=== PATIENT | female | born 1965 | race Hispanic/Latino ===

== ENCOUNTER 2017-11-21 16:09 | Emergency (ER) | payer MEDICAID ==
--- NOTE | 2017-11-21 16:15 | ED PDOC ---
Arrival/HPI - General Time Seen by Provider: 11/21/17 16:10 Historian: Patient - History of Present Illness Narrative History of Present Illness (Text): 11/21/17 16:13 52yo female with PMhx of hypertension, HLD, Diabetes, renal mass, s/p cholecystectomy and appendectomy bib EMS for abdominal pain and associated nausea and vomiting since last night. Past Medical History - Provider Review Nursing Documentation Reviewed: Yes - Infectious Disease Hx of Infectious Diseases: None - Tetanus Immunization Tetanus Immunization: Unknown - Cardiac Hx Hypertension: Yes - Pulmonary Hx Lung Cancer: Yes (Questionable) - Neurological Hx Neurological Disorder: No - HEENT Hx HEENT Disorder: No - Renal Hx Renal Disorder: Yes (Stage 2) - Endocrine/Metabolic Hx Diabetes Mellitus Type 1: Yes - Hematological/Oncological Hx Cancer: Yes (renal) - Integumentary Hx Dermatological Disorder: No - Musculoskeletal/Rheumatological Hx Falls: No - Gastrointestinal Hx Gastrointestinal Ulcer: Yes - Genitourinary/Gynecological Hx Genitourinary Disorders: No - Psychiatric Hx Substance Use: No - Surgical History Other/Comment: 2014 TUMOR REMOVAL OF RIGHT KIDNEY PER PATIENT - Anesthesia Hx Anesthesia: Yes Hx Anesthesia Reactions: No Hx Malignant Hyperthermia: No - Suicidal Assessment Feels Threatened In Home Enviroment: No Family/Social History - Physician Review Nursing Documentation Reviewed: Yes Family/Social History: Unknown Family HX Smoking Status: Never Smoked Hx Alcohol Use: No Hx Substance Use: No Hx Substance Use Treatment: No Allergies/Home Meds Allergies/Adverse Reactions: Allergies No Known Allergies Allergy (Verified 06/12/17 15:43) Home Medications: Home Meds Medication Instructions Recorded Confirmed Atorvastatin [Lipitor] 20 mg PO DAILY 11/01/16 06/12/17 Insulin Lispro [Humalog (Insulin 100 unit SQ AC 11/01/16 11/01/16 Lispro)] Valsartan [Diovan] 160 mg PO DAILY 11/01/16 06/12/17 Alogliptin Benzoate [Alogliptin] 25 mg PO DAILY 06/12/17 06/12/17 Insulin Glargine,Hum.rec.anlog 20 unit SQ HS 06/12/17 06/12/17 [Basaglar Kwikpen U-100] Insulin Lispro [Humalog Kwikpen 15 unit SQ TID 06/12/17 06/12/17 U-100] Omeprazole 40 mg PO DAILY 06/12/17 06/12/17 Spironolactone [Aldactone] 25 mg PO DAILY 06/12/17 06/12/17 metFORMIN [glucOPHAGE] 500 mg PO BID 06/12/17 06/12/17 Review of Systems - Physician Review All systems were reviewed & negative as marked: Yes - Review of Systems Constitutional: Normal Eyes: Normal ENT: Normal Respiratory: Normal Cardiovascular: Normal Gastrointestinal: Abdominal Pain, Nausea, Vomiting. absent: Constipation, Diarrhea, Hematochezia, Hematemesis Genitourinary Female: Normal Musculoskeletal: Normal Skin: Normal Neurological: Dizziness. absent: Headache, Focal Weakness, Gait Changes, Speech Changes Endocrine: Normal Hemo/Lymphatic: Normal Psychiatric: Normal Physical Exam Vital Signs Reviewed: Yes Vital Signs Temp Pulse Resp BP Pulse Ox 11/21/17 16:40 99.4 F 11/21/17 16:18 108 H 18 170/100 H 96 Temperature: Afebrile Blood Pressure: Normal Pulse: Regular Respiratory Rate: Normal Appearance: Positive for: Well-Appearing, Non-Toxic, Comfortable, Other (Morbid obesity) Pain Distress: None Mental Status: Positive for: Alert and Oriented X 3 - Systems Exam Head: Present: Atraumatic, Normocephalic Pupils: Present: PERRL Extroacular Muscles: Present: EOMI Conjunctiva: Present: Normal Mouth: Present: Moist Mucous Membranes Neck: Present: Normal Range of Motion Respiratory/Chest: Present: Clear to Auscultation, Good Air Exchange. No: Respiratory Distress, Accessory Muscle Use Cardiovascular: Present: Regular Rate and Rhythm, Normal S1, S2. No: Murmurs Abdomen: Present: Normal Bowel Sounds. No: Tenderness, Distention, Peritoneal Signs Back: Present: Normal Inspection Upper Extremity: Present: Normal Inspection. No: Cyanosis, Edema Lower Extremity: Present: Normal Inspection. No: Edema Neurological: Present: GCS=15, CN II-XII Intact, Speech Normal Skin: Present: Warm, Dry, Normal Color. No: Rashes Psychiatric: Present: Alert, Oriented x 3, Normal Insight, Normal Concentration Medical Decision Making - Lab Interpretations Lab Results: 11/21/17 16:35 11/21/17 16:35 Lab Results 11/21/17 17:13: Urine Color Yellow, Urine Appearance Clear, Urine pH 6.0, Ur Specific [place] >= 1.030, Urine Protein >=300 H, Urine Glucose (UA) Negative, Urine Ketones Negative, Urine Blood Small H, Urine Nitrate Positive H, Urine Bilirubin Negative, Urine Urobilinogen 0.2, Ur Leukocyte Esterase Negative, Urine RBC 5 - 10, Urine WBC 25 - 30, Ur Epithelial Cells 3 - 4, Calcium Oxalate Crystal Mod, Urine Bacteria Large, Urine Other Mucus 11/21/17 16:35: Sodium 142, Potassium 3.6, Chloride 102, Carbon Dioxide 25, Anion Gap 19, BUN 17, Creatinine 1.0, Est GFR ( Amer) > 60, Est GFR (Non- Af Amer) 59, Random Glucose 145 H, Calcium 10.2, Total Bilirubin 0.7, AST 52 H, ALT 63 H, Alkaline Phosphatase 114, Total Protein 8.8 H, Albumin 4.5, Globulin 4.3, Albumin/Globulin Ratio 1.0 L, Lipase 146 11/21/17 16:35: PT 10.8, INR 0.95, APTT 32.5 11/21/17 16:35: WBC 9.6 D, RBC 4.49, Hgb 11.8 L, Hct 37.5, MCV 83.5, MCH 26.3, MCHC 31.5, RDW 13.9, Plt Count 327, MPV 10.0, Gran % 70.9 H, Lymph % (Auto) 20.9 L, [place] % (Auto) 6.2 H, Eos % (Auto) 1.7, Baso % (Auto) 0.3, Gran # 6.83 H , Lymph # (Auto) 2.0, [place] # (Auto) 0.6, Eos # (Auto) 0.2, Baso # (Auto) 0.03 - RAD Interpretation Radiology Orders: 11/21/17 16:35 ABD & PELVIS W/O PO OR IV CONT [CT] Stat - Medication Orders Current Medication Orders: Discontinued Medications Cephalexin Monohydrate (Keflex) 500 mg PO STAT STA PRN Reason: Protocol Stop: 11/21/17 17:58 Famotidine (Pepcid) 20 mg IVP STAT STA Stop: 11/21/17 16:36 Last Admin: 11/21/17 17:16 Dose: 20 mg IVP Administration Document 11/21/17 17:16 SF (Rec: 11/21/17 17:16 SF [id number]) Charges for Administration # of IVP Administrations 1 Sodium Chloride (Sodium Chloride 0.9%) 1,000 mls @ 1,000 mls/hr IV .Q1H STA Stop: 11/21/17 17:34 Last Admin: 11/21/17 16:35 Dose: 1,000 mls/hr eMAR Start Stop Document 11/21/17 16:35 SF (Rec: 11/21/17 17:15 SF [id number]) Intravenous Solution Start Date 11/21/17 Start Time 16:35 End Date 11/21/17 End time 17:35 Total Infusion Time 60 Ondansetron HCl (Zofran Inj) 4 mg IVP STAT STA Stop: 11/21/17 16:36 Last Admin: 11/21/17 16:35 Dose: 4 mg IVP Administration Document 11/21/17 16:35 SF (Rec: 11/21/17 17:16 SF [id number]) Charges for Administration # of IVP Administrations 1 Disposition/Present on Arrival - Present on Arrival Any Indicators Present on Arrival: No History of DVT/PE: No History of Uncontrolled Diabetes: Yes Urinary Catheter: No History Surgical Site Infection Following: None - Disposition Have Diagnosis and Disposition been Completed?: Yes Diagnosis: Urinary tract infection, Abdominal pain, Vomiting Disposition: HOME/ ROUTINE Disposition Time: 18:10 Isolation: Special Contact Patient Plan: Discharge Condition: STABLE Discharge Instructions (ExitCare): Urinary Tract Infections in Adults Additional Instructions: Follow up with your Doctor and take the antibiotics given by your Doctor as was prescribed REturn to ED for any new or worsening symptoms Referrals: [facility] [place] [facility] [place] - Follow up with primary
[2017-11-21 16:24] VITALS: BMI 33.2
[2017-11-21] MEDS ORDERED: Sodium Chloride 0.9% 1,000 ML IV STA (16:35)
[2017-11-21 16:41] VITALS: TEMP 99.4
[2017-11-21 16:50] LABS: BASO # 0.03 K/mm3 (0.0-2.0); BASO % 0.3 % (0.0-3.0); EOS # 0.2 (0.0-0.7); EOS % 1.7 % (1.5-5.0); GRAN # 6.83 (1.4-6.5); GRAN % 70.9 % (50.0-68.0); HEMOGLOBIN 11.8 g/dL (12.0-16.0); LYMPH % 20.9 % (22.0-35.0); MEAN CELL VOLUME 83.5 fl (80.0-105.0); MEAN CORPUSCULAR HEMOGLOBIN 26.3 pg (25.0-35.0); MEAN CORPUSCULAR HGB CONC 31.5 g/dl (31.0-37.0); MONO # 0.6 (0.1-0.6); MONO % 6.2 % (1.0-6.0); RBC 4.49 10^6/uL (3.5-6.1); RED CELL DISTRIBUTION WIDTH 13.9 % (11.5-14.5); WHITE BLOOD COUNT 9.6 10^3/ul (4.5-11.0)
[2017-11-21 16:56] LABS: ALBUMIN 4.5 g/dL (3.0-4.8); ALT/SGPT 63 U/L (7-56); AST/SGOT 52 U/L (14-36); BLOOD UREA NITROGEN 17 mg/dL (7-21); CALCIUM 10.2 mg/dL (8.4-10.5); GFR AFRICAN-AMERICAN > 60; GFR NON-AFRICAN AMERICAN 59; LIPASE 146 U/L (23-300)
[2017-11-21 17:12] LABS: INR 0.95 (0.93-1.08); PARTIAL THROMBOPLASTIN TIME 32.5 Seconds (25.1-36.5); PROTHROMBIN TIME 10.8 SECONDS (9.4-12.5)
[2017-11-21 17:28] LABS: URINE BILIRUBIN NEGATIVE (NEGATIVE); URINE BLOOD SMALL (NEGATIVE); URINE GLUCOSE (UA) NEGATIVE (NEGATIVE); URINE LEUKOCYTE ESTERASE NEGATIVE Leu/uL (NEGATIVE); URINE PROTEIN >=300 mg/dL (<30 mg/dL); URINE UROBILINOGEN 0.2 E.U./dL (<1 E.U./dL)
[2017-11-21 17:29] LABS: URINE APPEARANCE CLEAR (CLEAR); URINE COLOR YELLOW (YELLOW)
[2017-11-21 17:54] LABS: URINE BACTERIA LARGE (NEG); URINE CALCIUM OXALATE CRYSTALS MOD /hpf; URINE WBC 25 - 30 /hpf (0-6)
--- NOTE | 2017-11-21 17:56 | CT ---
PROCEDURE: CT Abdomen and Pelvis without intravenous contrast HISTORY: Dizziness, vomiting and right upper quadrant/back pain COMPARISON: 12/12/2014 CT abdomen and pelvis. 01/26/2016 abdominal ultrasound TECHNIQUE: Unenhanced study. Neither oral nor intravenous contrast administered. Radiation dose: Total exam DLP = Total exam DLP = 914.76 mGy-cm. This CT exam was performed using one or more of the following dose reduction techniques: Automated exposure control, adjustment of the mA and/or kV according to patient size, and/or use of iterative reconstruction technique. FINDINGS: LOWER THORAX: Small and stable hiatal hernia. LIVER: Hepatic steatosis. No focal masses. No intrahepatic bile duct dilatation or perihepatic ascites. GALLBLADDER AND BILE DUCTS: Status post cholecystectomy. No abnormality is seen in the gallbladder fossa. PANCREAS: Unremarkable. No gross lesion or ductal dilatation. SPLEEN: Unremarkable. ADRENALS: Unremarkable. No mass. KIDNEYS AND URETERS: Unremarkable. No hydronephrosis. No solid mass. VASCULATURE: Unremarkable. No aortic aneurysm. BOWEL: Diverticulosis without an acute inflammatory component or other associated pathologic process. APPENDIX: No abnormalities to suggest acute appendicitis. No right lower quadrant inflammatory processes identified. PERITONEUM: Unremarkable. No free fluid. No free air. LYMPH NODES: Unremarkable. No enlarged lymph nodes. BLADDER: Unremarkable. REPRODUCTIVE: Unremarkable. BONES: No acute fracture. OTHER FINDINGS: Postoperative changes anterior abdominal wall with scarring. The findings are improved compared to the prior CT scan. IMPRESSION: No acute findings related to/accounting for the clinical presentation. Additional benign and/or incidental findings described above. No significant interval change compared to the prior examination(s).
[2017-11-21 18:57] VITALS: O2SAT 98
[2017-11-21 18:59] VITALS: BP 166/90; PULSE 90; RESP 17
== END 2017-11-21 18:59 | disposition home or self-care (01) ==
LOC: ED 16:09
DX: N39.0 Urinary tract infection, site not specified (principal); R10.9 Unspecified abdominal pain; R11.2 Nausea with vomiting, unspecified; E11.9 Type 2 diabetes mellitus without complications; E78.5 Hyperlipidemia, unspecified; I10 Essential (primary) hypertension
CPT/HCPCS: 74176; 80053; 81001; 83690; 85025; 85610; 85730; 87086; 96361; 96374; 96375; 99285; J2405; J7040

== ENCOUNTER 2018-02-06 10:14 | Emergency (ER) | payer MEDICAID ==
[2018-02-06 10:14] VITALS: BMI 33.2
[2018-02-06 10:32] VITALS: RESP 16
--- NOTE | 2018-02-06 11:36 | ED PDOC ---
Arrival/HPI - General Chief Complaint: Abnormal Skin Integrity Time Seen by Provider: 02/06/18 11:30 Historian: Patient - History of Present Illness Narrative History of Present Illness (Text): 02/06/18 11:31 52yo female with PMhx of diabetes who present with left second finger laceration. States she accidentally cut her finger with a knife while cooking. She is not sure of her tetanus status. She denies any other complaint. Past Medical History - Provider Review Nursing Documentation Reviewed: Yes - Infectious Disease Hx of Infectious Diseases: None - Tetanus Immunization Tetanus Immunization: Unknown - Cardiac Hx Cardiac Disorders: Yes Hx Hypertension: Yes - Pulmonary Hx Respiratory Disorders: Yes Hx Lung Cancer: Yes - Neurological Hx Neurological Disorder: No - HEENT Hx HEENT Disorder: No - Renal Hx Renal Disorder: Yes Hx Renal Cancer: Yes - Endocrine/Metabolic Hx Endocrine Disorders: Yes Hx Diabetes Mellitus Type 1: Yes - Hematological/Oncological Hx Blood Disorders: Yes Hx Cancer: Yes - Integumentary Hx Dermatological Disorder: No - Musculoskeletal/Rheumatological Hx Musculoskeletal Disorders: Yes Other/Comment: CHRONIC PAIN - Gastrointestinal Hx Gastrointestinal Disorders: Yes Hx Gastrointestinal Ulcer: Yes - Genitourinary/Gynecological Hx Genitourinary Disorders: Yes Hx Urinary Tract Infection: Yes - Psychiatric Hx Psychophysiologic Disorder: No Hx Substance Use: No - Surgical History Other/Comment: 2014 TUMOR REMOVAL OF RIGHT KIDNEY PER PATIENT - Anesthesia Hx Anesthesia: Yes Hx Anesthesia Reactions: No Hx Malignant Hyperthermia: No - Suicidal Assessment Feels Threatened In Home Enviroment: No Family/Social History - Physician Review Nursing Documentation Reviewed: Yes Family/Social History: Unknown Family HX Smoking Status: Never Smoked Hx Alcohol Use: No Hx Substance Use: No Hx Substance Use Treatment: No Allergies/Home Meds Allergies/Adverse Reactions: Allergies No Known Allergies Allergy (Verified 02/06/18 10:25) Home Medications: Home Meds Medication Instructions Recorded Confirmed Atorvastatin [Lipitor] 20 mg PO DAILY 11/01/16 02/06/18 Insulin Lispro [Humalog (Insulin 100 unit SQ AC 11/01/16 02/06/18 Lispro)] Valsartan [Diovan] 160 mg PO DAILY 11/01/16 02/06/18 Insulin Glargine,Hum.rec.anlog 20 unit SQ HS 06/12/17 02/06/18 [Basaglar Kwikpen U-100] Insulin Lispro [Humalog Kwikpen 15 unit SQ TID 06/12/17 02/06/18 U-100] Omeprazole 40 mg PO DAILY 06/12/17 02/06/18 Spironolactone [Aldactone] 25 mg PO DAILY 06/12/17 02/06/18 metFORMIN [glucOPHAGE] 500 mg PO BID 06/12/17 02/06/18 Review of Systems - Physician Review All systems were reviewed & negative as marked: Yes - Review of Systems Constitutional: Normal Eyes: Normal ENT: Normal Respiratory: Normal Cardiovascular: Normal Gastrointestinal: Normal Genitourinary Female: Normal Musculoskeletal: Normal Skin: Laceration (Left index finger) Neurological: Normal Endocrine: Normal Hemo/Lymphatic: Normal Psychiatric: Normal Physical Exam Vital Signs Reviewed: Yes Vital Signs Temp Pulse Resp BP Pulse Ox 02/06/18 12:36 98 F 76 16 142/86 98 02/06/18 12:34 98 F 76 16 142/86 100 02/06/18 10:27 98.1 F 67 16 150/92 H 99 Temperature: Afebrile Blood Pressure: Normal Pulse: Regular Respiratory Rate: Normal Appearance: Positive for: Well-Appearing, Non-Toxic, Comfortable Pain Distress: None Mental Status: Positive for: Alert and Oriented X 3 - Systems Exam Head: Present: Atraumatic, Normocephalic Pupils: Present: PERRL Extroacular Muscles: Present: EOMI Conjunctiva: Present: Normal Mouth: Present: Moist Mucous Membranes Neck: Present: Normal Range of Motion Respiratory/Chest: Present: Clear to Auscultation, Good Air Exchange. No: Respiratory Distress, Accessory Muscle Use Cardiovascular: Present: Regular Rate and Rhythm, Normal S1, S2. No: Murmurs Abdomen: No: Tenderness, Distention, Peritoneal Signs Back: Present: Normal Inspection Upper Extremity: Present: Normal Inspection. No: Cyanosis, Edema Lower Extremity: Present: Normal Inspection. No: Edema Neurological: Present: GCS=15, CN II-XII Intact, Speech Normal Skin: Present: Warm, Dry, Normal Color, Laceration (1.0cm circular partially avulsed laceration to tip of left index). No: Rashes Psychiatric: Present: Alert, Oriented x 3, Normal Insight, Normal Concentration Medical Decision Making ED Course and Treatment: 02/06/18 20:13 PT presented with finger laceration. Edges approximated with steri strip and dermabond Tetanus booster updated Pt have hx of diabetes placed on prophylactic abx Referred to her PMD - Medication Orders Current Medication Orders: Discontinued Medications Acetaminophen (Tylenol 325mg Tab) 650 mg PO STAT STA Stop: 02/06/18 11:45 Last Admin: 02/06/18 11:51 Dose: 650 mg MAR Pain/Vitals Document 02/06/18 11:51 [facility] (Rec: 02/06/18 11:51 [facility] [id number]) Location Left, Right or Bilateral Left Pain Location Body Site Finger Intensity 5 Cephalexin Monohydrate (Keflex) 500 mg PO STAT STA PRN Reason: Protocol Stop: 02/06/18 11:46 Last Admin: 02/06/18 11:51 Dose: 500 mg Tetanus/Reduced Diphtheria/Acell Pertussis (Boostrix Vaccine Inj) 0.5 ml IM .ONCE ONE Stop: 02/06/18 11:45 Last Admin: 02/06/18 11:50 Dose: 0.5 ml Immunization Registry Document 02/06/18 11:50 [facility] (Rec: 02/06/18 11:50 [facility] [id number]) Immunization Registry Consent Date 11/21/17 Procedure: Wound Repair - Consent Obtained Consent obtained: Verbal - Performed by Performed by: Mid-level Provider - Indications Indication(s):: Laceration - Location Finger:: Left, Index Shape:: Curvilinear Dimensions Length cm: 1.0 - Debris Debris:: None - Wound repair method Derry:: Tissue glue, Steri-strips - Muscle repiar layer closed with Muscle repair layer closed with:: Wound well approximated, Dressing applied, Tetanus ordered - Patient tolerated procedure Patient Tolerated Procedure:: Well Disposition/Present on Arrival - Present on Arrival Any Indicators Present on Arrival: No History of DVT/PE: No History of Uncontrolled Diabetes: Yes Urinary Catheter: No History of Decub. Ulcer: No History Surgical Site Infection Following: None - Disposition Have Diagnosis and Disposition been Completed?: Yes Diagnosis: Finger laceration Disposition: HOME/ ROUTINE Disposition Time: 12:25 Patient Plan: Discharge Condition: STABLE Discharge Instructions (ExitCare): Laceration Repair Additional Instructions: Keep wound clean and dry Follow up with your doctor Return to ED for any new or worsening symptoms Prescriptions: Cephalexin [Keflex] 500 mg PO TID #21 capsule Referrals: [facility] at [facility] [place]Outside] - Follow up with primary Forms: [employer] (Uzbek)
[2018-02-06] MEDS ORDERED: TDAP Vaccine 0.5 mL Syr IM ONE (11:44)
[2018-02-06 12:35] VITALS: BP 142/86; PULSE 76; TEMP 98
[2018-02-06 12:37] VITALS: O2SAT 98
== END 2018-02-06 12:39 | disposition home or self-care (01) ==
LOC: ED 10:14
DX: S61.211A Laceration without foreign body of left index finger without damage to nail, initial encounter (principal); W26.0XXA Contact with knife, initial encounter; Y93.G3 Activity, cooking and baking; Y92.89 Other specified places as the place of occurrence of the external cause; Z23 Encounter for immunization

== ENCOUNTER 2018-06-28 19:17 | Inpatient (IN) | payer MEDICAID ==
[2018-06-28 19:32] VITALS: BMI 28.5
[2018-06-28] MEDS ORDERED: Morphine 2 mg/ml ISec IVP STA (19:35)
[2018-06-28] MEDS ORDERED: Sodium Chloride 0.9% 1,000 ML IV STA (19:35)
--- NOTE | 2018-06-28 20:35 | ED PDOC ---
Arrival/HPI - General Chief Complaint: Abdominal Pain Time Seen by Provider: 06/28/18 19:30 Historian: Patient - History of Present Illness Narrative History of Present Illness (Text): 06/28/18 19:30 Hilary Naranjo is a 52 year old female, whose past medical history includes hypertension, diabetes, UTIs, kidney tumor, and cholecystectomy, who presents to the ED complaining of abdominal pain. Patient states she has been experiencing RUQ for 1 day. Patient denies any nausea, vomiting, diarrhea, chest pain, urinary symptoms, or any other complaints. Time/Duration: 24 hours Symptom Onset: Gradual Symptom Course: Unchanged Activities at Onset: Light Context: Home Past Medical History - Provider Review Nursing Documentation Reviewed: Yes - Infectious Disease Hx of Infectious Diseases: None - Tetanus Immunization Tetanus Immunization: Unknown - Cardiac Hx Hypertension: Yes - Pulmonary Hx Respiratory Disorders: Yes Hx Lung Cancer: Yes - Neurological Hx Neurological Disorder: No - HEENT Hx HEENT Disorder: No - Renal Hx Renal Disorder: Yes - Endocrine/Metabolic Hx Endocrine Disorders: Yes Hx Diabetes Mellitus Type 1: Yes - Hematological/Oncological Hx Blood Disorders: Yes Hx Cancer: Yes - Integumentary Hx Dermatological Disorder: No - Musculoskeletal/Rheumatological Hx Musculoskeletal Disorders: Yes Other/Comment: CHRONIC PAIN - Gastrointestinal Hx Gastrointestinal Ulcer: Yes - Genitourinary/Gynecological Hx Genitourinary Disorders: Yes Hx Urinary Tract Infection: Yes - Psychiatric Hx Substance Use: No - Surgical History Hx Appendectomy: Yes Hx Cholecystectomy: Yes - Anesthesia Hx Anesthesia: Yes Hx Anesthesia Reactions: No Hx Malignant Hyperthermia: No - Suicidal Assessment Feels Threatened In Home Enviroment: No Family/Social History - Physician Review Nursing Documentation Reviewed: Yes Family/Social History: Unknown Family HX Smoking Status: Never Smoked Hx Alcohol Use: No Hx Substance Use: No Hx Substance Use Treatment: No Allergies/Home Meds Allergies/Adverse Reactions: Allergies No Known Allergies Allergy (Verified 02/06/18 10:25) Home Medications: Home Meds Medication Instructions Recorded Confirmed Atorvastatin [Lipitor] 20 mg PO DAILY 11/01/16 02/06/18 Insulin Lispro [Humalog (Insulin 100 unit SQ AC 11/01/16 02/06/18 Lispro)] Valsartan [Diovan] 160 mg PO DAILY 11/01/16 02/06/18 Insulin Glargine,Hum.rec.anlog 20 unit SQ HS 06/12/17 02/06/18 [Basaglar Kwikpen U-100] Insulin Lispro [Humalog Kwikpen 15 unit SQ TID 06/12/17 02/06/18 U-100] Omeprazole 40 mg PO DAILY 06/12/17 02/06/18 Spironolactone [Aldactone] 25 mg PO DAILY 06/12/17 02/06/18 metFORMIN [glucOPHAGE] 500 mg PO BID 06/12/17 02/06/18 Review of Systems - Physician Review All systems were reviewed & negative as marked: Yes - Review of Systems Constitutional: Normal Eyes: Normal ENT: Normal Respiratory: Normal Cardiovascular: Normal Gastrointestinal: Abdominal Pain. absent: Diarrhea, Nausea, Vomiting Genitourinary Female: Normal Musculoskeletal: Normal Skin: Normal Neurological: Normal Endocrine: Normal Hemo/Lymphatic: Normal Psychiatric: Normal Physical Exam Vital Signs Reviewed: Yes Vital Signs Temp Pulse Resp BP Pulse Ox 06/28/18 19:37 97.4 F L 67 18 118/80 96 Temperature: Afebrile Blood Pressure: Normal Pulse: Regular Respiratory Rate: Normal Appearance: Positive for: Well-Appearing, Non-Toxic, Comfortable Pain Distress: None Mental Status: Positive for: Alert and Oriented X 3 - Systems Exam Head: Present: Atraumatic, Normocephalic Pupils: Present: PERRL Extroacular Muscles: Present: EOMI Conjunctiva: Present: Normal Mouth: Present: Moist Mucous Membranes Neck: Present: Normal Range of Motion Respiratory/Chest: Present: Clear to Auscultation, Good Air Exchange. No: Respiratory Distress, Accessory Muscle Use Cardiovascular: Present: Regular Rate and Rhythm, Normal S1, S2. No: Murmurs Abdomen: Present: Tenderness (RUQ tenderness). No: Distention, Peritoneal Signs Back: Present: Normal Inspection Upper Extremity: Present: Normal Inspection. No: Cyanosis, Edema Lower Extremity: Present: Normal Inspection. No: Edema Neurological: Present: GCS=15, CN II-XII Intact, Speech Normal Skin: Present: Warm, Dry, Normal Color. No: Rashes Psychiatric: Present: Alert, Oriented x 3, Normal Insight, Normal Concentration Medical Decision Making ED Course and Treatment: 06/28/18 19:30 Impression: 52 year old female c/o RUQ pain x 1 day. Plan: -- Hepatic US -- EKG -- Labs, cardiac enzymes, amylase, lipase, blood cultures -- UA, urine cultures -- IV fluids -- Zofran -- Pepcid -- Morphine -- Reassess and disposition Progress Notes: Reviewed EKG, NSR at [address]-segment elevations or depressions, no T-wave inversions, normal intervals. 06/28/18 21:35 Hepatic US reviewed, shows: Liver Measures 13.89 x 10.76 cm. Increased echogenicity of the liver parenchyma. No mass. No intrahepatic bile duct dilatation. Gallbladder Removed. Common bile duct Measures 7.4 mm. No stones. No dilatation. Pancreas Unremarkable as visualized. No mass. No ductal dilatation. Right kidney Measures 9.35 x 3.75 x 4.3 cm in length. Normal echogenicity. No calculus, mass, or hydronephrosis. Aorta No aneurysmal dilatation. IVC Unremarkable. Other Findings None. Impression 1. Fatty liver. 2. Status post cholecystectomy. Electronically signed on Jun 28, 2018 9:20:01 PM EDT by: Da Morocho M.D., MBA Certified By ABR & [employer] Fellowship Trained MRI and CT Specialist CT Abdomen and Pelvis ordered. 06/28/18 23:14 CT Abdomen and Pelvis reviewed, shows: The liver is of uniform attenuation without mass or defect. There is minimal intrahepatic biliary ductal dilatation, this is likely related to cholecystectomy status. CBD measures up to 7 mm within limits of normal. The spleen is normal. The patient is status post cholecystectomy. The pancreas is of normal contour and attenuation characteristics. There is no evidence of adrenal mass. Post surgical changes are present in the anterior abdominal wall. There is a small fat containing right anterior abdominal wall hernia. Both kidneys demonstrate prompt and equal nephrograms. The kidneys are normal in size, shape and configuration. There is no evidence of renal or ureteral mass. No renal or ureteral calculi are identified. There is no hydroureter or hydronephrosis. No evidence for appendicitis. There is evidence of circumferential wall thickening involving all colonic segments consistent with mild humphries-colitis. No evidence for small or large bowel obstruction. Scattered colonic diverticulae are present with no evidence of acute diverticulitis. There is no evidence of abdominal ascites or lymphadenopathy. The uterus and ovaries are unremarkable. There is no evidence of intrinsic or extrinsic bladder mass. There is no pelvic ascites or lymphadenopathy. Images of the lung bases show no evidence of pleural or parenchymal mass. There are no pleural effusions. Small hiatal hernia is present. The bony structures are free of lytic or blastic lesions. IMPRESSION: 1. Mild pancolitis. 2. Minimal intrahepatic biliary ductal dilatation, this is likely related to cholecystectomy status. 3. Small fat containing right anterior abdominal wall hernia. 4. Scattered colonic diverticulae with no evidence of acute diverticulitis. 5. Small hiatal hernia. Electronically signed on Jun 28, 2018 10:56:15 PM EDT by: Da Morocho M.D., THIERRY Certified By ABR & CBC[employer] Fellowship Trained MRI and CT Specialist. 06/29/18 00:00 Case discussed with medical billing assistant contact officer, who is aware and agrees with plan. 06/29/18 00:[address] Raad Antony, who is aware and agrees with plan. Accepts pt in to hospitalist service. [facility] for pancolitis. - Lab Interpretations I have reviewed the lab results: Yes - RAD Interpretation Radiology Orders: 06/28/18 19:37 HEPATIC [US] Stat Patient Case Coordinator: Radiologist - EKG Interpretation Interpreted by ED Physician: Yes Type: 12 lead EKG - Medication Orders Current Medication Orders: Sodium Chloride (Sodium Chloride 0.9%) 1,000 mls @ 100 mls/hr IV .Q10H STA Stop: 06/29/18 05:34 Discontinued Medications Famotidine (Pepcid) 20 mg IVP STAT STA Stop: 06/28/18 19:36 Morphine Sulfate (Morphine) 2 mg IVP STAT STA Stop: 06/28/18 19:36 Ondansetron HCl (Zofran Inj) 4 mg IVP STAT STA Stop: 06/28/18 19:36 - Scribe Statement The provider has reviewed the documentation as recorded by the Scribotilia Ornelas All medical record entries made by the Scribe were at my direction and personally dictated by me. I have reviewed the chart and agree that the record accurately reflects my personal performance of the history, physical exam, medical decision making, and the department course for this patient. I have also personally directed, reviewed, and agree with the discharge instructions and disposition. Disposition/Present on Arrival - Present on Arrival Any Indicators Present on Arrival: No History of DVT/PE: No History of Uncontrolled Diabetes: Yes Urinary Catheter: No History of Decub. Ulcer: No History Surgical Site Infection Following: None - Disposition Have Diagnosis and Disposition been Completed?: Yes Diagnosis: Abdominal pain, Pancolitis Disposition: HOSPITALIZED Disposition Time: 00:05 Condition: FAIR
[2018-06-28 21:25] LABS: ALB/GLOB RATIO 1.3 (1.1-1.8); ALT/SGPT 164 U/L (7-56); AMYLASE 68 U/L (35-125); AST/SGOT 161 U/L (14-36); BLOOD UREA NITROGEN 15 mg/dL (7-21); CALCIUM 8.9 mg/dL (8.4-10.5); GFR NON-AFRICAN AMERICAN 59; LIPASE 83 U/L (23-300)
[2018-06-28 21:27] LABS: INR 1.09; PARTIAL THROMBOPLASTIN TIME 30.8 Seconds (25.1-36.5); PROTHROMBIN TIME 12.5 SECONDS (9.4-12.5)
[2018-06-28 21:29] LABS: BASO # 0.02 K/mm3 (0.0-2.0); BASO % 0.3 % (0.0-3.0); EOS # 0.1 (0.0-0.7); GRAN # 5.43 (1.4-6.5); HEMOGLOBIN 9.9 g/dL (12.0-16.0); LYMPH # 1.7 (1.2-3.4); LYMPH % 22.3 % (22.0-35.0); MEAN CELL VOLUME 83.5 fl (80.0-105.0); MEAN CORPUSCULAR HEMOGLOBIN 26.4 pg (25.0-35.0); MEAN CORPUSCULAR HGB CONC 31.6 g/dl (31.0-37.0); MEAN PLATELET VOLUME 9.6 fl (7.0-11.0); MONO # 0.5 (0.1-0.6); MONO % 6.4 % (1.0-6.0); RBC 3.75 10^6/uL (3.5-6.1); RED CELL DISTRIBUTION WIDTH 13.6 % (11.5-14.5); WHITE BLOOD COUNT 7.8 10^3/ul (4.5-11.0)
[2018-06-28 21:34] LABS: TROPONIN I < 0.01 ng/mL
[2018-06-28] MEDS ORDERED: Iohexol 350 MG/100 ML VIAL ONE (21:45)
[2018-06-28] MEDS ORDERED: Ciprofloxacin 400mg/200ml D5W 400 MG/200 ML BAG IVPB STA (23:59)
[2018-06-29] MEDS ORDERED: metroNIDAZOLE IV 500 mg/100 ml 500 MG/100 ML BAG IVPB STA (00:01)
[2018-06-29 00:33] LABS: PH,URINE 6.5 (4.7-8.0); URINE BILIRUBIN NEGATIVE (NEGATIVE); URINE BLOOD TRACE-INTACT (NEGATIVE); URINE GLUCOSE (UA) NEGATIVE (NEGATIVE); URINE LEUKOCYTE ESTERASE NEGATIVE Leu/uL (NEGATIVE); URINE PROTEIN TRACE mg/dL (<30 mg/dL); URINE UROBILINOGEN 0.2 E.U./dL (<1 E.U./dL)
[2018-06-29 00:34] LABS: URINE APPEARANCE CLEAR (CLEAR); URINE COLOR YELLOW (YELLOW)
[2018-06-29 00:36] LABS: URINE BACTERIA RARE (NEG); URINE RBC 0 - 2 /hpf (0-2)
[2018-06-29] MEDS ORDERED: Insulin Detemir 100 units/ml Vial (Levemir) SC SCH ×2 (01:00→22:00)
[2018-06-29] MEDS ORDERED: Pneumococcal 23-Valent Vaccine IM ONE (02:20)
[2018-06-29] MEDS ORDERED: Influenza Vaccine 60 mcg/0.5 mL SYR (4YR UP) IM ONE (02:20)
--- NOTE | 2018-06-29 04:08 | CP.PCM.HP ---
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 She reported that the pain is sharp non radiating worse w/eating. Denies any change in quality/ characteristic of pain with movement. She reports associated Fever/Chill w/ Tmax of 38C / 100.4F ; Associated NBNB Vomitus x4 episodes denies coffee ground emesis; Associated Diarrhea x2 days multiple episodes, non bloody, non fatty/oily. No recent Abx use. Denies any urinary hesitency, urge, dysuria, hematuria; Denies any chest pain, SOB, Cough, numbness/tingling Remainder of 12 system ROS is otherwise negative at this time. PMD: Charlie PMH: As above PSH: Partial Kidney Resection 2013, Cholecystectomy 2008, Hiatal hernia sx, Social: Denies EtOH, Tobacco, Illicit Drug use Present on Admission - Present on Admission Any Indicators Present on Admission: Yes Review of Systems - Review of Systems All systems: reviewed and no additional remarkable complaints except Review of Systems: As per HPI Past Patient History - Infectious Disease Hx of Infectious Diseases: None - Tetanus Immunizations Tetanus Immunization: Unknown - Past Medical History & Family History Past Medical History?: Yes - Past Social History Smoking Status: Never Smoked - CARDIAC Hx Hypertension: Yes - PULMONARY Hx Respiratory Disorders: Yes - NEUROLOGICAL Hx Neurological Disorder: No - HEENT Hx HEENT Problems: No - RENAL Hx Chronic Kidney Disease: Yes - ENDOCRINE/METABOLIC Hx Endocrine Disorders: Yes Hx Diabetes Mellitus Type 1: Yes - HEMATOLOGICAL/ONCOLOGICAL Hx Blood Disorders: Yes Hx Cancer: Yes - INTEGUMENTARY Hx Dermatological Problems: No - MUSCULOSKELETAL/RHEUMATOLOGICAL Hx Falls: No - GASTROINTESTINAL Hx Gastrointestinal Disorders: Yes - GENITOURINARY/GYNECOLOGICAL Hx Genitourinary Disorders: Yes Hx Urinary Tract Infection: Yes - PSYCHIATRIC Hx Substance Use: No - SURGICAL HISTORY Hx Appendectomy: Yes Hx Cholecystectomy: Yes - ANESTHESIA Hx Anesthesia: Yes Hx Anesthesia Reactions: No Hx Malignant Hyperthermia: No Meds Allergies/Adverse Reactions: Allergies Allergy/AdvReac Type Severity Reaction Status Date / Time No Known Allergies Allergy Verified 02/06/18 10:25 Physical Exam - Constitutional Appears: Well, Non-toxic, No Acute Distress - Head Exam Head Exam: ATRAUMATIC, NORMAL INSPECTION, NORMOCEPHALIC - Eye Exam Eye Exam: EOMI, Normal appearance, PERRL. absent: Scleral icterus - ENT Exam ENT Exam: Mucous Membranes Moist Additional comments: Poor dentition - Respiratory Exam Respiratory Exam: Clear to Auscultation Bilateral, NORMAL BREATHING PATTERN. absent: Rales, Rhonchi, Wheezes, Respiratory Distress - Cardiovascular Exam Cardiovascular Exam: RRR, +S1, +S2, Systolic Murmur - GI/Abdominal Exam GI & Abdominal Exam: Hypoactive Bowel Sounds, Soft, Tenderness (Epigastric ) Additional comments: Upon examination of the abdomen, The abdomen is diffusely obese There is significant scarring throughout the abdomen from previous surgerys [place] sign was negative No rebound tenderness appreciated Abdomen was soft w/ hypoactive bowel sounds There is epigastric tenderness to palpation; The region feels indurated and ends at a portion where a surgical scar begins. - Extremities Exam Extremities exam: Positive for: pedal pulses present. Negative for: pedal edema - Back Exam Back exam: absent: CVA tenderness (L), CVA tenderness (R) - Neurological Exam Neurological exam: Alert, CN II-XII Intact, Oriented x3 - Psychiatric Exam Psychiatric exam: Normal Affect, Normal Mood - Skin Skin Exam: Dry, Intact, Normal Color, Warm Results - Vital Signs Recent Vital Signs: Last Vital Signs Temp 97.4 F L 06/28/18 19:37 Pulse 69 06/29/18 01:10 Resp 20 06/29/18 02:00 BP 121/82 06/29/18 01:10 Pulse Ox 100 06/29/18 01:10 - Labs Result Diagrams: 06/28/18 20:45 06/28/18 20:45 Labs: Laboratory Results - last 24 hr 06/28/18 06/28/18 06/28/18 20:45 20:45 20:45 WBC 7.8 RBC 3.75 Hgb 9.9 L Hct 31.3 L MCV 83.5 MCH 26.4 MCHC 31.6 RDW 13.6 Plt Count 280 MPV 9.6 Gran % 70.0 H Lymph % (Auto) 22.3 Bath % (Auto) 6.4 H Eos % (Auto) 1.0 L Baso % (Auto) 0.3 Gran # 5.43 Lymph # (Auto) 1.7 Bath # (Auto) 0.5 Eos # (Auto) 0.1 Baso # (Auto) 0.02 PT 12.5 INR 1.09 APTT 30.8 Sodium 140 Potassium 4.1 Chloride 104 Carbon Dioxide 29 Anion Gap 12 BUN 15 Creatinine 1.0 Est GFR ( Amer) > 60 Est GFR (Non-Af Amer) 59 Random Glucose 94 Calcium 8.9 Total Bilirubin 0.9 AST 161 H D ALT 164 H Alkaline Phosphatase 94 Lactate Dehydrogenase 573 Total Creatine Kinase 103 Troponin I < 0.01 Total Protein 7.2 Albumin 4.0 Globulin 3.2 Albumin/Globulin Ratio 1.3 Amylase 68 Lipase 83 Urine Color Urine Appearance Urine pH Ur Specific [place] Urine Protein Urine Glucose (UA) Urine Ketones Urine Blood Urine Nitrate Urine Bilirubin Urine Urobilinogen Ur Leukocyte Esterase Urine RBC Urine WBC Ur Epithelial Cells Urine Bacteria 06/29/18 00:15 WBC RBC Hgb Hct MCV MCH MCHC RDW Plt Count MPV Gran % Lymph % (Auto) Bath % (Auto) Eos % (Auto) Baso % (Auto) Gran # Lymph # (Auto) Bath # (Auto) Eos # (Auto) Baso # (Auto) PT INR APTT Sodium Potassium Chloride Carbon Dioxide Anion Gap BUN Creatinine Est GFR ( Amer) Est GFR (Non-Af Amer) Random Glucose Calcium Total Bilirubin AST ALT Alkaline Phosphatase Lactate Dehydrogenase Total Creatine Kinase Troponin I Total Protein Albumin Globulin Albumin/Globulin Ratio Amylase Lipase Urine Color Yellow Urine Appearance Clear Urine pH 6.5 Ur Specific [place] <= 1.005 Urine Protein Trace H Urine Glucose (UA) Negative Urine Ketones Negative Urine Blood Trace-intact H Urine Nitrate Negative Urine Bilirubin Negative Urine Urobilinogen 0.2 Ur Leukocyte Esterase Negative Urine RBC 0 - 2 Urine WBC 1 - 3 Ur Epithelial Cells 1 - 3 Urine Bacteria Rare Assessment & Plan - Assessment and Plan (Free Text) Assessment: 52 year old Moroccan speaking female w/ a PMH of HLD, DM, GERD, Renal CA s/p partial resection, presented [place] [facility] [place] w/ a CC of RUQ/Epigastric Pain x1 day. Plan: Abdominal Pain w/ N/V Pancolitis vs Hepatitis vs Gastroenteritis Prelim CTAP Shows - Mild pancolitis, Minimal intrahepatic biliary ductal dilatation, this is likely related to cholecystectomy status. ; Small fat containing right anterior abdominal wall hernia. Scattered colonic diverticulae with no evidence of acute diverticulitis. Small hiatal hernia. Amylase/Lipase wnl Keep NPO + D5NS Start Cipro Start Flgagyl Zofran PRN ID Consulted, Appreciate reccs GI Consulted, Appreciate reccs Transaminitis - AST?ALT : 161/164 Autoimmune etiology vs Hepatitis vs REMY Prelim Abd U/S Shows - Fatty Liver, S/p Cholecystectomy Prelim CTAP - The liver is of uniform attenuation without mass or defect. There is minimal intrahepatic biliary ductal dilatation, this is likely related to cholecystectomy status. CBD measures up to 7 mm within limits of normal. Hep Panel ESR / CRP GI Consulted, Appreciate Reccs Diarrhea CDiff Toxin + Antibody Ova and Parasite Fecal Leukocyte Normocytic Anemia Ferritin/ Transferrin Iron TIBC Ferritin B12 Folate Reticulocyte FOBT Hx DM D5NS ISS LOW Q6H Accucheck Q6H Hx HLD Lipitor 20 QD Hx GERD Protonix 40 IVP QD PPX - GI: Protonix; DVT: Heparin SCD DISPO: Inpt adm to Med/Surg for Management and Work up of GI Complaints, Transaminitis, and Anemia Pt. is to follow up w/ PMD Martin Zepeda upon discharge Patient was seen, examined, and discussed w/ attending physician Dr. 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
[2018-06-29] MEDS: Dextrose 5%/0.9% NS 1,000 ML IV SCH ×4 (05:50→21:31)
[2018-06-29] MEDS: metroNIDAZOLE IV 500 mg/100 ml 500 MG/100 ML BAG IVPB SCH ×3 (05:50→21:32)
[2018-06-29] MEDS: Insulin Lispro (humaLOG) LOW Coverage SC SCH ×2 (05:50→11:36)
[2018-06-29 06:37] LABS: BASO # 0.02 K/mm3 (0.0-2.0); BASO % 0.3 % (0.0-3.0); EOS # 0.1 (0.0-0.7); EOS % 2.3 % (1.5-5.0); GRAN # 3.66 (1.4-6.5); GRAN % 63.9 % (50.0-68.0); HEMOGLOBIN 9.5 g/dL (12.0-16.0); LYMPH # 1.5 (1.2-3.4); LYMPH % 26.7 % (22.0-35.0); MEAN CELL VOLUME 84.1 fl (80.0-105.0); MEAN CORPUSCULAR HEMOGLOBIN 26.1 pg (25.0-35.0); MEAN PLATELET VOLUME 9.5 fl (7.0-11.0); MONO # 0.4 (0.1-0.6); MONO % 6.8 % (1.0-6.0); PLATELET COUNT 235 10^3/uL (120.0-450.0); RBC 3.64 10^6/uL (3.5-6.1); RED CELL DISTRIBUTION WIDTH 13.8 % (11.5-14.5); WHITE BLOOD COUNT 5.7 10^3/ul (4.5-11.0)
[2018-06-29 06:43] LABS: IRON 74 ug/dL (45-180)
[2018-06-29 06:57] LABS: % IRON SATURATION 22 % (20-55); ALB/GLOB RATIO 1.2 (1.1-1.8); ALBUMIN 3.5 g/dL (3.0-4.8); ALT/SGPT 134 U/L (7-56); AST/SGOT 112 U/L (14-36); BLOOD UREA NITROGEN 11 mg/dL (7-21); CALCIUM 8.3 mg/dL (8.4-10.5); GFR NON-AFRICAN AMERICAN > 60; HDL CHOLESTEROL 32 mg/dL (29-60); LDL CHOLESTEROL 46 mg/dL (0-129); TOTAL IRON BINDING CAPACITY 341 ug/dL (265-497)
[2018-06-29 08:39] LABS: ERYTHROCYTE SEDIMENTATION RATE 20 mm/hr (0.0-20.0)
--- NOTE | 2018-06-29 09:09 | CT ---
Date of service: 06/28/2018 PROCEDURE: CT Abdomen and Pelvis without intravenous contrast HISTORY: abd pain COMPARISON: 11/21/2017 TECHNIQUE: Technique. Contrast dose: Radiation dose: Total exam DLP = 772.47 mGy-cm. This CT exam was performed using one or more of the following dose reduction techniques: Automated exposure control, adjustment of the mA and/or kV according to patient size, and/or use of iterative reconstruction technique. FINDINGS: LOWER THORAX: Small hiatal hernia. LIVER: Unremarkable. No gross lesion or ductal dilatation. GALLBLADDER AND BILE DUCTS: Cholecystectomy. PANCREAS: Unremarkable. No gross lesion or ductal dilatation. SPLEEN: Unremarkable. ADRENALS: Unremarkable. No mass. KIDNEYS AND URETERS: Partial right nephrectomy. No hydronephrosis. No solid mass. VASCULATURE: Unremarkable. No aortic aneurysm. No aortic atherosclerotic calcification or mural plaque present. BOWEL: Colonic diverticula. No obstruction. No gross mural thickening. APPENDIX: Unremarkable. Normal appendix. PERITONEUM: Unremarkable. No free fluid. No free air. LYMPH NODES: Unremarkable. No enlarged lymph nodes. BLADDER: Unremarkable. REPRODUCTIVE: Unremarkable. BONES: No acute fracture. OTHER FINDINGS: Extensive thickening of the anterior abdominal wall with a roughly 2 centimeter right sided hernia containing omental fat. Findings likely postsurgical in nature. IMPRESSION: Partial right nephrectomy.Extensive thickening of the anterior abdominal wall with a roughly 2 centimeter right sided hernia containing omental fat. Findings likely postsurgical in nature. Cholecystectomy. Small hiatal hernia. Colonic diverticulosis.
[2018-06-29] MEDS ORDERED: Ciprofloxacin 400mg/200ml D5W 400 MG/200 ML BAG IVPB SCH (10:00)
--- NOTE | 2018-06-29 10:49 | CARD ---
APPROVED REPORT Date of service: 06/28/2018 EKG Measurement Heart [id number] <Conclusion> Normal sinus rhythm Small q in lll Normal ECG No change
--- NOTE | 2018-06-29 11:59 | US ---
Date of service: 06/28/2018 HISTORY: abd pain COMPARISON: None. TECHNIQUE: Sonographic evaluation of the right upper quadrant of the abdomen. FINDINGS: LIVER: Measures cm in length. Heterogeneous echogenicity of the liver parenchyma. No mass. No intrahepatic bile duct dilatation. GALLBLADDER: Cholecystectomy. COMMON BILE DUCT: Measures mm. No stones. No dilatation. PANCREAS: Unremarkable as visualized. No mass. No ductal dilatation. RIGHT KIDNEY: Measures cm in length. Normal echogenicity. No calculus, mass, or hydronephrosis. AORTA: No aneurysmal dilatation. IVC: Unremarkable. OTHER FINDINGS: None . IMPRESSION: Fibro/fatty infiltration liver. Cholecystectomy.
[2018-06-29 12:42] LABS: HEPATITIS A IGM NEGATIVE (NEGATIVE); HEPATITIS B CORE AB NEGATIVE (NEGATIVE)
[2018-06-29 12:46] LABS: HEPATITIS B SURFACE AG Negative (NEGATIVE)
[2018-06-29 12:53] LABS: HEPATITIS C ANTIBODY NEGATIVE (NEGATIVE)
[2018-06-29 13:23] LABS: FERRITIN 61.2 ng/mL
[2018-06-29 13:53] LABS: FOLATE 12.7 ng/mL
[2018-06-29] MEDS ORDERED: Morphine 2 mg/ml ISec IVP PRN (14:30)
[2018-06-29] MEDS ORDERED: Morphine 2 mg/ml ISec ONE (14:46)
[2018-06-29] MEDS: Morphine 2 mg/ml ISec IVP SCH (17:34)
--- NOTE | 2018-06-29 19:32 | CP.PCM.CON ---
History of Present Illness - History of Present Illness History of Present Illness: Infectious Disease Consultation: June 29, 2018 52 year old Iraqi speaking female w/ a PMH of HLD, DM, GERD, Renal CA s/p partial resection, presented [place] [facility] [place] w/ a CC of RUQ/Epigastric Pain x1 day. She reported that the pain is sharp non radiating worse w/eating. Denies any change in quality/ characteristic of pain with movement. Extensive hospitalization history at [facility]. She claims low grade fevers up to 100.4 She claims diarrhea and vomiting. History of E. Coli UTI from prior ER visits to [facility]. Urinalysis does not appear indicative for UTI. PMHx: HLD, DM, GERD, Renal Cancer PSHx: 2013 Partial nephrectomy, cholecystectomy, hernia repair Allergies: NKDA Social Hx: No tobacco, EtOH, or illicit drug use Active Medications Heparin Sodium (Porcine) (Heparin) 5,000 units SC Q12 JILL; Protocol Last Admin: 06/29/18 10:48 Dose: 5,000 units Metronidazole (Flagyl) 500 mg in 100 mls @ 100 mls/hr IVPB Q8 JILL; Protocol Last Admin: 06/29/18 14:25 Dose: 100 mls/hr Dextrose/Sodium Chloride (Dextrose 5%/0.9% Ns 1000 Ml) 1,000 mls @ 100 mls/hr IV .Q10H JILL Last Admin: 06/29/18 11:32 Dose: 100 mls/hr Insulin Human Lispro (Humalog Low) 0 units SC Q6 JILL; Protocol Last Admin: 06/29/18 11:36 Dose: Not Given Morphine Sulfate (Morphine) 2 mg IVP Q6 JILL Last Admin: 06/29/18 17:34 Dose: 2 mg Ondansetron HCl (Zofran Inj) 4 mg IVP Q6H PRN PRN Reason: Nausea/Vomiting Last Admin: 06/29/18 11:33 Dose: 4 mg Pantoprazole Sodium (Protonix Inj) 40 mg IVP DAILY JILL Last Admin: 06/29/18 10:48 Dose: 40 mg Family Hx: none given ROS: positive abdominal pain, nausea, vomiting, diarrhea No chest pain, melena, hematuria, hematemesis, hematochezia, depression, anxiety, vision loss, hearing loss, loss of consciousness. Past Patient History - Infectious Disease Hx of Infectious Diseases: None - Tetanus Immunizations Tetanus Immunization: Unknown - Past Medical History & Family History Past Medical History?: Yes - Past Social History Smoking Status: Never Smoked - CARDIAC Hx Hypertension: Yes - PULMONARY Hx Respiratory Disorders: Yes - NEUROLOGICAL Hx Neurological Disorder: No - HEENT Hx HEENT Problems: No - RENAL Hx Chronic Kidney Disease: Yes - ENDOCRINE/METABOLIC Hx Endocrine Disorders: Yes Hx Diabetes Mellitus Type 1: Yes - HEMATOLOGICAL/ONCOLOGICAL Hx Blood Disorders: Yes Hx Cancer: Yes - INTEGUMENTARY Hx Dermatological Problems: No - MUSCULOSKELETAL/RHEUMATOLOGICAL Hx Falls: No - GASTROINTESTINAL Hx Gastrointestinal Disorders: Yes - GENITOURINARY/GYNECOLOGICAL Hx Genitourinary Disorders: Yes Hx Urinary Tract Infection: Yes - PSYCHIATRIC Hx Substance Use: No - SURGICAL HISTORY Hx Appendectomy: Yes Hx Cholecystectomy: Yes - ANESTHESIA Hx Anesthesia: Yes Hx Anesthesia Reactions: No Hx Malignant Hyperthermia: No Meds Allergies/Adverse Reactions: Allergies Allergy/AdvReac Type Severity Reaction Status Date / Time No Known Allergies Allergy Verified 02/06/18 10:25 - Medications Medications: Current Medications Heparin Sodium (Porcine) (Heparin) 5,000 units SC Q12 JILL; Protocol Last Admin: 06/29/18 10:48 Dose: 5,000 units Metronidazole (Flagyl) 500 mg in 100 mls @ 100 mls/hr IVPB Q8 JILL; Protocol Last Admin: 06/29/18 14:25 Dose: 100 mls/hr Dextrose/Sodium Chloride (Dextrose 5%/0.9% Ns 1000 Ml) 1,000 mls @ 100 mls/hr IV .Q10H JILL Last Admin: 06/29/18 11:32 Dose: 100 mls/hr Insulin Human Lispro (Humalog Low) 0 units SC Q6 JILL; Protocol Last Admin: 06/29/18 11:36 Dose: Not Given Morphine Sulfate (Morphine) 2 mg IVP Q6 JILL Last Admin: 06/29/18 17:34 Dose: 2 mg Ondansetron HCl (Zofran Inj) 4 mg IVP Q6H PRN PRN Reason: Nausea/Vomiting Last Admin: 06/29/18 11:33 Dose: 4 mg Pantoprazole Sodium (Protonix Inj) 40 mg IVP DAILY JILL Last Admin: 06/29/18 10:48 Dose: 40 mg Physical Exam - Constitutional Appears: Non-toxic, No Acute Distress, Chronically Ill - Head Exam Head Exam: ATRAUMATIC, NORMOCEPHALIC - Eye Exam Eye Exam: EOMI, PERRL Pupil Exam: NORMAL ACCOMODATION, PERRL - ENT Exam ENT Exam: Mucous Membranes Moist, Normal External Ear Exam, TM's Normal Bilaterally - Neck Exam Neck exam: Positive for: Full Rom, Normal Inspection - Respiratory Exam Respiratory Exam: Clear to Auscultation Bilateral, NORMAL BREATHING PATTERN. absent: Rales, Rhonchi, Wheezes - Cardiovascular Exam Cardiovascular Exam: REGULAR RHYTHM, RRR, +S1, +S2 - GI/Abdominal Exam GI & Abdominal Exam: Hypoactive Bowel Sounds Additional comments: Obese, multiple healed scars. - Extremities Exam Extremities exam: Positive for: full ROM, normal inspection - Neurological Exam Neurological exam: Alert, CN II-XII Intact, Oriented x3 - Skin Skin Exam: Dry, Intact, Normal Color Results - Vital Signs Recent Vital Signs: Last Vital Signs Temp 98.0 F 06/29/18 17:08 Pulse 57 L 06/29/18 17:08 Resp 19 06/29/18 17:08 BP 109/65 06/29/18 17:08 Pulse Ox 96 06/29/18 17:08 - Labs Result Diagrams: 06/29/18 05:30 06/29/18 05:30 Labs: Laboratory Results - last 24 hr 06/28/18 06/28/18 06/28/18 20:45 20:45 20:45 WBC 7.8 RBC 3.75 Hgb 9.9 L Hct 31.3 L MCV 83.5 MCH 26.4 MCHC 31.6 RDW 13.6 Plt Count 280 MPV 9.6 Gran % 70.0 H Lymph % (Auto) 22.3 [place] % (Auto) 6.4 H Eos % (Auto) 1.0 L Baso % (Auto) 0.3 Gran # 5.43 Lymph # (Auto) 1.7 [place] # (Auto) 0.5 Eos # (Auto) 0.1 Baso # (Auto) 0.02 ESR Retic Count PT 12.5 INR 1.09 APTT 30.8 Sodium 140 Potassium 4.1 Chloride 104 Carbon Dioxide 29 Anion Gap 12 BUN 15 Creatinine 1.0 Est GFR ( Amer) > 60 Est GFR (Non-Af Amer) 59 POC Glucose (mg/dL) Random Glucose 94 Hemoglobin A1c Serum Osmolality Calcium 8.9 Phosphorus Magnesium Iron TIBC % Saturation Transferrin Ferritin Total Bilirubin 0.9 AST 161 H D ALT 164 H Alkaline Phosphatase 94 Lactate Dehydrogenase 573 Total Creatine Kinase 103 Troponin I < 0.01 C-Reactive Protein Total Protein 7.2 Albumin 4.0 Globulin 3.2 Albumin/Globulin Ratio 1.3 Triglycerides Cholesterol LDL Cholesterol Direct HDL Cholesterol Amylase 68 Lipase 83 Vitamin B12 Folate Urine Color Urine Appearance Urine pH Ur Specific [place] Urine Protein Urine Glucose (UA) Urine Ketones Urine Blood Urine Nitrate Urine Bilirubin Urine Urobilinogen Ur Leukocyte Esterase Urine RBC Urine WBC Ur Epithelial Cells Urine Bacteria Hepatitis A IgM Ab Hep Bs Antigen Hep B Core IgM Ab Hepatitis C Antibody 06/29/18 06/29/18 06/29/18 00:15 05:30 05:30 WBC 5.7 D RBC 3.64 Hgb 9.5 L Hct 30.6 L MCV 84.1 MCH 26.1 MCHC 31.0 RDW 13.8 Plt Count 235 MPV 9.5 Gran % 63.9 Lymph % (Auto) 26.7 [place] % (Auto) 6.8 H Eos % (Auto) 2.3 Baso % (Auto) 0.3 Gran # 3.66 Lymph # (Auto) 1.5 [place] # (Auto) 0.4 Eos # (Auto) 0.1 Baso # (Auto) 0.02 ESR 20 Retic Count 3.18 H PT INR APTT Sodium 139 Potassium 4.0 Chloride 105 Carbon Dioxide 27 Anion Gap 10 BUN 11 Creatinine 0.9 Est GFR ( Amer) > 60 Est GFR (Non-Af Amer) > 60 POC Glucose (mg/dL) Random Glucose 95 Hemoglobin A1c Serum Osmolality Calcium 8.3 L Phosphorus 4.4 Magnesium 2.0 Iron TIBC % Saturation Transferrin Ferritin 61.2 Total Bilirubin 1.0 AST 112 H D ALT 134 H Alkaline Phosphatase 81 Lactate Dehydrogenase Total Creatine Kinase Troponin I C-Reactive Protein < 5.00 Total Protein 6.3 Albumin 3.5 Globulin 2.8 Albumin/Globulin Ratio 1.2 Triglycerides 139 Cholesterol 86 L LDL Cholesterol Direct 46 HDL Cholesterol 32 Amylase Lipase Vitamin B12 247 Folate 12.7 Urine Color Yellow Urine Appearance Clear Urine pH 6.5 Ur Specific [place] <= 1.005 Urine Protein Trace H Urine Glucose (UA) Negative Urine Ketones Negative Urine Blood Trace-intact H Urine Nitrate Negative Urine Bilirubin Negative Urine Urobilinogen 0.2 Ur Leukocyte Esterase Negative Urine RBC 0 - 2 Urine WBC 1 - 3 Ur Epithelial Cells 1 - 3 Urine Bacteria Rare Hepatitis A IgM Ab Hep Bs Antigen Hep B Core IgM Ab Hepatitis C Antibody 06/29/18 06/29/18 06/29/18 05:30 05:30 05:30 WBC RBC Hgb Hct MCV MCH MCHC RDW Plt Count MPV Gran % Lymph % (Auto) [place] % (Auto) Eos % (Auto) Baso % (Auto) Gran # Lymph # (Auto) [place] # (Auto) Eos # (Auto) Baso # (Auto) ESR Retic Count PT INR APTT Sodium Potassium Chloride Carbon Dioxide Anion Gap BUN Creatinine Est GFR ( Amer) Est GFR (Non-Af Amer) POC Glucose (mg/dL) Random Glucose Hemoglobin A1c 5.4 Serum Osmolality 290 Calcium Phosphorus Magnesium Iron TIBC % Saturation Transferrin Ferritin Total Bilirubin AST ALT Alkaline Phosphatase Lactate Dehydrogenase Total Creatine Kinase Troponin I C-Reactive Protein Total Protein Albumin Globulin Albumin/Globulin Ratio Triglycerides Cholesterol LDL Cholesterol Direct HDL Cholesterol Amylase Lipase Vitamin B12 Folate Urine Color Urine Appearance Urine pH Ur Specific [place] Urine Protein Urine Glucose (UA) Urine Ketones Urine Blood Urine Nitrate Urine Bilirubin Urine Urobilinogen Ur Leukocyte Esterase Urine RBC Urine WBC Ur Epithelial Cells Urine Bacteria Hepatitis A IgM Ab Negative Hep Bs Antigen Negative Hep B Core IgM Ab Negative Hepatitis C Antibody Negative 06/29/18 06/29/18 06/29/18 05:30 05:30 05:50 WBC RBC Hgb Hct MCV MCH MCHC RDW Plt Count MPV Gran % Lymph % (Auto) [place] % (Auto) Eos % (Auto) Baso % (Auto) Gran # Lymph # (Auto) [place] # (Auto) Eos # (Auto) Baso # (Auto) ESR Retic Count PT INR APTT Sodium Potassium Chloride Carbon Dioxide Anion Gap BUN Creatinine Est GFR ( Amer) Est GFR (Non-Af Amer) POC Glucose (mg/dL) 94 Random Glucose Hemoglobin A1c Serum Osmolality Calcium Phosphorus Magnesium Iron 74 TIBC 341 % Saturation 22 Transferrin 242.95 Ferritin Total Bilirubin AST ALT Alkaline Phosphatase Lactate Dehydrogenase Total Creatine Kinase Troponin I C-Reactive Protein Total Protein Albumin Globulin Albumin/Globulin Ratio Triglycerides Cholesterol LDL Cholesterol Direct HDL Cholesterol Amylase Lipase Vitamin B12 Folate Urine Color Urine Appearance Urine pH Ur Specific [place] Urine Protein Urine Glucose (UA) Urine Ketones Urine Blood Urine Nitrate Urine Bilirubin Urine Urobilinogen Ur Leukocyte Esterase Urine RBC Urine WBC Ur Epithelial Cells Urine Bacteria Hepatitis A IgM Ab Hep Bs Antigen Hep B Core IgM Ab Hepatitis C Antibody 06/29/18 06/29/18 06/29/18 07:13 11:36 17:29 WBC RBC Hgb Hct MCV MCH MCHC RDW Plt Count MPV Gran % Lymph % (Auto) [place] % (Auto) Eos % (Auto) Baso % (Auto) Gran # Lymph # (Auto) [place] # (Auto) Eos # (Auto) Baso # (Auto) ESR Retic Count PT INR APTT Sodium Potassium Chloride Carbon Dioxide Anion Gap BUN Creatinine Est GFR ( Amer) Est GFR (Non-Af Amer) POC Glucose (mg/dL) 112 H 127 H 107 Random Glucose Hemoglobin A1c Serum Osmolality Calcium Phosphorus Magnesium Iron TIBC % Saturation Transferrin Ferritin Total Bilirubin AST ALT Alkaline Phosphatase Lactate Dehydrogenase Total Creatine Kinase Troponin I C-Reactive Protein Total Protein Albumin Globulin Albumin/Globulin Ratio Triglycerides Cholesterol LDL Cholesterol Direct HDL Cholesterol Amylase Lipase Vitamin B12 Folate Urine Color Urine Appearance Urine pH Ur Specific [place] Urine Protein Urine Glucose (UA) Urine Ketones Urine Blood Urine Nitrate Urine Bilirubin Urine Urobilinogen Ur Leukocyte Esterase Urine RBC Urine WBC Ur Epithelial Cells Urine Bacteria Hepatitis A IgM Ab Hep Bs Antigen Hep B Core IgM Ab Hepatitis C Antibody Assessment & Plan - Assessment and Plan (Free Text) Assessment: 52 yo [place] female with nausea, vomiting, diarrhea, and abdominal pain. The patient is also found to have transaminitis that is new to her compared to multiple ER and hospitalizations at [facility]. CT showing post surgical changes and mild diverticulosis. She was started on Cipro and Flagyl. Afebrile so far. No leukocytosis. Pancultures on the patient. Can check C. Diff although I think it is unlikely. Can check ESR, C-Reactive Protein, and Procalcitonin if symptoms continue. Supportive care. Can continue Cipro and Flagyl for now. Thank you for allowing me to participate in the care of the patient, we will follow with you.
--- NOTE | 2018-06-29 20:19 | CON ---
DATE: 06/29/2018 REASON FOR CONSULT: I have been asked to see this 52-year-old female with a history of chronic recurrent abdominal pain status post cholecystectomy, status post partial kidney resection, status post hiatal hernia surgery who comes to the hospital with recurrent abdominal pain. The patient states that the pain is associated with several episodes of nausea, vomiting and diarrhea. Her symptoms started approximately 2 days ago. She denies any recent travel, ingestion of unusual foods or recent antibiotic use. The patient states that she had a fever to 100.4. She has had chronic recurrent abdominal pain with multiple ER visits over the last 2 years. She denies any hematemesis, rectal bleeding or melena. PAST MEDICAL HISTORY: As above. Again, she has a history of renal cell CA status post resection, GERD, diabetes mellitus, hyperlipidemia, chronic abdominal pain. PAST SURGICAL HISTORY: Notable for cholecystectomy, partial kidney resection, hiatal hernia surgery. SOCIAL HISTORY: She denies cigarette smoking or alcohol use. FAMILY HISTORY: Noncontributory. REVIEW OF SYSTEMS: A 14-point review of systems is notable for abdominal pain, nausea, vomiting and diarrhea. MEDICATIONS: At home include insulin, Lipitor, tramadol, Glucophage, Diovan, Aldactone, omeprazole. PHYSICAL EXAMINATION: GENERAL: Obese female lying in bed in no acute distress. VITAL SIGNS: Reveal temperature of 97.4, blood pressure 121/82, heart rate 69. HEENT: Reveal sclerae to be white. Conjunctivae pink. NECK: Supple. CHEST: Reveal lungs to be clear. HEART: Reveals regular rate and rhythm. ABDOMEN: Soft. Mild epigastric tenderness. No rebound, no guarding. EXTREMITIES: Show no edema. LABORATORY DATA: Reveal white blood cell count 5.7, hemoglobin 9.5. Chemistries revealed BUN 11, creatinine 0.9, AST 112, ALT 134. CT scan of the abdomen and pelvis reveals a diffuse mural thickening throughout the colon, mild dilatation of the common bile duct, no obvious mass in the pancreas. IMPRESSION: A 52-year-old female with chronic recurrent abdominal pain, nausea, vomiting, diarrhea with nonspecific mural thickening of the colon diffusely, I suspect that the patient has a gastroenteritis. Etiology of the elevated transaminases is unclear although the patient does not have biliary obstruction or any lesions in the liver. RECOMMENDATIONS: 1. Check stool for C and S, O and P, C. diff. 2. I will stop Cipro for now. 3. Advance diet as tolerated. 4. Follow transaminases. Malik Montemayor MD
[2018-06-30] MEDS: Morphine 2 mg/ml ISec IVP SCH ×2 (00:28→05:51)
[2018-06-30] MEDS: Insulin Lispro (humaLOG) LOW Coverage SC SCH ×4 (00:29→17:20)
[2018-06-30] MEDS: metroNIDAZOLE IV 500 mg/100 ml 500 MG/100 ML BAG IVPB SCH ×2 (05:44→14:41)
[2018-06-30 07:12] LABS: BASO # 0.01 K/mm3 (0.0-2.0); BASO % 0.2 % (0.0-3.0); EOS # 0.2 (0.0-0.7); EOS % 2.7 % (1.5-5.0); GRAN # 4.33 (1.4-6.5); GRAN % 73.5 % (50.0-68.0); HEMOGLOBIN 9.5 g/dL (12.0-16.0); LYMPH # 1.1 (1.2-3.4); LYMPH % 18.2 % (22.0-35.0); MEAN CORPUSCULAR HEMOGLOBIN 26.4 pg (25.0-35.0); MEAN PLATELET VOLUME 9.9 fl (7.0-11.0); MONO # 0.3 (0.1-0.6); MONO % 5.4 % (1.0-6.0); RBC 3.6 10^6/uL (3.5-6.1); RED CELL DISTRIBUTION WIDTH 13.8 % (11.5-14.5); WHITE BLOOD COUNT 5.9 10^3/uL (4.5-11.0)
[2018-06-30 07:34] LABS: ALB/GLOB RATIO 1.1 (1.1-1.8); ALBUMIN 3.4 g/dL (3.0-4.8); ALT/SGPT 96 U/L (7-56); AST/SGOT 57 U/L (14-36); BLOOD UREA NITROGEN 7 mg/dL (7-21); CALCIUM 8.3 mg/dL (8.4-10.5); GFR NON-AFRICAN AMERICAN > 60
--- NOTE | 2018-06-30 10:28 | PN ---
DATE: 06/30/2018 SUBJECTIVE: The patient is lying in bed. She still has some intermittent abdominal pain. She complains of lightheadedness and dizziness upon standing up from a lying position, associated with nausea. Apparently, there has been no recent vomiting. She is tolerating clear liquids. PHYSICAL EXAMINATION: VITAL SIGNS: Reveal temperature of 97.5, blood pressure 122/67, heart rate of 58. HEENT: Reveals sclerae to be white. Conjunctivae pink. NECK: Supple. CHEST: Reveals distant breath sounds. HEART: Reveals a regular rate and rhythm. ABDOMEN: Soft. She has multiple large scars including a midline scar and a right upper quadrant scar. There is tenderness right over the midline scar. EXTREMITIES: Show no edema. LABORATORY DATA: Reveals normal electrolytes. Blood sugar of 123, AST 57, ALT 96. CBC reveals white blood cell count 5.9, hemoglobin 9.5, sed rate is 20. IMPRESSION: A 52-year-old female with chronic abdominal pain with nausea, vomiting, diarrhea with CT scan of the abdomen showing nonspecific mural thickening of the colon. Some of her symptoms appear vasovagal as she becomes lightheaded and dizzy upon standing from a lying position associated with nausea. She has not had any further diarrhea. I suspect some of the abdominal pain is abdominal wall pain and she has pain right over her surgical scar in the mid abdomen. There are postsurgical changes of the abdominal wall noted on CT. RECOMMENDATIONS: We will advance to a low-fat, low-residue diet. I will start the patient on Reglan 10 mg IV before meals if diet is tolerated without any further vomiting. The patient can be discharged home. I do not believe the patient needs oral antibiotics. I believe this is a viral gastroenteritis. Malik Montemayor MD
[2018-06-30] MEDS ORDERED: Morphine 2 mg/ml ISec IVP PRN (11:31)
--- NOTE | 2018-06-30 14:57 | CP.PCM.PN ---
Subjective - Date & Time of Evaluation Date of Evaluation: 06/30/18 Time of Evaluation: 13:15 - Subjective Subjective: Infectious Disease Follow Up: June 30, 2018 52 year old Yemeni speaking female w/ a PMH of HLD, DM, GERD, Renal CA s/p partial resection, presented to [facility] [place] ED On 06/29 w/ a CC of RUQ/Epigastric Pain x1 day. She reported that the pain is sharp non radiating worse w/eating. Denies any change in quality/ characteristic of pain with movement. Extensive hospitalization history at [facility]. She claims low grade fevers up to 100.4 She claims diarrhea and vomiting. History of E. Coli UTI from prior ER visits to [facility]. Urinalysis does not appear indicative for UTI. Afebrile so far during this hospitalization. Objective - Vital Signs/Intake and Output Vital Signs (last 24 hours): Temp Pulse Resp BP Pulse Ox 97.5 F L 58 L 20 122/67 100 06/30/18 06:00 06/30/18 06:00 06/30/18 06:00 06/30/18 06:00 06/30/18 06:00 Intake and Output: 06/30/18 06/30/18 06:59 18:59 Intake Total 1520 Balance 1520 - Medications Medications: Current Medications Heparin Sodium (Porcine) (Heparin) 5,000 units SC Q12 JILL; Protocol Last Admin: 06/30/18 09:17 Dose: 5,000 units Metronidazole (Flagyl) 500 mg in 100 mls @ 100 mls/hr IVPB Q8 JILL; Protocol Last Admin: 06/30/18 14:41 Dose: 100 mls/hr Dextrose/Sodium Chloride (Dextrose 5%/0.9% Ns 1000 Ml) 1,000 mls @ 100 mls/hr IV .Q10H JILL Last Admin: 06/29/18 21:31 Dose: 100 mls/hr Insulin Human Lispro (Humalog Low) 0 units SC Q6 JILL; Protocol Last Admin: 06/30/18 11:54 Dose: Not Given Metoclopramide HCl (Reglan) 10 mg IVP ACHS JILL Last Admin: 06/30/18 12:00 Dose: 10 mg Morphine Sulfate (Morphine) 2 mg IVP Q6 PRN PRN Reason: Pain, moderate (4-7) Ondansetron HCl (Zofran Inj) 4 mg IVP Q6H PRN PRN Reason: Nausea/Vomiting Last Admin: 06/29/18 21:33 Dose: 4 mg Pantoprazole Sodium (Protonix Inj) 40 mg IVP DAILY JILL Last Admin: 06/30/18 09:18 Dose: 40 mg - Labs Labs: 06/30/18 06:20 06/30/18 06:20 PT 12.5 SECONDS (9.4-12.5) 06/28/18 20:45 INR 1.09 06/28/18 20:45 APTT 30.8 Seconds (25.1-36.5) 06/28/18 20:45 - Constitutional Appears: Non-toxic, No Acute Distress, Chronically Ill - Head Exam Head Exam: ATRAUMATIC, NORMOCEPHALIC - Eye Exam Eye Exam: EOMI, PERRL Pupil Exam: NORMAL ACCOMODATION, PERRL - ENT Exam ENT Exam: Mucous Membranes Moist, Normal External Ear Exam, TM's Normal Bilaterally - Neck Exam Neck Exam: Full ROM, Normal Inspection - Respiratory Exam Respiratory Exam: Clear to Ausculation Bilateral, NORMAL BREATHING PATTERN. absent: Rales, Rhonchi, Wheezes - Cardiovascular Exam Cardiovascular Exam: REGULAR RHYTHM, RRR, +S1, +S2 - GI/Abdominal Exam GI & Abdominal Exam: Soft, Normal Bowel Sounds. absent: Distended, Tenderness Additional comments: obese, multiple healed scar areas. - Extremities Exam Extremities Exam: Full ROM, Normal Inspection - Neurological Exam Neurological Exam: Alert, Awake, CN II-XII Intact, Oriented x3 - Skin Skin Exam: Dry, Intact, Normal Color Assessment and Plan - Assessment and Plan (Free Text) Assessment: 52 yo [place]i female with nausea, vomiting, diarrhea, and abdominal pain. The patient is also found to have transaminitis that is new to her compared to multiple ER and hospitalizations at [facility]. CT showing post surgical changes and mild diverticulosis. She was started on Cipro and Flagyl. Afebrile so far. No leukocytosis. Pancultures on the patient. Can check C. Diff although I think it is unlikely. Can check ESR, C-Reactive Protein, and Procalcitonin if symptoms continue. Supportive care. Transaminitis appears to be improving. Can continue on Flagyl for now. I believe the majority of the patient's problems and symptoms are chronic in nature. Thank you for allowing me to participate in the care of the patient, we will follow with you.
--- NOTE | 2018-06-30 15:33 | CP.PCM.PN ---
<Esvin Mcneal - Last Filed: 06/30/18 18:37> Subjective - Date & Time of Evaluation Date of Evaluation: 06/30/18 Time of Evaluation: 08:15 - Subjective Subjective: PGY-1 Medicine Progress Note for Dr. Mar Patient seen and examined at bedside this AM in no acute distress. No acute overnight events reported. Patient continues to endorse generalized abdominal pain, although physical exam is unremarkable. Per nurse, patient does not attempt to eat and states she is too nauseous although there has not been any episodes of vomiting reported. Patient was encouraged to eat, will continue to monitor. Objective - Vital Signs/Intake and Output Vital Signs (last 24 hours): Temp Pulse Resp BP Pulse Ox 97.5 F L 58 L 20 122/67 100 06/30/18 06:00 06/30/18 06:00 06/30/18 06:00 06/30/18 06:00 06/30/18 06:00 Intake and Output: 06/30/18 06/30/18 06:59 18:59 Intake Total 1520 Balance 1520 - Medications Medications: Current Medications Heparin Sodium (Porcine) (Heparin) 5,000 units SC Q12 JILL; Protocol Last Admin: 06/30/18 09:17 Dose: 5,000 units Metronidazole (Flagyl) 500 mg in 100 mls @ 100 mls/hr IVPB Q8 JILL; Protocol Last Admin: 06/30/18 14:41 Dose: 100 mls/hr Dextrose/Sodium Chloride (Dextrose 5%/0.9% Ns 1000 Ml) 1,000 mls @ 100 mls/hr IV .Q10H JILL Last Admin: 06/29/18 21:31 Dose: 100 mls/hr Insulin Human Lispro (Humalog Low) 0 units SC Q6 JILL; Protocol Last Admin: 06/30/18 11:54 Dose: Not Given Metoclopramide HCl (Reglan) 10 mg IVP ACHS JILL Last Admin: 06/30/18 12:00 Dose: 10 mg Morphine Sulfate (Morphine) 2 mg IVP Q6 PRN PRN Reason: Pain, moderate (4-7) Ondansetron HCl (Zofran Inj) 4 mg IVP Q6H PRN PRN Reason: Nausea/Vomiting Last Admin: 06/29/18 21:33 Dose: 4 mg Pantoprazole Sodium (Protonix Inj) 40 mg IVP DAILY JILL Last Admin: 06/30/18 09:18 Dose: 40 mg - Labs Labs: 06/30/18 06:20 06/30/18 06:20 PT 12.5 SECONDS (9.4-12.5) 06/28/18 20:45 INR 1.09 06/28/18 20:45 APTT 30.8 Seconds (25.1-36.5) 06/28/18 20:45 - Constitutional Appears: Non-toxic, No Acute Distress - Head Exam Head Exam: ATRAUMATIC, NORMAL INSPECTION, NORMOCEPHALIC - Eye Exam Eye Exam: EOMI, Normal appearance - ENT Exam ENT Exam: Mucous Membranes Moist, Normal Exam - Neck Exam Neck Exam: Full ROM, Normal Inspection - Respiratory Exam Respiratory Exam: Clear to Ausculation Bilateral, NORMAL BREATHING PATTERN. absent: Rales, Rhonchi, Wheezes, Respiratory Distress, Stridor - Cardiovascular Exam Cardiovascular Exam: REGULAR RHYTHM, +S1, +S2 - GI/Abdominal Exam GI & Abdominal Exam: Soft, Normal Bowel Sounds. absent: Distended, Firm, Guarding, Tenderness - Extremities Exam Extremities Exam: Full ROM, Normal Capillary Refill, Normal Inspection - Back Exam Back Exam: NORMAL INSPECTION - Neurological Exam Neurological Exam: Alert, Awake, Oriented x3 - Psychiatric Exam Psychiatric exam: Depressed - Skin Skin Exam: Dry, Intact, Normal Color, Warm Assessment and Plan - Assessment and Plan (Free Text) Assessment: 52 yo [place] female with nausea, vomiting, diarrhea, and abdominal pain, likely viral gastroenteritis per GI. Plan: Abdominal Pain with associated nausea/vomiting -pt endorses generalized abdominal pain, PE unremarkable -vomiting resolved -amylase/lipase WNL CT abdomen/pelvis: extensive thickening of anterior abdominal wall w/ roughly 2cm R sided hernia containing omental fat. Findings likely postsrugical in nature. Small hiatal hernia, colonic diverticulosis -GI recs (Dr. Montemayor) appreciated -cipro stopped for now -pt advanced to low-fat, low-residue diet -started on Reglan 10 mg IV before meals if diet is tolerated w/o any further vomiting -patient cleared for discharge home, does not need PO Abx -likely viral gastroenteritis -ID recs (Dr. Briceno) appreciated -continue on flagyl for now -pt's problems likely chronic in nature Transaminitis -AST 161 -> 57 -ALT 164 -> 96 -continue to monitor Normocytic Anemia -Hb/Hct stable -iron studies wnl -ESR wnl DM -D5NS -ISS LOW Q6H -Accucheck Q6H GERD Protonix 40 IVP QD PPx, Diet, Disposition DVT ppx: heparin 5000 q8 GI ppx: protonix 40 daily Diet: altered GI/hepatic diet Disposition: patient medically cleared for discharge per GI and ID. Pt encouraged to eat dinner, continue to monitor for signs of vomiting. If pt tolerates meal, likely d/c tomorrow. Case discussed with Dr. Zaid Mcneal DO, PGY-1 <Timothy Mar - Last Filed: 07/01/18 14:04> Objective - Vital Signs/Intake and Output Vital Signs (last 24 hours): Temp Pulse Resp BP Pulse Ox 98.1 F 53 L 19 111/71 95 06/30/18 17:40 06/30/18 17:40 06/30/18 17:40 06/30/18 17:40 06/30/18 17:40 - Labs Labs: 06/30/18 06:20 06/30/18 06:20 PT 12.5 SECONDS (9.4-12.5) 06/28/18 20:45 INR 1.09 06/28/18 20:45 APTT 30.8 Seconds (25.1-36.5) 06/28/18 20:45 Attending/Attestation - Attestation I have personally seen and examined this patient.: Yes I have fully participated in the care of the patient.: Yes I have reviewed all pertinent clinical information, including history, physical exam and plan: Yes Notes (Text): 06/30/18 see attending note in d/c summary
[2018-06-30 17:40] VITALS: BP 111/71; PULSE 53; RESP 19; TEMP 98.1; O2SAT 95
--- NOTE | 2018-06-30 18:42 | CP.PCM.DIS ---
<DelbertkingaEsvin - Last Filed: 06/30/18 23:14> Provider - Provider Date of Admission: 06/29/18 00:22 Attending physician: Timothy Mar MD Primary care physician: Ladi Salazar MD Time Spent in preparation of Discharge (in minutes): 40 Hospital Course - Lab Results Lab Results: Micro Results 06/29/18 00:15 Urine,Clean Catch Urine Culture - Final 10-50,000 CFU/ML. MULTIPLE SPECIES. PROBABLE CONTAMINATION. 06/28/18 20:45 Blood-Venous Blood Culture - Preliminary NO GROWTH AFTER 24 HOURS 06/28/18 20:30 Blood-Venous Blood Culture - Preliminary NO GROWTH AFTER 24 HOURS Most Recent Lab Values WBC 5.9 10^3/uL (4.5-11.0) 06/30/18 06:20 RBC 3.60 10^6/uL (3.5-6.1) 06/30/18 06:20 Hgb 9.5 g/dL (12.0-16.0) L 06/30/18 06:20 Hct 30.6 % (36.0-48.0) L 06/30/18 06:20 MCV 85.0 fl (80.0-105.0) 06/30/18 06:20 MCH 26.4 pg (25.0-35.0) 06/30/18 06:20 MCHC 31.0 g/dl (31.0-37.0) 06/30/18 06:20 RDW 13.8 % (11.5-14.5) 06/30/18 06:20 Plt Count 220 10^3/uL (120.0-450.0) 06/30/18 06:20 MPV 9.9 fl (7.0-11.0) 06/30/18 06:20 Gran % 73.5 % (50.0-68.0) H 06/30/18 06:20 Lymph % (Auto) 18.2 % (22.0-35.0) L 06/30/18 06:20 [place] % (Auto) 5.4 % (1.0-6.0) 06/30/18 06:20 Eos % (Auto) 2.7 % (1.5-5.0) 06/30/18 06:20 Baso % (Auto) 0.2 % (0.0-3.0) 06/30/18 06:20 Gran # 4.33 (1.4-6.5) 06/30/18 06:20 Lymph # (Auto) 1.1 (1.2-3.4) L 06/30/18 06:20 [place] # (Auto) 0.3 (0.1-0.6) 06/30/18 06:20 Eos # (Auto) 0.2 (0.0-0.7) 06/30/18 06:20 Baso # (Auto) 0.01 K/mm3 (0.0-2.0) 06/30/18 06:20 ESR 20 mm/hr (0.0-20.0) 06/29/18 05:30 Retic Count 3.18 % (0.5-1.5) H 06/29/18 05:30 PT 12.5 SECONDS (9.4-12.5) 06/28/18 20:45 INR 1.09 06/28/18 20:45 APTT 30.8 Seconds (25.1-36.5) 06/28/18 20:45 Sodium 140 mmol/L (132-148) 06/30/18 06:20 Potassium 4.1 mmol/L (3.6-5.0) 06/30/18 06:20 Chloride 107 mmol/L (98-107) 06/30/18 06:20 Carbon Dioxide 27 mmol/L (21-33) 06/30/18 06:20 Anion Gap 10 (10-20) 06/30/18 06:20 BUN 7 mg/dL (7-21) 06/30/18 06:20 Creatinine 0.9 mg/dl (0.7-1.2) 06/30/18 06:20 Est GFR ( Amer) > 60 06/30/18 06:20 Est GFR (Non-Af Amer) > 60 06/30/18 06:20 POC Glucose (mg/dL) 100 mg/dL (65-110) 06/30/18 17:13 Random Glucose 123 mg/dL (70-110) H 06/30/18 06:20 Hemoglobin A1c 5.4 % (4.2-6.5) 06/29/18 05:30 Serum Osmolality 290 mosm/kg (272-300) 06/29/18 05:30 Calcium 8.3 mg/dL (8.4-10.5) L 06/30/18 06:20 Phosphorus 4.4 mg/dL (2.5-4.5) 06/29/18 05:30 Magnesium 2.0 mg/dL (1.7-2.2) 06/29/18 05:30 Iron 74 ug/dL (45-180) 06/29/18 05:30 TIBC 341 ug/dL (265-497) 06/29/18 05:30 % Saturation 22 % (20-55) 06/29/18 05:30 Transferrin 242.95 mg/dL (206-381) 06/29/18 05:30 Ferritin 61.2 ng/mL 06/29/18 05:30 Total Bilirubin 0.8 mg/dL (0.2-1.3) 06/30/18 06:20 AST 57 U/L (14-36) H D 06/30/18 06:20 ALT 96 U/L (7-56) H 06/30/18 06:20 Alkaline Phosphatase 72 U/L (38-126) 06/30/18 06:20 Lactate Dehydrogenase 573 U/L (333-699) 06/28/18 20:45 Total Creatine Kinase 103 U/L (35-230) 06/28/18 20:45 Troponin I < 0.01 ng/mL 06/28/18 20:45 C-Reactive Protein < 5.00 mg/L (0.0-9.9) 06/29/18 05:30 Total Protein 6.4 g/dL (5.8-8.3) 06/30/18 06:20 Albumin 3.4 g/dL (3.0-4.8) 06/30/18 06:20 Globulin 3.0 gm/dL 06/30/18 06:20 Albumin/Globulin Ratio 1.1 (1.1-1.8) 06/30/18 06:20 Triglycerides 139 mg/dL (35-160) 06/29/18 05:30 Cholesterol 86 mg/dL (130-200) L 06/29/18 05:30 LDL Cholesterol Direct 46 mg/dL (0-129) 06/29/18 05:30 HDL Cholesterol 32 mg/dL (29-60) 06/29/18 05:30 Amylase 68 U/L (35-125) 06/28/18 20:45 Lipase 83 U/L (23-300) 06/28/18 20:45 Vitamin B12 247 pg/mL (239-931) 06/29/18 05:30 Folate 12.7 ng/mL 06/29/18 05:30 Urine Color Yellow (YELLOW) 06/29/18 00:15 Urine Appearance Clear (CLEAR) 06/29/18 00:15 Urine pH 6.5 (4.7-8.0) 06/29/18 00:15 Ur Specific [place] <= 1.005 (1.005-1.035) 06/29/18 00:15 Urine Protein Trace mg/dL (<30 mg/dL) H 06/29/18 00:15 Urine Glucose (UA) Negative mg/dL (NEGATIVE) 06/29/18 00:15 Urine Ketones Negative mg/dL (NEGATIVE) 06/29/18 00:15 Urine Blood Trace-intact (NEGATIVE) H 06/29/18 00:15 Urine Nitrate Negative (NEGATIVE) 06/29/18 00:15 Urine Bilirubin Negative (NEGATIVE) 06/29/18 00:15 Urine Urobilinogen 0.2 E.U./dL (<1 E.U./dL) 06/29/18 00:15 Ur Leukocyte Esterase Negative [place]/uL (NEGATIVE) 06/29/18 00:15 Urine RBC 0 - 2 /hpf (0-2) 06/29/18 00:15 Urine WBC 1 - 3 /hpf (0-6) 06/29/18 00:15 Ur Epithelial Cells 1 - 3 /hpf (0-5) 06/29/18 00:15 Urine Bacteria Rare (NEG) 06/29/18 00:15 Hepatitis A IgM Ab Negative (NEGATIVE) 06/29/18 05:30 Hep Bs Antigen Negative (NEGATIVE) 06/29/18 05:30 Hep B Core IgM Ab Negative (NEGATIVE) 06/29/18 05:30 Hepatitis C Antibody Negative (NEGATIVE) 06/29/18 05:30 - Hospital Course Hospital Course: Upon Admission Ms. Naranjo is a 52 year old [place] speaking female with a past medical history of hyperlipidemia, diabetes mellitus, GERD, right renal carcinoma status post partial resection, who presented to the ED on 06/29 with a chief complaint of right upper quadrant/epigastric pain x for 1 day. She reported that the pain is sharp, non-radiating, and worse with eating. She denied any change in quality/characteristic of the pain with movement. She also reported associated fevers/chills with a Tmax of 100.4 F, 4 episodes of non-bloody, non-bilious vomiting, and multiple episodes of diarrhea for 2 days. She denies any recent illnesses, sick contacts at home, recent travel, or recent antibiotic use. During hospital course, patient was started on antibiotics for possible enteritis. Blood cultures drawn were negative. Amylase and lipase were both negative.CT of the abdomen/pelvis showed colonic diverticulosis, nonspecific mural thickening of the colon, partial right nephrectomy, extensive thickening of the anterior abdominal wall with a 2cm right sided hernia containing omental fat. Findings were likely post-surgical in nature. Abdominal ultrasound showed fibro-fatty infiltration of the liver. GI and Infectious Disease were consulted in the care of this patient for recommendations. Per GI recommendations, the abdominal pain is likely chronic in nature, possibly due to multiple abdominal wall surgery and thickening of anterior abdominal wall. The patient was placed on a low-fat, low-residue diet and started on Reglan 20 mg IV before meals to assess if diet was tolerated with no further vomiting. The patient was also started on ciprofloxacin and flagyl, per ID recommendations, with discontinuation of ciprofloxacin after 24 hours per GI recommendations. The patient's vomiting symptoms resolved. She continued to endorse generalized abdominal pain, however physical exam was unremarkable. The patient was encouraged to eat and her plan of care was discussed in detail. It was explained to the patient that given her apparent chronic findings, she would be medically stable for discharge once she was able to better tolerate PO intake. The patient understood these plans and was amenable. Patient was afebrile during course of admission, with no leukocytosis noted and stable vital signs. Disposition was established to likely discharge patient home within the next 24 hours once she was better able to tolerate PO food. Nurse paged however to notify that patient eloped from the hospital without signing any AMA paperwork. The following is a summary of hospital course. For full detail, please refer to patient's EMR. - Date & Time of H&P Date of H&P: 06/30/18 Time of H&P: 18:38 Discharge Exam - Head Exam Head Exam: ATRAUMATIC, NORMAL INSPECTION, NORMOCEPHALIC - Eye Exam Eye Exam: EOMI, Normal appearance Pupil Exam: NORMAL ACCOMODATION - ENT Exam ENT Exam: Mucous Membranes Moist, Normal Exam - Neck Exam Neck exam: Full Rom, Normal Inspection - Respiratory Exam Respiratory Exam: Clear to PA & Lateral, NORMAL BREATHING PATTERN, UNREMARKABLE. absent: Respiratory Distress - Cardiovascular Exam Cardiovascular Exam: REGULAR RHYTHM, +S1, +S2 - GI/Abdominal Exam GI & Abdominal Exam: Normal Bowel Sounds, Soft, Unremarkable. absent: Distended, Firm, Guarding, Tenderness - Extremities Exam Extremities exam: normal capillary refill, normal inspection, pedal pulses present - Back Exam Back exam: NORMAL INSPECTION - Neurological Exam Neurological exam: Alert, Normal Gait, Oriented x3 - Psychiatric Exam Psychiatric exam: Normal Affect, Normal Mood - Skin Skin Exam: Dry, Intact, Normal Color, Warm Discharge Plan - Follow Up Plan Condition: FAIR Disposition: AGAINST MEDICAL ADVICE Referrals: Ladi Salazar MD [Primary Care Provider] - <Timothy Mar - Last Filed: 07/01/18 14:09> Provider - Provider Date of Admission: 06/29/18 00:22 Attending physician: Timothy Mar MD Primary care physician: Ladi Salazar MD Hospital Course - Lab Results Lab Results: Micro Results 06/28/18 20:45 Blood-Venous Blood Culture - Preliminary NO GROWTH AFTER 48 HOURS 06/28/18 20:30 Blood-Venous Blood Culture - Preliminary NO GROWTH AFTER 48 HOURS 06/29/18 00:15 Urine,Clean Catch Urine Culture - Final 10-50,000 CFU/ML. MULTIPLE SPECIES. PROBABLE CONTAMINATION. Most Recent Lab Values WBC 5.9 10^3/uL (4.5-11.0) 06/30/18 06:20 RBC 3.60 10^6/uL (3.5-6.1) 06/30/18 06:20 Hgb 9.5 g/dL (12.0-16.0) L 06/30/18 06:20 Hct 30.6 % (36.0-48.0) L 06/30/18 06:20 MCV 85.0 fl (80.0-105.0) 06/30/18 06:20 MCH 26.4 pg (25.0-35.0) 06/30/18 06:20 MCHC 31.0 g/dl (31.0-37.0) 06/30/18 06:20 RDW 13.8 % (11.5-14.5) 06/30/18 06:20 Plt Count 220 10^3/uL (120.0-450.0) 06/30/18 06:20 MPV 9.9 fl (7.0-11.0) 06/30/18 06:20 Gran % 73.5 % (50.0-68.0) H 06/30/18 06:20 Lymph % (Auto) 18.2 % (22.0-35.0) L 06/30/18 06:20 Irion % (Auto) 5.4 % (1.0-6.0) 06/30/18 06:20 Eos % (Auto) 2.7 % (1.5-5.0) 06/30/18 06:20 Baso % (Auto) 0.2 % (0.0-3.0) 06/30/18 06:20 Gran # 4.33 (1.4-6.5) 06/30/18 06:20 Lymph # (Auto) 1.1 (1.2-3.4) L 06/30/18 06:20 [place] # (Auto) 0.3 (0.1-0.6) 06/30/18 06:20 Eos # (Auto) 0.2 (0.0-0.7) 06/30/18 06:20 Baso # (Auto) 0.01 K/mm3 (0.0-2.0) 06/30/18 06:20 ESR 20 mm/hr (0.0-20.0) 06/29/18 05:30 Retic Count 3.18 % (0.5-1.5) H 06/29/18 05:30 PT 12.5 SECONDS (9.4-12.5) 06/28/18 20:45 INR 1.09 06/28/18 20:45 APTT 30.8 Seconds (25.1-36.5) 06/28/18 20:45 Sodium 140 mmol/L (132-148) 06/30/18 06:20 Potassium 4.1 mmol/L (3.6-5.0) 06/30/18 06:20 Chloride 107 mmol/L (98-107) 06/30/18 06:20 Carbon Dioxide 27 mmol/L (21-33) 06/30/18 06:20 Anion Gap 10 (10-20) 06/30/18 06:20 BUN 7 mg/dL (7-21) 06/30/18 06:20 Creatinine 0.9 mg/dl (0.7-1.2) 06/30/18 06:20 Est GFR ( Amer) > 60 06/30/18 06:20 Est GFR (Non-Af Amer) > 60 06/30/18 06:20 POC Glucose (mg/dL) 100 mg/dL (65-110) 06/30/18 17:13 Random Glucose 123 mg/dL (70-110) H 06/30/18 06:20 Hemoglobin A1c 5.4 % (4.2-6.5) 06/29/18 05:30 Serum Osmolality 290 mosm/kg (272-300) 06/29/18 05:30 Calcium 8.3 mg/dL (8.4-10.5) L 06/30/18 06:20 Phosphorus 4.4 mg/dL (2.5-4.5) 06/29/18 05:30 Magnesium 2.0 mg/dL (1.7-2.2) 06/29/18 05:30 Iron 74 ug/dL (45-180) 06/29/18 05:30 TIBC 341 ug/dL (265-497) 06/29/18 05:30 % Saturation 22 % (20-55) 06/29/18 05:30 Transferrin 242.95 mg/dL (206-381) 06/29/18 05:30 Ferritin 61.2 ng/mL 06/29/18 05:30 Total Bilirubin 0.8 mg/dL (0.2-1.3) 06/30/18 06:20 AST 57 U/L (14-36) H D 06/30/18 06:20 ALT 96 U/L (7-56) H 06/30/18 06:20 Alkaline Phosphatase 72 U/L (38-126) 06/30/18 06:20 Lactate Dehydrogenase 573 U/L (333-699) 06/28/18 20:45 Total Creatine Kinase 103 U/L (35-230) 06/28/18 20:45 Troponin I < 0.01 ng/mL 06/28/18 20:45 C-Reactive Protein < 5.00 mg/L (0.0-9.9) 06/29/18 05:30 Total Protein 6.4 g/dL (5.8-8.3) 06/30/18 06:20 Albumin 3.4 g/dL (3.0-4.8) 06/30/18 06:20 Globulin 3.0 gm/dL 06/30/18 06:20 Albumin/Globulin Ratio 1.1 (1.1-1.8) 06/30/18 06:20 Triglycerides 139 mg/dL (35-160) 06/29/18 05:30 Cholesterol 86 mg/dL (130-200) L 06/29/18 05:30 LDL Cholesterol Direct 46 mg/dL (0-129) 06/29/18 05:30 HDL Cholesterol 32 mg/dL (29-60) 06/29/18 05:30 Amylase 68 U/L (35-125) 06/28/18 20:45 Lipase 83 U/L (23-300) 06/28/18 20:45 Vitamin B12 247 pg/mL (239-931) 06/29/18 05:30 Folate 12.7 ng/mL 06/29/18 05:30 Urine Color Yellow (YELLOW) 06/29/18 00:15 Urine Appearance Clear (CLEAR) 06/29/18 00:15 Urine pH 6.5 (4.7-8.0) 06/29/18 00:15 Ur Specific [place] <= 1.005 (1.005-1.035) 06/29/18 00:15 Urine Protein Trace mg/dL (<30 mg/dL) H 06/29/18 00:15 Urine Glucose (UA) Negative mg/dL (NEGATIVE) 06/29/18 00:15 Urine Ketones Negative mg/dL (NEGATIVE) 06/29/18 00:15 Urine Blood Trace-intact (NEGATIVE) H 06/29/18 00:15 Urine Nitrate Negative (NEGATIVE) 06/29/18 00:15 Urine Bilirubin Negative (NEGATIVE) 06/29/18 00:15 Urine Urobilinogen 0.2 E.U./dL (<1 E.U./dL) 06/29/18 00:15 Ur Leukocyte Esterase Negative [place]/uL (NEGATIVE) 06/29/18 00:15 Urine RBC 0 - 2 /hpf (0-2) 06/29/18 00:15 Urine WBC 1 - 3 /hpf (0-6) 06/29/18 00:15 Ur Epithelial Cells 1 - 3 /hpf (0-5) 06/29/18 00:15 Urine Bacteria Rare (NEG) 06/29/18 00:15 Hepatitis A IgM Ab Negative (NEGATIVE) 06/29/18 05:30 Hep Bs Antigen Negative (NEGATIVE) 06/29/18 05:30 Hep B Core IgM Ab Negative (NEGATIVE) 06/29/18 05:30 Hepatitis C Antibody Negative (NEGATIVE) 06/29/18 05:30 Attending/Attestation - Attestation I have personally seen and examined this patient.: Yes I have fully participated in the care of the patient.: Yes I have reviewed all pertinent clinical information, including history, physical exam and plan: Yes Notes (Text): 06/30/18 52 year old female with past medical history of diabetes, dyslipidemia and right renal cell carcinoma s/p partial resection who presented with abdominal pain. Found to have possible enteritis and mildly elevated LFTs which improved. She was on flagyl and being followed by GI and ID. She endorsed episodes of vomiting and was started on reglan today which some improvement of symptoms. Plan was for discharge if patient was tolerating her diet however patient later eloped in the evening. Timothy Mar MD Hospitalist.
== END 2018-06-30 18:47 | disposition left against medical advice (07) | DRG 814 ==
LOC: ED 19:17 → ERH 23:58 → EDBD 06-29 00:22 → OBSVTOIN 06-29 00:22 → 3RNO 06-29 01:30
PROVIDERS: ADMIT Hospitalist; ATTEND Internal Medicine
DX: A08.4 Viral intestinal infection, unspecified (principal); K21.9 Gastro-esophageal reflux disease without esophagitis; E78.5 Hyperlipidemia, unspecified; I10 Essential (primary) hypertension; K57.30 Diverticulosis of large intestine without perforation or abscess without bleeding; E10.9 Type 1 diabetes mellitus without complications; K43.9 Ventral hernia without obstruction or gangrene; G89.29 Other chronic pain; K76.0 Fatty (change of) liver, not elsewhere classified; Z85.528 Personal history of other malignant neoplasm of kidney; Z90.5 Acquired absence of kidney; Z87.440 Personal history of urinary (tract) infections; Z90.49 Acquired absence of other specified parts of digestive tract

== ENCOUNTER 2018-06-30 18:37 | Emergency (ER) | payer MEDICAID ==
--- NOTE | 2018-06-30 19:50 | ED PDOC ---
Arrival/HPI - General Chief Complaint: Psychiatric Evaluation Time Seen by Provider: 06/30/18 19:21 Historian: Patient - History of Present Illness Narrative History of Present Illness (Text): 06/30/18 19:50 A 55 year old female, whose past medical history includes hx of renal tumor, presents to the emergency department complaining of stress since 2 days ago. Patient reports experiencing abdominal pain, mild, but is more concerned about her daughter who has disappeared recently. She notes feeling down and depressed and stressed since this occurred. She denies any OD or fall or attempts to hurt herself over the two days. No HI or SI however at this time. Patient denies any fever, chills, shortness of breath, chest pain, diarrhea, nausea, vomiting, urinary symptoms, back pain, neck pain, headache, dizziness, or any other complaints. Past Medical History - Cardiac Hx Hypertension: Yes - Pulmonary Hx Respiratory Disorders: No - Neurological Hx Neurological Disorder: No - HEENT Hx HEENT Disorder: No - Renal Hx Renal Disorder: No - Endocrine/Metabolic Hx Diabetes Mellitus Type 2: Yes - Hematological/Oncological Hx Blood Disorders: No - Integumentary Hx Dermatological Disorder: No - Musculoskeletal/Rheumatological Hx Musculoskeletal Disorders: No - Gastrointestinal Hx Gastrointestinal Disorders: No - Genitourinary/Gynecological Hx Genitourinary Disorders: No - Psychiatric Hx Psychophysiologic Disorder: Yes Hx Anxiety: Yes Hx Depression: Yes Hx Substance Use: No - Surgical History Other/Comment: kidney tumor. and unknown abdominal surgery - Anesthesia Hx Anesthesia: Yes Hx Anesthesia Reactions: No Hx Malignant Hyperthermia: No Family/Social History Family/Social History: Unknown Family HX Smoking Status: Never Smoked Hx Alcohol Use: No Hx Substance Use: No Allergies/Home Meds Allergies/Adverse Reactions: Allergies No Known Allergies Allergy (Verified 06/30/18 19:18) Home Medications: Home Meds Medication Instructions Recorded Confirmed Unobtainable 06/30/18 06/30/18 Review of Systems - Review of Systems Constitutional: Normal. absent: Fatigue, Weight Change Eyes: absent: Vision Changes, Photophobia ENT: absent: Hearing Changes, Tinnitus, TMJ Pain, Sore Throat, Rhinorrhea, Epis taxis Respiratory: absent: SOB, Cough, Sputum Cardiovascular: absent: Chest Pain, Palpitations, Edema, Syncope Gastrointestinal: Abdominal Pain. absent: Stool Changes, Constipation, Diarrhea, Vomiting, Appetite Changes, Hematochezia, Hematemesis, Food Intolerance Genitourinary Female: absent: Dysuria, Frequency, Vaginal Bleeding, Vaginal Discharge Musculoskeletal: absent: Arthralgias Skin: absent: Rash Neurological: absent: Headache, Dizziness Endocrine: absent: Diaphoresis, Polyuria Hemo/Lymphatic: absent: Adenopathy, Easy Bleeding Psychiatric: Depression. absent: Anxiety, Suicidal Ideation Physical Exam Vital Signs Reviewed: Yes Vital Signs Temp Pulse Resp BP Pulse Ox 06/30/18 19:17 98.1 F 62 16 169/93 H 99 Temperature: Afebrile Blood Pressure: Hypertensive Pulse: Regular Respiratory Rate: Normal Appearance: Positive for: Well-Appearing, Non-Toxic, Comfortable Pain Distress: None Mental Status: Positive for: Alert and Oriented X 3 - Systems Exam Head: Present: Atraumatic, Normocephalic Pupils: Present: PERRL. No: Sluggish Extroacular Muscles: Present: EOMI. No: Gaze Palsy Conjunctiva: Present: Normal. No: Injected Ears: Present: Normal, NORMAL TM, Normal Canal. No: Erythema, TM Bulging Mouth: Present: Moist Mucous Membranes Pharnyx: Present: Normal. No: ERYTHEMA, EXUDATE Neck: Present: Normal Range of Motion. No: Meningeal Signs, MIDLINE TENDERNESS, Paraspinal Tenderness, Lymphadenopathy Respiratory/Chest: Present: Clear to Auscultation, Good Air Exchange. No: Respiratory Distress Cardiovascular: Present: Regular Rate and Rhythm, Normal S1, S2. No: Murmurs, Irregular Rhythm Abdomen: Present: Tenderness (epigastric), Normal Bowel Sounds. No: Distention, Peritoneal Signs, Rebound, Guarding Rectal: No: Occult Blood, Rectal Tenderness Back: Present: Normal Inspection. No: CVA Tenderness, Midline Tenderness Upper Extremity: Present: Normal Inspection, Normal ROM, NORMAL PULSES, Neurovascularly Intact, Capillary Refill < 2s. No: Cyanosis, Edema Lower Extremity: Present: Normal Inspection, NORMAL PULSES, Normal ROM. No: Edema, CALF TENDERNESS, Tenderness, Swelling Neurological: Present: GCS=15, CN II-XII Intact, Speech Normal Skin: Present: Warm, Dry, Normal Color. No: Rashes Psychiatric: Present: Alert, Oriented x 3, Normal Insight, Depressed Mood. No: Suicidal Ideation, Homicidal Ideation Medical Decision Making ED Course and Treatment: 06/30/18 19:50 Impression: 55 year old female presenting to the emergency department complaining of stress. Stressed over recent daughter disappearance. Normal neuro exam w/ out meningeal signs or trauma. No SI or HI or plan. Epigastric abd pain noted: chronic, mildly ttp. No CP or SOB. Pending CT. Plan: -- Reassess and disposition Progress Notes: 06/30/18 21:[address] Elizabeth: pendings labs, ct scan and PES re-eval, final dispo - Scribe Statement The provider has reviewed the documentation as recorded by the Scribotilia Currie All medical record entries made by the Scribe were at my direction and personally dictated by me. I have reviewed the chart and agree that the record accurately reflects my personal performance of the history, physical exam, medical decision making, and the department course for this patient. I have also personally directed, reviewed, and agree with the discharge instructions and disposition.\ Disposition/Present on Arrival - Present on Arrival Any Indicators Present on Arrival: No History of DVT/PE: No History of Uncontrolled Diabetes: No Urinary Catheter: No History of Decub. Ulcer: No History Surgical Site Infection Following: None - Disposition Have Diagnosis and Disposition been Completed?: No Diagnosis: Depression Disposition Time: 21:07 Patient Problems: Current Active Problems Problem Status Onset Depression Acute Condition: GOOD Referrals: Ladi Salazar MD [Primary Care Provider] - Follow up with primary Forms: [employer] (Croatian)
--- NOTE | 2018-06-30 21:42 | ED PDOC ---
Physical Exam Vital Signs Temp Pulse Resp BP Pulse Ox 06/30/18 19:17 98.1 F 62 16 169/93 H 99 Medical Decision Making ED Course and Treatment: 06/30/18 21:00 Case endorsed to me by Dr. Martin Harper, pending CT, labs, reassessment, and disposition. Pt, whose past medical history includes renal tumor, presented complaining of stress, depression, and mild abdominal pain. 07/01/18 02:07 CT Head reviewed, shows: Normal size of the ventricles and extra-axial spaces for the patient's age. Normal white matter tracts of the supratentorial brain. Normal basal ganglia and thalami. Normal brainstem. Normal cerebellum. There is no demonstrated extra-axial, intraparenchymal, or intraventricular hemorrhage. There are no findings of an acute ischemic infarction. Normal calvarium. There is no demonstrated fracture. Normal soft tissue structures. Normal visualized paranasal sinuses. IMPRESSION: Normal unenhanced CT scan of the brain. Electronically signed on Jul 01, 2018 1:57:08 AM EDT by: Balaji Amaya M.D., Certified by IRMA, MSK, Neuroradiology 07/01/18 02:14 CT Abdomen and Pelvis reviewed: Bilateral basilar subsegmental atelectatic pulmonary changes. Moderate sliding hiatal hernia. Normal unenhanced liver. Surgically absent gallbladder and nondilated extr ahepatic biliary system. Normal unenhanced spleen. Normal pancreas. Normal bilateral adrenal glands. Normal size of the right kidney. There is no right renal mass. There are no right renal calculi. There is no right hydronephrosis. Normal visualized right ureter. Normal size of the left kidney. There is no left renal mass. There are no left renal calculi. There is no left hydronephrosis. Normal visualized left ureter. Normal visualized stomach. Normal small intestine. Normal colon. The appendix is visualized and appears normal. There is no demonstrated peritoneal fluid. Normal abdominal aorta. Normal inferior vena cava. Normal retroperitoneum. Normal urinary bladder. There is no pelvic mass lesion or lymphadenopathy. There is no pelvic fluid. Surgical changes of anterior abdominal wall. Moderate chronic changes of Scheuermann's disease. Multifocal scattered foci of subcutaneous emphysema from recent subcutaneous injection. IMPRESSION: No CT evidence of acute pathology. Chronic findings as detailed above. Electronically signed on Jul 01, 2018 2:07:43 AM EDT by: Balaji Amaya M.D., Certified by ABR, K, Neuroradiology 07/01/18 04:44 Pt seen and evaluated by PES screener, who discussed case with psychiatrist. Patient stable for discharge with outpt f/u at [facility]. Pt agreeable with plan. - Lab Interpretations I have reviewed the lab results: Yes - RAD Interpretation Radiology Orders: 06/30/18 20:15 HEAD W/CONTRAST [CT] Stat 06/30/18 20:16 ABDOMEN & PELVIS [ABD & PELVIS W/O PO OR IV CONT] [CT] Stat CHEST PORTABLE [RAD] Stat Regional Driver: Radiologist Disposition/Present on Arrival - Present on Arrival Any Indicators Present on Arrival: No History of DVT/PE: No History of Uncontrolled Diabetes: No Urinary Catheter: No History of Decub. Ulcer: No History Surgical Site Infection Following: None - Disposition Have Diagnosis and Disposition been Completed?: Yes Diagnosis: Depression Disposition: HOME/ ROUTINE Disposition Time: 05:02 Patient Problems: Current Active Problems Problem Status Onset Depression Acute Condition: GOOD Discharge Instructions (ExitCare): Depression, Adult (DC) Referrals: Ladi Salazar MD [Primary Care Provider] - Follow up with primary [facility] [[facility]] - Follow up with primary Forms: [employer] (Upper Sorbian)
[2018-06-30 22:33] LABS: BASO # 0.02 K/mm3 (0.0-2.0); BASO % 0.2 % (0.0-3.0); EOS % 0.5 % (1.5-5.0); GRAN # 7.23 (1.4-6.5); GRAN % 81.5 % (50.0-68.0); HEMOGLOBIN 10.1 g/dL (12.0-16.0); LYMPH # 1.1 (1.2-3.4); LYMPH % 12.3 % (22.0-35.0); MEAN CELL VOLUME 84.4 fl (80.0-105.0); MEAN CORPUSCULAR HEMOGLOBIN 26.6 pg (25.0-35.0); MEAN CORPUSCULAR HGB CONC 31.6 g/dl (31.0-37.0); MEAN PLATELET VOLUME 9.6 fl (7.0-11.0); MONO # 0.5 (0.1-0.6); MONO % 5.5 % (1.0-6.0); RBC 3.79 10^6/uL (3.5-6.1); RED CELL DISTRIBUTION WIDTH 13.9 % (11.5-14.5); WHITE BLOOD COUNT 8.9 10^3/uL (4.5-11.0)
[2018-06-30 22:42] LABS: ACETAMINOPHEN < 10.0 ug/ml (10.0-20.0); SALICYLATE < 1 mg/dL (2.0-20.0)
[2018-06-30 22:43] LABS: ALB/GLOB RATIO 1.2 (1.1-1.8); ALT/SGPT 86 U/L (7-56); AST/SGOT 37 U/L (14-36); BLOOD UREA NITROGEN 5 mg/dL (7-21); CALCIUM 8.8 mg/dL (8.4-10.5); GFR NON-AFRICAN AMERICAN > 60
[2018-06-30 22:44] LABS: URINE APPEARANCE CLEAR (CLEAR); URINE BILIRUBIN NEGATIVE (NEGATIVE); URINE BLOOD TRACE-INTACT (NEGATIVE); URINE COLOR YELLOW (YELLOW); URINE GLUCOSE (UA) NEGATIVE (NEGATIVE); URINE LEUKOCYTE ESTERASE SMALL Leu/uL (NEGATIVE); URINE PROTEIN 30 mg/dL (<30 mg/dL); URINE UROBILINOGEN 0.2 E.U./dL (<1 E.U./dL)
[2018-06-30 22:51] LABS: URINE BACTERIA TRACE (NEG); URINE EPITHELIAL CELLS 0 - 2 /hpf (0-5); URINE RBC 0 - 2 /hpf (0-2)
[2018-06-30 23:08] LABS: BARBITURATES, UR NEGATIVE (NEGATIVE); BENZODIAZEPINES, UR NEGATIVE (NEGATIVE); PHENCYCLIDINE, UR NEGATIVE (NEGATIVE)
--- NOTE | 2018-07-01 05:54 | RAD ---
Date of service: 06/30/2018 HISTORY: stressed COMPARISON: No prior. FINDINGS: LUNGS: The lungs are well inflated and clear. PLEURA: No pleural effusions or pneumothorax. CARDIOVASCULAR: The heart is normal in size. No aortic atherosclerotic calcification present. OSSEOUS STRUCTURES: Within normal limits for the patient's age. VISUALIZED UPPER ABDOMEN: Normal. OTHER FINDINGS: None. IMPRESSION: No active pulmonary disease.
[2018-07-01 06:02] VITALS: RESP 16; O2SAT 98
[2018-07-01 06:08] VITALS: BP 119/72; PULSE 88; TEMP 98
[2018-07-01 06:30] LABS: OPIATES, UR POSITIVE (NEGATIVE)
--- NOTE | 2018-07-01 09:08 | CT ---
Date of service: 07/01/2018 PROCEDURE: CT HEAD WITHOUT CONTRAST HISTORY: Headache COMPARISON: None available. TECHNIQUE: Axial computed tomography images were obtained through the head/brain without intravenous contrast. Radiation dose: Total exam DLP = 847.31 mGy-cm. This CT exam was performed using one or more of the following dose reduction techniques: Automated exposure control, adjustment of the mA and/or kV according to patient size, and/or use of iterative reconstruction technique. FINDINGS: HEMORRHAGE: No intracranial hemorrhage. BRAIN: There are mild chronic microangiopathic changes. There is no mass, mass effect or abnormal extra-axial fluid collection. There is no territorial infarction. The midline sagittal structures are normal. VENTRICLES: There is mild age-related global parenchymal volume loss and proportionate enlargement of the ventricles and cortical sulci. CALVARIUM: The skull base and calvarium are normal. PARANASAL SINUSES: Predominantly clear. MASTOID AIR CELLS: Predominantly clear. OTHER FINDINGS: None. IMPRESSION: No acute intracranial abnormality. A preliminary report was provided by [employer].
--- NOTE | 2018-07-01 09:36 | CT ---
Date of service: 07/01/2018 PROCEDURE: CT Abdomen and Pelvis without intravenous contrast HISTORY: chronic pain COMPARISON: None. TECHNIQUE: CT scan of the abdomen and pelvis was performed without administration of intravenous contrast. Oral contrast was not administered. Coronal and sagittal reformatted images were obtained. . Radiation dose: Total exam DLP = 927.82 mGy-cm. This CT exam was performed using one or more of the following dose reduction techniques: Automated exposure control, adjustment of the mA and/or kV according to patient size, and/or use of iterative reconstruction technique. FINDINGS: LOWER THORAX: The visualized lungs are clear. LIVER: Normal in size. No intrahepatic ductal dilatation. GALLBLADDER AND BILE DUCTS: No calcified gallstones. No biliary dilatation PANCREAS: Normal in size. No ductal dilatation. SPLEEN: Normal in size. ADRENALS: Normal in size. No discrete nodule. KIDNEYS AND URETERS: Normal in size without nephrolithiasis. No hydronephrosis. VASCULATURE: No aortic aneurysm. BOWEL: The small bowel loops are normal in caliber. The colon is normal in size. No bowel dilatation or wall thickening. No bowel obstruction. APPENDIX: Normal appendix. PERITONEUM: No free fluid. No free air. LYMPH NODES: No enlarged lymph nodes. BLADDER: Well distended and grossly normal in appearance. REPRODUCTIVE: The uterus is normal in size BONES: No acute fracture. Multilevel degenerative changes. OTHER FINDINGS: There is moderate thickening of the rectus muscle which is tethered the to the anterior abdominal wall no evidence for fluid collection. IMPRESSION: No acute abdominal or pelvic abnormality. A preliminary report was provided by [employer].
--- NOTE | 2018-07-01 10:39 | CARD ---
APPROVED REPORT Date of service: 06/30/2018 EKG Measurement Heart [id number] <Conclusion> Normal sinus rhythm Normal ECG
== END 2018-07-01 06:11 | disposition home or self-care (01) ==
LOC: ED 18:37 → MERGE 18:37 → ED 07-01 06:11
DX: F32.9 Major depressive disorder, single episode, unspecified (principal); I10 Essential (primary) hypertension; F41.9 Anxiety disorder, unspecified; Z85.528 Personal history of other malignant neoplasm of kidney

== ENCOUNTER 2018-07-01 19:14 | Emergency (ER) | payer MEDICAID ==
--- NOTE | 2018-07-01 19:47 | ED PDOC ---
Addendum entered and electronically signed by Jeanne Knox PA-C 07/02/18 17:06: Addendum Addendum: 07/02/18 17:03 Abdominal Obstructive Series [read by Patricia Robles MD] 07/01/2018 HISTORY: abdominal pain COMPARISON: None available. FINDINGS: BOWEL: There are multiple small air-fluid levels in the abdomen. No free intra peritoneal air. BONES: Normal. OTHER FINDINGS: Surgical clips in the right upper quadrant are related to prior cholecystectomy. IMPRESSION: Small air-fluid levels in the abdomen could be related to diarrhea however developing/partial small bowel obstruction cannot be excluded. No evidence of free intraperitoneal air. Spoke with pt and discussed results of Abdominal Xray, advised pt to come back for repeat CT scan with IV contrast. Pt amenable to new plan of care, will return to ER [facility] to be evaluated. Pt states she continues to be in pain and has developed vomiting. Original Note: Arrival/HPI - General Chief Complaint: Abdominal Pain Time Seen by Provider: 07/01/18 19:38 Historian: Patient - History of Present Illness Narrative History of Present Illness (Text): 07/02/18 19:45 55 y/o female with PMH of renal tumor, gastric ulcers, HTN, anxiety, DM, appendectomy, and cholecystectomy presents to the emergency department complaining of dysuria and abdominal pain x five days. Abdominal pain is epig astric, burning, and worse with eating, has been present for several months but has worsened this week. Patient was seen here yesterday with a similar complaint and had a normal work up to include a CT scan of the abdomen and pelvis which showed no acute process, discharged at 2:30am this morning without prescriptions. The pain has not changed since yesterday. Patient has not had an endoscopy for 10 years and has no current GI doctor. She has not taken any medication for pain. Complaining of associated symptoms of loss of appetite and one episode of dark colored diarrhea today with constipation prior. Patient passing gas normally. Denies fevers, chills, vomiting, hematuria, lightheadedness, chest pain, palpitations, shortness of breath, back pain, vaginal bleeding, vaginal discharge, pelvic pain, rash. Time/Duration: > week Symptom Onset: Gradual Symptom Course: Unchanged Quality: Burning Activities at Onset: Eating Past Medical History - Provider Review Nursing Documentation Reviewed: Yes - Cardiac Hx Cardiac Disorders: Yes Hx Hypertension: Yes - Pulmonary Hx Respiratory Disorders: No - Neurological Hx Neurological Disorder: No - HEENT Hx HEENT Disorder: No - Renal Hx Renal Disorder: Yes Other/Comment: renal tumor - Endocrine/Metabolic Hx Diabetes Mellitus Type 2: Yes - Hematological/Oncological Hx Blood Disorders: No - Integumentary Hx Dermatological Disorder: No - Musculoskeletal/Rheumatological Hx Musculoskeletal Disorders: No - Gastrointestinal Hx Gastrointestinal Disorders: Yes Hx Gastritis: Yes Hx Gastroesophageal Reflux: Yes Hx Gastrointestinal Ulcer: Yes Other/Comment: SMALL BOWEL OBSTRUCTION - Genitourinary/Gynecological Hx Genitourinary Disorders: No - Psychiatric Hx Psychophysiologic Disorder: Yes Hx Anxiety: Yes Hx Depression: Yes Hx Substance Use: No - Surgical History Hx Appendectomy: Yes Hx Cholecystectomy: Yes Other/Comment: kidney tumor. HERNIA REPAIR - Anesthesia Hx Anesthesia: Yes Hx Anesthesia Reactions: No Hx Malignant Hyperthermia: No Family/Social History - Physician Review Nursing Documentation Reviewed: Yes Family/Social History: No Known Family HX Smoking Status: Never Smoked Hx Alcohol Use: No Hx Substance Use: No Allergies/Home Meds Allergies/Adverse Reactions: Allergies No Known Allergies Allergy (Verified 07/01/18 19:32) Review of Systems - Physician Review All systems were reviewed & negative as marked: Yes - Review of Systems Constitutional: Normal. absent: Fevers Eyes: Normal. absent: Vision Changes ENT: Normal Respiratory: Normal. absent: SOB, Cough Cardiovascular: Normal. absent: Chest Pain, Palpitations, Syncope Gastrointestinal: Abdominal Pain, Stool Changes, Constipation, Diarrhea, Appetite Changes. absent: Nausea, Vomiting, Hematochezia, Hematemesis, Anorexia, Food Intolerance Genitourinary Female: Dysuria, Frequency. absent: Hematuria, Vaginal Bleeding, Vaginal Discharge Musculoskeletal: Normal Skin: Normal Neurological: Normal Psychiatric: Anxiety Physical Exam Vital Signs Reviewed: Yes Vital Signs Temp Pulse Resp BP Pulse Ox 07/01/18 19:42 99.1 F 65 17 148/87 95 Temperature: Afebrile Blood Pressure: Normal Pulse: Regular Respiratory Rate: Normal Appearance: Positive for: Well-Appearing, Non-Toxic, Comfortable Pain Distress: None Mental Status: Positive for: Alert and Oriented X 3 - Systems Exam Head: Present: Atraumatic, Normocephalic Pupils: Present: PERRL Extroacular Muscles: Present: EOMI Conjunctiva: Present: Normal Mouth: Present: Moist Mucous Membranes Neck: Present: Normal Range of Motion Respiratory/Chest: Present: Clear to Auscultation, Good Air Exchange. No: Respiratory Distress, Accessory Muscle Use Cardiovascular: Present: Regular Rate and Rhythm, Normal S1, S2. No: Murmurs Abdomen: Present: Tenderness (mild to epigastric area), Normal Bowel Sounds (all 4 quadrants normoactive), Scars (PSH appendectomy, cholecystectomy). No: Distention, Peritoneal Signs, Rebound, Guarding Rectal: Present: Normal Rectal Tone, Other (stool brown, guiac negative). No: Occult Blood, Rectal Tenderness, Gross Blood, Melena, Hemorrhoids, Fissures, Nodule/Mass/Lesions Back: Present: Normal Inspection. No: CVA Tenderness Upper Extremity: Present: Normal Inspection, Normal ROM, NORMAL PULSES, Neurovascularly Intact. No: Cyanosis, Edema, Tenderness, Swelling, Deformity Lower Extremity: Present: Normal Inspection, NORMAL PULSES, Normal ROM, Tenderness, Swelling. No: Edema, Deformity Neurological: Present: GCS=15, CN II-XII Intact, Speech Normal, Motor Func Grossly Intact, Normal Sensory Function, Normal Cerebellar Funct, Gait Normal (steady) Skin: Present: Warm, Dry, Normal Color. No: Rashes Psychiatric: Present: Alert, Oriented x 3, Normal Insight, Normal Concentration, Anxious Medical Decision Making ED Course and Treatment: 07/02/18 19:45 Initial Plan: * CBC, CMP, Lipase * AXR * UA, culture * IVF * Protonix CBC: hgb 10.0, will do rectal exam rectal exam brown stool, guiac negative will d/c with iron supplement prescription CMP: wnl UA: positive for blood, leuk esterase, ketones, bilirubin, and protein IV fluids given for dehydration will d/c with antibiotic for UTI AXR: read by me and Dr. Lopez as constipation will d/c with Miralax Pt reports decreased pain after protonix. Will d/c with instructions to followup with GI and PMD/clinic. Plan of care discussed with pt, who agrees and understands. Pt able to verbalize back discharge instructions in layman's terms. Impression: Reflux, Anemia, UTI Plan: * Macrobid * Omeprazole, Pepcid * Miralax * Iron pills * GI followup * Clinic followup * Return for new/worsening symptoms - Lab Interpretations Narrative Lab Interpretation (Text): 07/02/18 04:18 07/01/18 21:00 07/01/18 21:00 Lab Results 07/01/18 21:00: Sodium 140, Potassium 3.5 L, Chloride 105, Carbon Dioxide 28, Anion Gap 12, BUN 7, Creatinine 1.0, Est GFR ( Amer) > 60, Est GFR (Non- Af Amer) 58, Random Glucose 93, Calcium 9.1, Total Bilirubin 0.8, AST 37 H, ALT 71 H, Alkaline Phosphatase 84, Total Protein 7.3, Albumin 4.1, Globulin 3.3, Albumin/Globulin Ratio 1.2, Lipase 110 07/01/18 21:00: WBC 8.6, RBC 3.74, Hgb 10.0 L, Hct 31.5 L, MCV 84.2, MCH 26.7, MCHC 31.7, RDW 14.1, Plt Count 271, MPV 9.8, Gran % 70.4 H, Lymph % (Auto) 19.3 L, [place] % (Auto) 9.1 H, Eos % (Auto) 1.0 L, Baso % (Auto) 0.2, Gran # 6.06, Lymph # (Auto) 1.7, [place] # (Auto) 0.8 H, Eos # (Auto) 0.1, Baso # (Auto) 0.02 07/01/18 19:45: Urine Color Dark yellow, Urine Appearance Slight-cloudy, Urine pH 6.0, Ur Specific [place] >= 1.030, Urine Protein >=300 H, Urine Glucose (UA) Negative, Urine Ketones 15 H, Urine Blood Trace-lysed H, Urine Nitrate Negative, Urine Bilirubin Moderate H, Urine Urobilinogen 1.0 H, Ur Leukocyte Esterase Trace H, Urine RBC 1 - 3, Urine WBC 5 - 10, Ur Epithelial Cells 6 - 8, Calcium Oxalate Crystal Few, Urine Bacteria Trace I have reviewed the lab results: Yes - RAD Interpretation [employer] Superintendent: ED Physician Disposition/Present on Arrival - Present on Arrival Any Indicators Present on Arrival: No History of DVT/PE: No History of Uncontrolled Diabetes: No Urinary Catheter: No History of Decub. Ulcer: No History Surgical Site Infection Following: None - Disposition Have Diagnosis and Disposition been Completed?: Yes Diagnosis: Gastritis, UTI (urinary tract infection), Anemia Disposition: HOME/ ROUTINE Disposition Time: 23:00 Condition: IMPROVED Discharge Instructions (ExitCare): Urinary Tract Infections in Adults, Gastritis Additional Instructions: Take 1 pill macrobid every 12 hours x 7 days Take 1 pill ferrous sulfate daily Take 1 pill omeprazole daily Dissolve 1 cap miralax in 8 ounces of water daily until bowel movement Take 1 pill famotidine every 12 hours as needed Followup with GI within 2 days Return to ER for new/worsening symptoms Prescriptions: Famotidine [Pepcid] 20 mg PO Q12H PRN #30 tab PRN Reason: reflux Ferrous Sulfate [Slow Release Iron] 142 mg PO DAILY #30 tablet.er Nitrofurantoin Macrocrystals [Macrobid] 100 mg PO Q12H #14 cap Omeprazole 20 mg PO DAILY #30 tablet. Polyethylene Glycol 3350 [Miralax] 17 gm PO DAILY PRN #1 bottle PRN Reason: Constipation Referrals: Nicanor Lanier MD [Staff Provider] - Follow up with primary Javon Cruz MD [Staff Provider] - Follow up with primary Katelin Arana MD [Medical Doctor] - Follow up with primary Forms: [employer] (Belizean)
[2018-07-01 20:03] VITALS: TEMP 99.1
[2018-07-01] MEDS ORDERED: Sodium Chloride 0.9% 1,000 ML IV STA (20:29)
[2018-07-01 21:03] LABS: URINE BILIRUBIN MODERATE (NEGATIVE); URINE BLOOD TRACE-LYSED (NEGATIVE); URINE GLUCOSE (UA) NEGATIVE (NEGATIVE); URINE LEUKOCYTE ESTERASE TRACE Leu/uL (NEGATIVE); URINE PROTEIN >=300 mg/dL (<30 mg/dL)
[2018-07-01 21:04] LABS: URINE APPEARANCE SLIGHT-CLOUDY (CLEAR); URINE COLOR DARK YELLOW (YELLOW)
[2018-07-01 21:13] LABS: URINE CALCIUM OXALATE CRYSTALS FEW /hpf
[2018-07-01 21:14] LABS: URINE BACTERIA TRACE (NEG)
[2018-07-01 21:19] LABS: BASO # 0.02 K/mm3 (0.0-2.0); BASO % 0.2 % (0.0-3.0); EOS # 0.1 (0.0-0.7); GRAN # 6.06 (1.4-6.5); GRAN % 70.4 % (50.0-68.0); LYMPH # 1.7 (1.2-3.4); LYMPH % 19.3 % (22.0-35.0); MEAN CELL VOLUME 84.2 fl (80.0-105.0); MEAN CORPUSCULAR HEMOGLOBIN 26.7 pg (25.0-35.0); MEAN CORPUSCULAR HGB CONC 31.7 g/dl (31.0-37.0); MEAN PLATELET VOLUME 9.8 fl (7.0-11.0); MONO # 0.8 (0.1-0.6); MONO % 9.1 % (1.0-6.0); RBC 3.74 10^6/uL (3.5-6.1); RED CELL DISTRIBUTION WIDTH 14.1 % (11.5-14.5); WHITE BLOOD COUNT 8.6 10^3/uL (4.5-11.0)
[2018-07-01 21:42] LABS: ALB/GLOB RATIO 1.2 (1.1-1.8); ALBUMIN 4.1 g/dL (3.0-4.8); ALT/SGPT 71 U/L (7-56); AST/SGOT 37 U/L (14-36); BLOOD UREA NITROGEN 7 mg/dL (7-21); CALCIUM 9.1 mg/dL (8.4-10.5); GFR NON-AFRICAN AMERICAN 58; LIPASE 110 U/L (23-300)
[2018-07-01 23:12] VITALS: BP 144/85; PULSE 66; RESP 17; O2SAT 98
--- NOTE | 2018-07-02 10:20 | RAD ---
Date of service: 07/01/2018 HISTORY: abdominal pain COMPARISON: None available. FINDINGS: BOWEL: There are multiple small air-fluid levels in the abdomen. No free intraperitoneal air. BONES: Normal. OTHER FINDINGS: Surgical clips in the right upper quadrant are related to prior cholecystectomy. IMPRESSION: Small air-fluid levels in the abdomen could be related to diarrhea however developing/partial small bowel obstruction cannot be excluded. No evidence of free intraperitoneal air.
== END 2018-07-01 23:12 | disposition home or self-care (01) ==
LOC: MERGE 19:14 → ED 19:14
DX: K29.70 Gastritis, unspecified, without bleeding (principal); N39.0 Urinary tract infection, site not specified; D64.9 Anemia, unspecified; I10 Essential (primary) hypertension; E11.9 Type 2 diabetes mellitus without complications; Z90.49 Acquired absence of other specified parts of digestive tract
CPT/HCPCS: 74019; 80053; 81001; 83690; 85025; 87086; 96374; 99284; C9113; J7030

== ENCOUNTER 2018-07-02 19:13 | Inpatient (IN) | payer MEDICAID ==
--- NOTE | 2018-07-02 19:58 | ED PDOC ---
Arrival/HPI - General Chief Complaint: Abnormal Labs Time Seen by Provider: 07/02/18 19:16 - History of Present Illness Narrative History of Present Illness (Text): 07/03/18 02:44 55 y/o female with PMH of PUD, DM, HTN, anxiety, renal tumor, SBO, presents to the ED per my request for repeat CT scan after an updated read of her abdominal X-ray from 07/01 as a possible early partial bowel obstruction by radiologist, Dr. Pillai. Pt was seen on 06/30 and 07/01 for similar complaints, with negative workups other than a Hgb of approx. 10 with normal MCV. She continues to complain of dysuria with worsening epigastric and RUQ pain. She was unable to fill the prescriptions given to her at discharge from the ER last night. Pt states she is unable to tolerate PO intake today and has not had a solid bowel movement in 7 days. Denies fever, chills, hematochezia, hematemesis, back pain, hematuria, pelvic pain, vaginal bleeding, vaginal discharge, chest pain, palpitations, SOB, weakness, numbness, paresthesias. Past Medical History - Provider Review Nursing Documentation Reviewed: Yes - Infectious Disease Hx of Infectious Diseases: None - Cardiac Hx Cardiac Disorders: Yes Hx Hypertension: Yes - Pulmonary Hx Respiratory Disorders: No - Neurological Hx Neurological Disorder: No - HEENT Hx HEENT Disorder: No - Renal Hx Renal Disorder: Yes Other/Comment: renal tumor - Endocrine/Metabolic Hx Diabetes Mellitus Type 2: Yes - Hematological/Oncological Hx Blood Disorders: No - Integumentary Hx Dermatological Disorder: No - Musculoskeletal/Rheumatological Hx Musculoskeletal Disorders: No - Gastrointestinal Hx Gastrointestinal Disorders: No - Genitourinary/Gynecological Hx Genitourinary Disorders: No - Psychiatric Hx Psychophysiologic Disorder: Yes Hx Anxiety: Yes Hx Depression: Yes Hx Substance Use: No - Surgical History Other/Comment: kidney tumor. and unknown abdominal surgery - Anesthesia Hx Anesthesia: Yes Hx Anesthesia Reactions: No Hx Malignant Hyperthermia: No Family/Social History - Physician Review Nursing Documentation Reviewed: Yes Family/Social History: No Known Family HX Smoking Status: Never Smoked Hx Alcohol Use: No Hx Substance Use: No Allergies/Home Meds Allergies/Adverse Reactions: Allergies No Known Allergies Allergy (Verified 07/02/18 19:52) Review of Systems - Physician Review All systems were reviewed & negative as marked: Yes - Review of Systems Constitutional: Fatigue. absent: Fevers Eyes: Normal. absent: Vision Changes ENT: Normal Respiratory: Normal. absent: SOB, Cough Cardiovascular: absent: Chest Pain, Palpitations, Syncope Gastrointestinal: Abdominal Pain, Stool Changes, Constipation, Diarrhea, Nausea, Vomiting, Appetite Changes (decreased), Food Intolerance. absent: Hematochezia, Hematemesis Genitourinary Female: Dysuria. absent: Frequency, Hematuria, Vaginal Bleeding, Vaginal Discharge Musculoskeletal: Normal. absent: Back Pain, Neck Pain Skin: Normal. absent: Rash, Skin Lesions, Laceration, Abscess, Cellulitis Neurological: Normal. absent: Headache, Dizziness, Focal Weakness, Gait Changes, Speech Changes, Facial Droop Endocrine: Normal Hemo/Lymphatic: Normal Psychiatric: Anxiety Physical Exam Vital Signs Reviewed: Yes Vital Signs Temp Pulse Resp BP Pulse Ox 07/02/18 19:51 98.5 F 65 17 137/82 97 Temperature: Afebrile Blood Pressure: Normal Pulse: Regular Respiratory Rate: Normal Appearance: Positive for: Well-Appearing, Non-Toxic, Comfortable Pain Distress: None Mental Status: Positive for: Alert and Oriented X 3 - Systems Exam Head: Present: Atraumatic, Normocephalic Pupils: Present: PERRL Extroacular Muscles: Present: EOMI Conjunctiva: Present: Normal Mouth: Present: Moist Mucous Membranes Neck: Present: Normal Range of Motion Respiratory/Chest: Present: Clear to Auscultation, Good Air Exchange. No: Respiratory Distress, Accessory Muscle Use Cardiovascular: Present: Regular Rate and Rhythm, Normal S1, S2. No: Murmurs Abdomen: Present: Tenderness (RUQ, epigastric), Normal Bowel Sounds, Scars (PSH cholecystectomy, appendectomy, hernia repair ). No: Distention, Peritoneal Signs, Rebound, Guarding, Rovsing's Sign Present Rectal: Present: Other (normal last night, guiac negative) Back: Present: Normal Inspection. No: CVA Tenderness, Paraspinal Tenderness Upper Extremity: Present: Normal Inspection, Normal ROM, NORMAL PULSES. No: Cyanosis, Edema, Tenderness, Swelling Lower Extremity: Present: Normal Inspection, NORMAL PULSES, Normal ROM. No: Edema, Tenderness, Swelling Neurological: Present: GCS=15, CN II-XII Intact, Speech Normal, Motor Func Grossly Intact, Normal Sensory Function, Normal Cerebellar Funct, Gait Normal Skin: Present: Warm, Dry, Normal Color. No: Rashes Psychiatric: Present: Alert, Oriented x 3, Normal Insight, Normal Concentration, Anxious Medical Decision Making ED Course and Treatment: 07/02/18 20:00 Initial Plan: * repeat labs (CBC, CMP) * IVF * Zofran * Morphine * CT Abd/Pelvis with PO/IV Contrast * RUQ US 21:30 Pt refusing to drink PO contrast. Will scan with IV contrast only. Pt reports decreased nausea and abdominal pain 23:38 CT negative for acute pathology; see report US negative for acute pathology; see report 12:00 Will admit to hospitalist for recurrent abdominal pain, normocytic anemia, and for GI consult to include endoscopy. * Will give 1g IV Rocephin for UTI Spoke with Dr. Olsen who accepts pt for inpatient admission to med-surg. Pt updated with new plan of care. Pt understands and agrees with reasoning to admit to hospital. - Lab Interpretations I have reviewed the lab results: Yes - RAD Interpretation Narrative RAD Interpretations (Text): 07/03/18 00:05 EXAM: CT Abdomen with IV contrast CLINICAL HISTORY: R/O BOWEL OBSTRUCTION - ABDOMINAL PAIN - N/V TECHNIQUE: Axial computed tomography images of the abdomen and pelvis with oral and intravenous contrast. 906.18 mGy-cm CONTRAST: With; 33OZ OMNI MIX & VISI 320 100 ml COMPARISON: Comparison is made to study performed July 01, 2018. FINDINGS: LUNG BASES: Again mild atelectatic changes are seen at both lung bases. LIVER: Unremarkable. GALLBLADDER AND BILE DUCTS: Again following status post cholecystectomy. Mildly prominent common bile duct likely physiologic. PANCREAS: Unremarkable. SPLEEN: Unremarkable. ADRENAL GLANDS: Unremarkable. KIDNEYS, URETERS, AND BLADDER: The kidneys appear within normal limits. There is no hydronephrosis or hydroureter. No urinary calculi are seen. STOMACH AND BOWEL: Sigmoid colon diverticulosis without diverticulitis. Small hiatal hernia is again noted. Slightly prominent mid to distal small bowel loops with angulation likely related to adhesion. APPENDIX: No inflammatory changes are seen in the right lower quadrant suggestive of appendicitis. PERITONEUM: No free fluid. No free air. LYMPH NODES: No lymphadenopathy is evident. VASCULATURE: No evidence of abdominal aortic aneurysm. BONES: No aggressive appearing osseous lesion. No acute osseous pathology evident. MISCELLANEOUS: Anterior abdominal wall postsurgical change is likely chronic in nature. No CT evidence of obstruction is noted. No other significant change. IMPRESSION: 1. Anterior abdominal wall postsurgical change is likely chronic in nature. 2. No CT evidence of obstruction is noted. 3. Again following status post cholecystectomy. 4. Sigmoid colon diverticulosis without diverticulitis. 5. Mildly prominent common bile duct likely physiologic. 6. Again mild atelectatic changes are seen at both lung bases. 7. Small hiatal hernia is again noted. 8. No other significant change. 9. No inflammatory changes are seen in the right lower quadrant suggestive of appendicitis. Electronically signed on Jul 02, 2018 11:38:21 PM EDT by: Da Morocho M.D., THIERRY Certified By [employer]BR & [employer] Fellowship Trained MRI and CT Specialist 07/03/18 00:05 EXAM: US Abdomen, Right Upper Quadrant. CLINICAL HISTORY: ABDOMINAL PAIN TECHNIQUE: Right upper quadrant sonography performed with image documentation. COMPARISON: None provided. FINDINGS: LIVER: Within normal limits in size and echogenicity. No mass. GALLBLADDER: The gallbladder is surgically absent. COMMON BILE DUCT: No dilation. 7 mm. PANCREAS: The distal pancreas is obscured by bowel gas. The visualized portion of the pancreas appears within normal limits. RIGHT KIDNEY: Unremarkable. 9.4 cm. Normal renal contours. No renal mass or calculus. No hydronephrosis. IMPRESSION: No acute pathology. Electronically signed on Jul 02, 2018 11:47:08 PM EDT by: Da Morocho M.D., THIERRY Certified By ABR & CBC[employer] Fellowship Trained MRI and CT Specialist Rn Concurrent Review: Radiologist Disposition/Present on Arrival - Present on Arrival Any Indicators Present on Arrival: No History of DVT/PE: No History of Uncontrolled Diabetes: No Urinary Catheter: No History of Decub. Ulcer: No History Surgical Site Infection Following: None - Disposition Have Diagnosis and Disposition been Completed?: Yes Diagnosis: Normocytic anemia, Abdominal pain, UTI (urinary tract infection) Disposition: HOSPITALIZED Disposition Time: 12:00 Patient Plan: Admission Patient Problems: Current Active Problems Problem Status Onset Abdominal pain Acute Normocytic anemia Acute UTI (urinary tract infection) Acute Condition: STABLE
[2018-07-02 20:12] LABS: BASO # 0.02 K/mm3 (0.0-2.0); BASO % 0.2 % (0.0-3.0); EOS # 0.2 (0.0-0.7); EOS % 2.1 % (1.5-5.0); GRAN # 5.47 (1.4-6.5); GRAN % 67.5 % (50.0-68.0); HEMOGLOBIN 10.3 g/dL (12.0-16.0); LYMPH # 1.8 (1.2-3.4); LYMPH % 22.7 % (22.0-35.0); MEAN CELL VOLUME 84.8 fl (80.0-105.0); MEAN CORPUSCULAR HEMOGLOBIN 26.6 pg (25.0-35.0); MEAN CORPUSCULAR HGB CONC 31.4 g/dl (31.0-37.0); MEAN PLATELET VOLUME 9.7 fl (7.0-11.0); MONO # 0.6 (0.1-0.6); MONO % 7.5 % (1.0-6.0); RBC 3.87 10^6/uL (3.5-6.1); RED CELL DISTRIBUTION WIDTH 14.2 % (11.5-14.5); WHITE BLOOD COUNT 8.1 10^3/uL (4.5-11.0)
[2018-07-02] MEDS ORDERED: Sodium Chloride 0.9% 1,000 ML IV STA (20:19)
[2018-07-02] MEDS ORDERED: Iohexol 240 (50 ml) ONE (20:19)
[2018-07-02] MEDS ORDERED: Morphine 2 mg/ml ISec IVP STA (20:20)
[2018-07-02 20:41] LABS: ALB/GLOB RATIO 1.4 (1.1-1.8); ALBUMIN 4.3 g/dL (3.0-4.8); ALT/SGPT 71 U/L (7-56); AST/SGOT 53 U/L (14-36); BLOOD UREA NITROGEN 8 mg/dL (7-21); CALCIUM 9.2 mg/dL (8.4-10.5); GFR NON-AFRICAN AMERICAN > 60
[2018-07-02 20:51] LABS: INR 1.09; PARTIAL THROMBOPLASTIN TIME 31.3 Seconds (25.1-36.5); PROTHROMBIN TIME 12.5 SECONDS (9.4-12.5)
[2018-07-02] MEDS ORDERED: Iodixanol 320 MG/ML 100 ML BOTTLE IV ONE (22:47)
[2018-07-03] MEDS ORDERED: cefTRIAXone 1 gm 1 GM/100 ML BAG IVPB STA (00:06)
[2018-07-03] MEDS: metroNIDAZOLE IV 500 mg/100 ml 500 MG/100 ML BAG IVPB SCH ×2 (01:52→06:53)
[2018-07-03 02:49] LABS: IRON 49 ug/dL (45-180)
[2018-07-03 02:58] LABS: % IRON SATURATION 14 % (20-55); TOTAL IRON BINDING CAPACITY 365 ug/dL (265-497)
--- NOTE | 2018-07-03 03:20 | CP.PCM.HP ---
History of Present Illness - History of Present Illness History of Present Illness: Dg Rodarteel PGY1 Internal Medicine Supply Chain Manager - Medicine H&P CC: Abdominal Pain 55 Guinean speaking female w/ a PMH of PUD, DM, HTN, anxiety, renal tumor, SBO, had presented to [facility] [place]- for c/o on abdominal pain. On 07/02, she returned to ED after an updated read of her abd xray on 07/01 showed an early partial bowel obstruction. Upon evaluation patient has been complaining of RLQ pain x4 days; she reported that hte pain is sharp, worse w/ eating. She reports her appetite has been worsening for 7 days. She has associated N/V w/ 4 episodes of NBNB vomitus. She reports x3 episodes of NB diarrhea week ago when she was eating last week. Denies any hematochezia however does report melena one month ago. Remainder of 12 system ROS Is negative at this time. PMD: [place] PMH: as above PSH: Cholecystectomy, Kidney tumor resection (non malignant as per patient), Small intestine surgery? 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: Menopause in 2009; no reports of vaginal bleeding since then Fam Hx: Breast CA Present on Admission - Present on Admission Any Indicators Present on Admission: No Review of Systems - Review of Systems All systems: reviewed and no additional remarkable complaints except Review of Systems: as per HPI Past Patient History - Infectious Disease Hx of Infectious Diseases: None - Past Social History Smoking Status: Never Smoked - CARDIAC Hx Cardiac Disorders: Yes Hx Hypertension: Yes - PULMONARY Hx Respiratory Disorders: No - NEUROLOGICAL Hx Neurological Disorder: No - HEENT Hx HEENT Problems: No - RENAL Hx Chronic Kidney Disease: Yes Other/Comment: renal tumor - ENDOCRINE/METABOLIC Hx Diabetes Mellitus Type 2: Yes - HEMATOLOGICAL/ONCOLOGICAL Hx Blood Disorders: No - INTEGUMENTARY Hx Dermatological Problems: No - MUSCULOSKELETAL/RHEUMATOLOGICAL Hx Musculoskeletal Disorders: No - GASTROINTESTINAL Hx Gastrointestinal Disorders: No - GENITOURINARY/GYNECOLOGICAL Hx Genitourinary Disorders: No - PSYCHIATRIC Hx Psychophysiologic Disorder: Yes Hx Anxiety: Yes Hx Depression: Yes Hx Substance Use: No - SURGICAL HISTORY Other/Comment: kidney tumor. and unknown abdominal surgery - ANESTHESIA Hx Anesthesia: Yes Hx Anesthesia Reactions: No Hx Malignant Hyperthermia: No Meds Allergies/Adverse Reactions: Allergies Allergy/AdvReac Type Severity Reaction Status Date / Time No Known Allergies Allergy Verified 07/02/18 19:52 Physical Exam - Constitutional Appears: Well, Non-toxic, No Acute Distress - Head Exam Head Exam: ATRAUMATIC, NORMOCEPHALIC - Eye Exam Eye Exam: EOMI, Normal appearance, PERRL. absent: Scleral icterus - ENT Exam ENT Exam: Mucous Membranes Moist, Normal Exam - Neck Exam Neck exam: Positive for: Normal Inspection - Respiratory Exam Respiratory Exam: Clear to Auscultation Bilateral, NORMAL BREATHING PATTERN - Cardiovascular Exam Cardiovascular Exam: RRR, +S1, +S2 - GI/Abdominal Exam GI & Abdominal Exam: Soft Additional comments: Upon evaluation of the abdomen, it is grossly obese, with normoactive bowel sings. there are multiple surgical scars appreciate along the the abdominal midline. [place] sign is negative There is initialy some tenderness in the RLQ however after distracting the patient, the pain seems to subside. No suprapubic tenderness appreciate; remaining quadrants are non tender. Due to her habitus, it is difficult to palpate any intraabdominal masses; however grossly there appear to be none on palpation. - Extremities Exam Extremities exam: Positive for: pedal pulses present. Negative for: pedal edema - Back Exam Back exam: absent: CVA tenderness (L), CVA tenderness (R) - Neurological Exam Neurological exam: Alert, CN II-XII Intact, Oriented x3 - Psychiatric Exam Psychiatric exam: Normal Affect, Normal Mood - Skin Skin Exam: Dry, Intact, Warm Results - Vital Signs Recent Vital Signs: Last Vital Signs Temp 98.5 F 07/02/18 19:51 Pulse 68 07/03/18 01:56 Resp 17 07/03/18 01:56 BP 133/62 07/03/18 01:56 Pulse Ox 100 07/03/18 01:56 - Labs Result Diagrams: 07/02/18 20:04 07/02/18 20:04 Labs: Laboratory Results - last 24 hr 07/02/18 07/02/18 07/02/18 20:04 20:04 20:04 WBC 8.1 RBC 3.87 Hgb 10.3 L Hct 32.8 L MCV 84.8 MCH 26.6 MCHC 31.4 RDW 14.2 Plt Count 267 MPV 9.7 Gran % 67.5 Lymph % (Auto) 22.7 [place] % (Auto) 7.5 H Eos % (Auto) 2.1 Baso % (Auto) 0.2 Gran # 5.47 Lymph # (Auto) 1.8 [place] # (Auto) 0.6 Eos # (Auto) 0.2 Baso # (Auto) 0.02 Retic Count PT INR APTT Sodium 140 Potassium 3.6 Chloride 105 Carbon Dioxide 25 Anion Gap 14 BUN 8 Creatinine 0.9 Est GFR ( Amer) > 60 Est GFR (Non-Af Amer) > 60 Random Glucose 90 Calcium 9.2 Phosphorus Magnesium Iron 49 TIBC 365 % Saturation 14 L Total Bilirubin 1.0 AST 53 H D ALT 71 H Alkaline Phosphatase 80 Total Protein 7.4 Albumin 4.3 Globulin 3.1 Albumin/Globulin Ratio 1.4 07/02/18 07/02/18 07/02/18 20:04 20:04 20:17 WBC RBC Hgb Hct MCV MCH MCHC RDW Plt Count MPV Gran % Lymph % (Auto) [place] % (Auto) Eos % (Auto) Baso % (Auto) Gran # Lymph # (Auto) [place] # (Auto) Eos # (Auto) Baso # (Auto) Retic Count 3.43 H PT 12.5 INR 1.09 APTT 31.3 Sodium Potassium Chloride Carbon Dioxide Anion Gap BUN Creatinine Est GFR ( Amer) Est GFR (Non-Af Amer) Random Glucose Calcium Phosphorus 3.7 Magnesium 1.9 Iron TIBC % Saturation Total Bilirubin AST ALT Alkaline Phosphatase Total Protein Albumin Globulin Albumin/Globulin Ratio Assessment & Plan - Assessment and Plan (Free Text) Assessment: 55 [place]inean speaking female w/ a PMH of PUD, DM, HTN, anxiety, renal tumor, SBO, had presented to [facility] [place] on [place]/30- for c/o on abdominal pain. On 07/02, she returned to ED after an updated read of her abd xray on 07/01 showed an early p artial bowel obstruction. PLAN: Abdominal Pain: PUD vs Partial Bowel Obstruction vs R adnexal inflammation/ R ovarian cyst Prelim CTAP read: 1. Anterior abdominal wall postsurgical change is likely chronic in nature. 2. No CT evidence of obstruction is noted. 3. Again following status post cholecystectomy. 4. Sigmoid colon diverticulosis without diverticulitis. 5. Mildly prominent common bile duct likely physiologic. 6. Again mild atelectatic changes are seen at both lung bases. 7. Small hiatal hernia is again noted. 8. No other significant change. 9. No inflammatory changes are seen in the right lower quadrant suggestive of appendicitis. R ovarian cyst was not noted on official read; however it was visible on self read Transvaginal US pending / Pelvic US pending Gallbladder/ Hepatic US pending IV abx - Flagyll + Rocephin Protonix 40 mg IVP NPO w/ D5NS at 75cc/hour maintenance F/u FOBT GI Consulted, appreciate reccs GIFT OFFICER Consulted, appreciate reccs Anemia - Normocytic B12 Folate Iron TIBC Ferritin Reticulocyte Hx DM D5 NS ISS Low Q6 Accucheck Q6 Hx HTN No home RX? Monitor and address as needed GI/DVT PPX: Protonix/ Heparin Patient was seen examined and discussed w/ attending Dr. Eber Neumann DO PGY1 - Internal Medicine Supply Chain Manager - Date & Time Date: 07/03/18 Time: 04:53
[2018-07-03 03:23] VITALS: RESP 20; BMI 23.6
[2018-07-03] MEDS ORDERED: Dextrose 50% SYRINGE Inj (50 ml) IVP ONE (03:39)
[2018-07-03] MEDS ORDERED: Dextrose 5%/0.9% NS 1,000 ML IV SCH (03:45)
[2018-07-03] MEDS ORDERED: Insulin Lispro (humaLOG) LOW Coverage SC SCH (03:45)
[2018-07-03 07:23] LABS: BASO # 0.02 K/mm3 (0.0-2.0); BASO % 0.3 % (0.0-3.0); EOS # 0.2 (0.0-0.7); EOS % 3.6 % (1.5-5.0); GRAN # 4.15 (1.4-6.5); GRAN % 61.4 % (50.0-68.0); HEMOGLOBIN 9.6 g/dL (12.0-16.0); LYMPH # 1.9 (1.2-3.4); MEAN CELL VOLUME 84.4 fl (80.0-105.0); MEAN CORPUSCULAR HEMOGLOBIN 26.2 pg (25.0-35.0); MEAN CORPUSCULAR HGB CONC 31.1 g/dl (31.0-37.0); MEAN PLATELET VOLUME 9.7 fl (7.0-11.0); MONO # 0.5 (0.1-0.6); MONO % 6.7 % (1.0-6.0); RBC 3.66 10^6/uL (3.5-6.1); RED CELL DISTRIBUTION WIDTH 14.3 % (11.5-14.5); WHITE BLOOD COUNT 6.8 10^3/uL (4.5-11.0)
--- NOTE | 2018-07-03 07:37 | CP.PCM.CON ---
History of Present Illness - History of Present Illness History of Present Illness: Surgery: Dr. Wilkinson Reason for consult: RLQ tenderness on exam CC: RMQ and RLQ abdominal pain HPI: Patient is a 55 y/o female with extensive past surgical history presents complaining of RMQ to RLQ abdominal pain that has been present for the past couple of days. She reports the pain as sharp stabbing in nature. She denies any exacerbating factors. She states she has not been able to eat for the past 7 days due to the pain although eating does not make the pain worse. She reports 3-4 episodes of nonbloody nonbilious emesis today associated with the pain. She states she has chronic diarrhea when she does eat but has not had a bowel movement over the past 7 days because she has not eaten. No blood or black stools. She denies f/c. She reports having a prior colonoscopy in the past which she states they removed a few polyps but were all benign. PMH: PUD, DM, HTN, anxiety, renal tumor, SBO, PSH: ex lap, r renal tumor removal, small bowel resection (SBO), cholecystectomy Social: denies toxic habits Review of Systems - Review of Systems All systems: reviewed and no additional remarkable complaints except Review of Systems: unless stated in HPI Past Patient History - Infectious Disease Hx of Infectious Diseases: None - Past Social History Smoking Status: Never Smoked - CARDIAC Hx Cardiac Disorders: Yes Hx Hypertension: Yes - PULMONARY Hx Respiratory Disorders: No - NEUROLOGICAL Hx Neurological Disorder: No - HEENT Hx HEENT Problems: No - RENAL Hx Chronic Kidney Disease: Yes Other/Comment: renal tumor - ENDOCRINE/METABOLIC Hx Diabetes Mellitus Type 2: Yes - HEMATOLOGICAL/ONCOLOGICAL Hx Blood Disorders: No - INTEGUMENTARY Hx Dermatological Problems: No - MUSCULOSKELETAL/RHEUMATOLOGICAL Hx Musculoskeletal Disorders: No - GASTROINTESTINAL Hx Gastrointestinal Disorders: No - GENITOURINARY/GYNECOLOGICAL Hx Genitourinary Disorders: No - PSYCHIATRIC Hx Psychophysiologic Disorder: Yes Hx Anxiety: Yes Hx Depression: Yes Hx Substance Use: No - SURGICAL HISTORY Other/Comment: kidney tumor. and unknown abdominal surgery - ANESTHESIA Hx Anesthesia: Yes Hx Anesthesia Reactions: No Hx Malignant Hyperthermia: No Meds Allergies/Adverse Reactions: Allergies Allergy/AdvReac Type Severity Reaction Status Date / Time No Known Allergies Allergy Verified 07/02/18 19:52 - Medications Medications: Current Medications Heparin Sodium (Porcine) (Heparin) 5,000 units SC Q8 JILL; Protocol Last Admin: 07/03/18 06:52 Dose: 5,000 units Metronidazole (Flagyl) 500 mg in 100 mls @ 100 mls/hr IVPB Q8 JILL; Protocol Last Admin: 07/03/18 06:53 Dose: 100 mls/hr Ceftriaxone Sodium (Rocephin 1 Gram Ivpb) 1 gm in 100 mls @ 100 mls/hr IVPB DAILY JILL; Protocol Dextrose/Sodium Chloride (Dextrose 5%/0.9% Ns 1000 Ml) 1,000 mls @ 75 mls/hr IV .[id number] JILL Insulin Human Lispro (Humalog Low) 0 units SC Q6H JILL; Protocol Pantoprazole Sodium (Protonix Inj) 40 mg IVP DAILY JILL Physical Exam - Constitutional Appears: Non-toxic, No Acute Distress - Head Exam Head Exam: ATRAUMATIC, NORMOCEPHALIC - Eye Exam Eye Exam: EOMI, Normal appearance - ENT Exam ENT Exam: Mucous Membranes Moist - Respiratory Exam Respiratory Exam: NORMAL BREATHING PATTERN. absent: Respiratory Distress - Cardiovascular Exam Cardiovascular Exam: REGULAR RHYTHM. absent: Tachycardia - GI/Abdominal Exam GI & Abdominal Exam: Hernia (non tender to palpation, reducible ), Soft, Tenderness (RLQ, voluntary gaurding ). absent: Distended, Guarding, Rebound, Rigid Additional comments: multiple abdominal scars, midline well healed - Rectal Exam Rectal Exam: Deferred - Extremities Exam Extremities exam: Positive for: normal inspection. Negative for: calf tenderness - Neurological Exam Neurological exam: Alert, Oriented x3 - Psychiatric Exam Psychiatric exam: Normal Affect, Normal Mood - Skin Skin Exam: Dry, Normal Color, Warm Results - Vital Signs Recent Vital Signs: Last Vital Signs Temp 98.5 F 07/02/18 19:51 Pulse 68 07/03/18 01:56 Resp 20 07/03/18 02:53 BP 133/62 07/03/18 01:56 Pulse Ox 100 07/03/18 01:56 - Labs Result Diagrams: 07/03/18 07:00 07/02/18 20:04 Labs: Laboratory Results - last 24 hr 07/02/18 07/02/18 07/02/18 20:04 20:04 20:04 WBC 8.1 RBC 3.87 Hgb 10.3 L Hct 32.8 L MCV 84.8 MCH 26.6 MCHC 31.4 RDW 14.2 Plt Count 267 MPV 9.7 Gran % 67.5 Lymph % (Auto) 22.7 [place] % (Auto) 7.5 H Eos % (Auto) 2.1 Baso % (Auto) 0.2 Gran # 5.47 Lymph # (Auto) 1.8 [place] # (Auto) 0.6 Eos # (Auto) 0.2 Baso # (Auto) 0.02 Retic Count PT INR APTT Sodium 140 Potassium 3.6 Chloride 105 Carbon Dioxide 25 Anion Gap 14 BUN 8 Creatinine 0.9 Est GFR ( Amer) > 60 Est GFR (Non-Af Amer) > 60 Random Glucose 90 Calcium 9.2 Phosphorus Magnesium Iron 49 TIBC 365 % Saturation 14 L Total Bilirubin 1.0 AST 53 H D ALT 71 H Alkaline Phosphatase 80 Total Protein 7.4 Albumin 4.3 Globulin 3.1 Albumin/Globulin Ratio 1.4 07/02/18 07/02/18 07/02/18 20:04 20:04 20:17 WBC RBC Hgb Hct MCV MCH MCHC RDW Plt Count MPV Gran % Lymph % (Auto) [place] % (Auto) Eos % (Auto) Baso % (Auto) Gran # Lymph # (Auto) [place] # (Auto) Eos # (Auto) Baso # (Auto) Retic Count 3.43 H PT 12.5 INR 1.09 APTT 31.3 Sodium Potassium Chloride Carbon Dioxide Anion Gap BUN Creatinine Est GFR ( Amer) Est GFR (Non-Af Amer) Random Glucose Calcium Phosphorus 3.7 Magnesium 1.9 Iron TIBC % Saturation Total Bilirubin AST ALT Alkaline Phosphatase Total Protein Albumin Globulin Albumin/Globulin Ratio 07/03/18 07:00 WBC 6.8 RBC 3.66 Hgb 9.6 L Hct 30.9 L MCV 84.4 MCH 26.2 MCHC 31.1 RDW 14.3 Plt Count 233 MPV 9.7 Gran % 61.4 Lymph % (Auto) 28.0 [place] % (Auto) 6.7 H Eos % (Auto) 3.6 Baso % (Auto) 0.3 Gran # 4.15 Lymph # (Auto) 1.9 [place] # (Auto) 0.5 Eos # (Auto) 0.2 Baso # (Auto) 0.02 Retic Count PT INR APTT Sodium Potassium Chloride Carbon Dioxide Anion Gap BUN Creatinine Est GFR ( Amer) Est GFR (Non-Af Amer) Random Glucose Calcium Phosphorus Magnesium Iron TIBC % Saturation Total Bilirubin AST ALT Alkaline Phosphatase Total Protein Albumin Globulin Albumin/Globulin Ratio Assessment & Plan - Assessment and Plan (Free Text) Assessment: 55 y/o female w/ persistent abdominal pain right sided Plan: -poss. 2/2 constipation vs adnexal in origin vs incisional hernia pain -recommend transvaginal u/s for evaluation -bowel regimen -hernias reducible and nontender, so most likely not etiology of pain -may need GI consult -further recs per Dr. Minh Millard PGY4
[2018-07-03 08:17] VITALS: BP 111/70; PULSE 69; TEMP 97.7; O2SAT 98
[2018-07-03 08:45] LABS: ALB/GLOB RATIO 1.1 (1.1-1.8); ALBUMIN 3.4 g/dL (3.0-4.8); ALT/SGPT 67 U/L (7-56); AST/SGOT 57 U/L (14-36); BLOOD UREA NITROGEN 6 mg/dL (7-21); CALCIUM 8.2 mg/dL (8.4-10.5); GFR NON-AFRICAN AMERICAN > 60
--- NOTE | 2018-07-03 09:52 | CT ---
Date of service: 07/02/2018 PROCEDURE: CT Abdomen and Pelvis with contrast HISTORY: rule out bowel obstruction; abdominal pain, N/V COMPARISON: 07/01/2018 TECHNIQUE: Contrast dose: Radiation dose: Total exam DLP = 906.18 mGy-cm. This CT exam was performed using one or more of the following dose reduction techniques: Automated exposure control, adjustment of the mA and/or kV according to patient size, and/or use of iterative reconstruction technique. FINDINGS: LOWER THORAX: Small hiatal hernia.. LIVER: Unremarkable. No gross lesion or ductal dilatation. GALLBLADDER AND BILE DUCTS: Cholecystectomy. PANCREAS: Unremarkable. No gross lesion or ductal dilatation. SPLEEN: Unremarkable. ADRENALS: Unremarkable. No mass. KIDNEYS AND URETERS: Unremarkable. No hydronephrosis. No solid mass. VASCULATURE: Unremarkable. No aortic aneurysm. No aortic atherosclerotic calcification or mural plaque present. BOWEL: Colonic diverticulosis.. Mild small bowel distention compatible with an ileus.. APPENDIX: Normal appendix. PERITONEUM: Unremarkable. No free fluid. No free air. LYMPH NODES: Unremarkable. No enlarged lymph nodes. BLADDER: Unremarkable. REPRODUCTIVE: Unremarkable. BONES: No acute fracture. OTHER FINDINGS: Anterior abdominal wall postsurgical change. IMPRESSION: Mild small-bowel distention in the central abdomen compatible with ileus. Findings appear new since yesterday's exam.
[2018-07-03] MEDS ORDERED: cefTRIAXone 1 gm 1 GM/100 ML BAG IVPB SCH (10:00)
[2018-07-03 12:16] LABS: FERRITIN 44.7 ng/mL
[2018-07-03 12:46] LABS: FOLATE 17.8 ng/mL
--- NOTE | 2018-07-03 15:09 | CP.PCM.DIS ---
<DelbertkingaEsvin - Last Filed: 07/03/18 16:08> Provider - Provider Date of Admission: 07/03/18 00:29 Attending physician: Mercy Neumann DO Primary care physician: Ladi Salazar MD Time Spent in preparation of Discharge (in minutes): 40 Hospital Course - Lab Results Lab Results: Most Recent Lab Values WBC 6.8 10^3/uL (4.5-11.0) 07/03/18 07:00 RBC 3.66 10^6/uL (3.5-6.1) 07/03/18 07:00 Hgb 9.6 g/dL (12.0-16.0) L 07/03/18 07:00 Hct 30.9 % (36.0-48.0) L 07/03/18 07:00 MCV 84.4 fl (80.0-105.0) 07/03/18 07:00 MCH 26.2 pg (25.0-35.0) 07/03/18 07:00 MCHC 31.1 g/dl (31.0-37.0) 07/03/18 07:00 RDW 14.3 % (11.5-14.5) 07/03/18 07:00 Plt Count 233 10^3/uL (120.0-450.0) 07/03/18 07:00 MPV 9.7 fl (7.0-11.0) 07/03/18 07:00 Gran % 61.4 % (50.0-68.0) 07/03/18 07:00 Lymph % (Auto) 28.0 % (22.0-35.0) 07/03/18 07:00 [place] % (Auto) 6.7 % (1.0-6.0) H 07/03/18 07:00 Eos % (Auto) 3.6 % (1.5-5.0) 07/03/18 07:00 Baso % (Auto) 0.3 % (0.0-3.0) 07/03/18 07:00 Gran # 4.15 (1.4-6.5) 07/03/18 07:00 Lymph # (Auto) 1.9 (1.2-3.4) 07/03/18 07:00 [place] # (Auto) 0.5 (0.1-0.6) 07/03/18 07:00 Eos # (Auto) 0.2 (0.0-0.7) 07/03/18 07:00 Baso # (Auto) 0.02 K/mm3 (0.0-2.0) 07/03/18 07:00 Retic Count 3.43 % (0.5-1.5) H 07/02/18 20:04 PT 12.5 SECONDS (9.4-12.5) 07/02/18 20:17 INR 1.09 07/02/18 20:17 APTT 31.3 Seconds (25.1-36.5) 07/02/18 20:17 Sodium 141 mmol/L (132-148) 07/03/18 07:00 Potassium 3.3 mmol/L (3.6-5.0) L 07/03/18 07:00 Chloride 106 mmol/L (98-107) 07/03/18 07:00 Carbon Dioxide 26 mmol/L (21-33) 07/03/18 07:00 Anion Gap 12 (10-20) 07/03/18 07:00 BUN 6 mg/dL (7-21) L 07/03/18 07:00 Creatinine 0.9 mg/dl (0.7-1.2) 07/03/18 07:00 Est GFR ( Amer) > 60 07/03/18 07:00 Est GFR (Non-Af Amer) > 60 07/03/18 07:00 POC Glucose (mg/dL) 103 mg/dL (65-110) 07/03/18 06:45 Random Glucose 103 mg/dL (70-110) 07/03/18 07:00 Calcium 8.2 mg/dL (8.4-10.5) L 07/03/18 07:00 Phosphorus 3.7 mg/dL (2.5-4.5) 07/02/18 20:04 Magnesium 1.9 mg/dL (1.7-2.2) 07/02/18 20:04 Iron 49 ug/dL (45-180) 07/02/18 20:04 TIBC 365 ug/dL (265-497) 07/02/18 20:04 % Saturation 14 % (20-55) L 07/02/18 20:04 Ferritin 44.7 ng/mL 07/02/18 20:04 Total Bilirubin 0.7 mg/dL (0.2-1.3) 07/03/18 07:00 AST 57 U/L (14-36) H 07/03/18 07:00 ALT 67 U/L (7-56) H 07/03/18 07:00 Alkaline Phosphatase 63 U/L (38-126) 07/03/18 07:00 Total Protein 6.5 g/dL (5.8-8.3) 07/03/18 07:00 Albumin 3.4 g/dL (3.0-4.8) 07/03/18 07:00 Globulin 3.1 gm/dL 07/03/18 07:00 Albumin/Globulin Ratio 1.1 (1.1-1.8) 07/03/18 07:00 Vitamin B12 241 pg/mL (239-931) 07/02/18 20:04 Folate 17.8 ng/mL 07/02/18 20:04 - Hospital Course Hospital Course: HPI: Patient is a 55 year old Slovenian-speaking female with extensive past surgical history presents complaining of to RLQ abdominal pain that has been present for the past couple of days. She reports the pain as sharp stabbing in nature. She denies any exacerbating factors. She states she has not been able to eat for the past 7 days due to the pain although eating does not make the pain worse. She reports 3-4 episodes of nonbloody nonbilious emesis today associated with the pain. She states she has chronic diarrhea when she does eat but has not had a bowel movement over the past 7 days because she has not eaten. No blood or black stools. She denies fevers or chills. She reports having a prior colonoscopy in the past which she states they removed a few polyps but were all benign. Of note, patient had presented to [facility] ED on 06/30- for complaint of abdominal pain and eloped from the hospital on 07/01. On 07/02, she returned to ED after an updated read of her abdominal xray showed an early partial bowel obstruction. During the course of admission, surgery was consulted for her R lower quadrant tenderness on exam. Transvaginal ultrasound were recommended for evaluation of possible adnexal mass. Hernial findings on imaging were reducible and nontender, so most likely not etiology of pain. GI (Dr. Lanier) was consulted for abdominal pain and history of peptic ulcer disease. Patient refused further workup and decided to sign out of hospital against medical advice. The patient expressed desire to sign out against medical advice. This decision was made with informed refusal. The patient was told that continued hospital course is necessary. Explanations of the reasons why were discussed. The risks of leaving were explained to the patient and include, but are not limited to, worsening of known or currently unknown conditions, end-organ damage, and . The patient has the capacity to make this informed decision and understands my explanation of the current medical problem and risks of leaving. The patient voluntarily accepts these risks and signed an AMA form documenting our conversation. The patient was given the opportunity to asks questions and reconsider. The patient was encouraged to return to the ED at any time for further care. The following is a summary of hospital course. For full detail, please refer to patient's EMR. - Date & Time of H&P Date of H&P: 07/03/18 Time of H&P: 14:59 Discharge Exam - Head Exam Head Exam: ATRAUMATIC, NORMAL INSPECTION, NORMOCEPHALIC - Eye Exam Eye Exam: EOMI, Normal appearance Pupil Exam: NORMAL ACCOMODATION, PERRL - ENT Exam ENT Exam: Mucous Membranes Moist, Normal Exam - Respiratory Exam Respiratory Exam: Clear to PA & Lateral, NORMAL BREATHING PATTERN, UNREMARKABLE. absent: Rales, Rhonchi, Wheezes, Respiratory Distress, Stridor - Cardiovascular Exam Cardiovascular Exam: REGULAR RHYTHM, +S1, +S2 - GI/Abdominal Exam GI & Abdominal Exam: Hyperactive Bowel Sounds, Soft, Tenderness (mild generalized TTP), Unremarkable. absent: Distended, Firm, Guarding, Rebound, Rigid - Extremities Exam Extremities exam: full ROM, normal capillary refill, normal inspection, pedal pulses present - Back Exam Back exam: NORMAL INSPECTION - Neurological Exam Neurological exam: Alert, Normal Gait, Oriented x3, Reflexes Normal - Psychiatric Exam Psychiatric exam: Anxious, Depressed - Skin Skin Exam: Dry, Intact, Normal Color, Warm Discharge Plan - Follow Up Plan Condition: STABLE Disposition: AGAINST MEDICAL ADVICE Referrals: Ladi Salazar MD [Primary Care Provider] - <Siva Acevedo - Last Filed: 07/03/18 17:17> Provider - Provider Date of Admission: 07/03/18 00:29 Attending physician: Mercy Neumann DO Primary care physician: Ladi Salazar MD [facility] Course - Lab Results Lab Results: Most Recent Lab Values WBC 6.8 10^3/uL (4.5-11.0) 07/03/18 07:00 RBC 3.66 10^6/uL (3.5-6.1) 07/03/18 07:00 Hgb 9.6 g/dL (12.0-16.0) L 07/03/18 07:00 Hct 30.9 % (36.0-48.0) L 07/03/18 07:00 MCV 84.4 fl (80.0-105.0) 07/03/18 07:00 MCH 26.2 pg (25.0-35.0) 07/03/18 07:00 MCHC 31.1 g/dl (31.0-37.0) 07/03/18 07:00 RDW 14.3 % (11.5-14.5) 07/03/18 07:00 Plt Count 233 10^3/uL (120.0-450.0) 07/03/18 07:00 MPV 9.7 fl (7.0-11.0) 07/03/18 07:00 Gran % 61.4 % (50.0-68.0) 07/03/18 07:00 Lymph % (Auto) 28.0 % (22.0-35.0) 07/03/18 07:00 [place] % (Auto) 6.7 % (1.0-6.0) H 07/03/18 07:00 Eos % (Auto) 3.6 % (1.5-5.0) 07/03/18 07:00 Baso % (Auto) 0.3 % (0.0-3.0) 07/03/18 07:00 Gran # 4.15 (1.4-6.5) 07/03/18 07:00 Lymph # (Auto) 1.9 (1.2-3.4) 07/03/18 07:00 [place] # (Auto) 0.5 (0.1-0.6) 07/03/18 07:00 Eos # (Auto) 0.2 (0.0-0.7) 07/03/18 07:00 Baso # (Auto) 0.02 K/mm3 (0.0-2.0) 07/03/18 07:00 Retic Count 3.43 % (0.5-1.5) H 07/02/18 20:04 PT 12.5 SECONDS (9.4-12.5) 07/02/18 20:17 INR 1.09 07/02/18 20:17 APTT 31.3 Seconds (25.1-36.5) 07/02/18 20:17 Sodium 141 mmol/L (132-148) 07/03/18 07:00 Potassium 3.3 mmol/L (3.6-5.0) L 07/03/18 07:00 Chloride 106 mmol/L (98-107) 07/03/18 07:00 Carbon Dioxide 26 mmol/L (21-33) 07/03/18 07:00 Anion Gap 12 (10-20) 07/03/18 07:00 BUN 6 mg/dL (7-21) L 07/03/18 07:00 Creatinine 0.9 mg/dl (0.7-1.2) 07/03/18 07:00 Est GFR ( Amer) > 60 07/03/18 07:00 Est GFR (Non-Af Amer) > 60 07/03/18 07:00 POC Glucose (mg/dL) 103 mg/dL (65-110) 07/03/18 06:45 Random Glucose 103 mg/dL (70-110) 07/03/18 07:00 Calcium 8.2 mg/dL (8.4-10.5) L 07/03/18 07:00 Phosphorus 3.7 mg/dL (2.5-4.5) 07/02/18 20:04 Magnesium 1.9 mg/dL (1.7-2.2) 07/02/18 20:04 Iron 49 ug/dL (45-180) 07/02/18 20:04 TIBC 365 ug/dL (265-497) 07/02/18 20:04 % Saturation 14 % (20-55) L 07/02/18 20:04 Ferritin 44.7 ng/mL 07/02/18 20:04 Total Bilirubin 0.7 mg/dL (0.2-1.3) 07/03/18 07:00 AST 57 U/L (14-36) H 07/03/18 07:00 ALT 67 U/L (7-56) H 07/03/18 07:00 Alkaline Phosphatase 63 U/L (38-126) 07/03/18 07:00 Total Protein 6.5 g/dL (5.8-8.3) 07/03/18 07:00 Albumin 3.4 g/dL (3.0-4.8) 07/03/18 07:00 Globulin 3.1 gm/dL 07/03/18 07:00 Albumin/Globulin Ratio 1.1 (1.1-1.8) 07/03/18 07:00 Vitamin B12 241 pg/mL (239-931) 07/02/18 20:04 Folate 17.8 ng/mL 07/02/18 20:04 Attending/Attestation - Attestation I have personally seen and examined this patient.: No I have fully participated in the care of the patient.: Yes I have reviewed all pertinent clinical information, including history, physical exam and plan: Yes
--- NOTE | 2018-07-03 15:18 | US ---
Date of service: 07/02/2018 HISTORY: abdominal pain COMPARISON: None. TECHNIQUE: Sonographic evaluation of the right upper quadrant of the abdomen. FINDINGS: LIVER: Measures 15.2 cm in length. Normal echogenicity of the liver parenchyma. No mass. No intrahepatic bile duct dilatation. GALLBLADDER: Removed COMMON BILE DUCT: Measures 8.1 mm. No stones. No dilatation. PANCREAS: Unremarkable as visualized. No mass. No ductal dilatation. RIGHT KIDNEY: Measures 9.4 x 3.8 x 5.2 cm in length. Normal echogenicity. No calculus, mass, or hydronephrosis. AORTA: No aneurysmal dilatation. IVC: Unremarkable. OTHER FINDINGS: None . IMPRESSION: No acute findings
== END 2018-07-03 09:39 | disposition left against medical advice (07) | DRG 180 ==
LOC: ED 19:13 → MERGE 07-03 00:29 → ERH 07-03 00:29 → 5RSO 07-03 02:29
PROVIDERS: ADMIT Hospitalist; ATTEND Hospitalist
DX: K56.609 Unspecified intestinal obstruction, unspecified as to partial versus complete obstruction (principal); N18.9 Chronic kidney disease, unspecified; E11.22 Type 2 diabetes mellitus with diabetic chronic kidney disease; N39.0 Urinary tract infection, site not specified; K57.30 Diverticulosis of large intestine without perforation or abscess without bleeding; I12.9 Hypertensive chronic kidney disease with stage 1 through stage 4 chronic kidney disease, or unspecified chronic kidney disease; Z80.3 Family history of malignant neoplasm of breast; D64.9 Anemia, unspecified; K44.9 Diaphragmatic hernia without obstruction or gangrene; K52.9 Noninfective gastroenteritis and colitis, unspecified; Z87.11 Personal history of peptic ulcer disease; Z90.49 Acquired absence of other specified parts of digestive tract

== ENCOUNTER 2018-07-03 23:19 | Observation (INO) | payer MEDICAID ==
[2018-07-03 23:19] VITALS: BMI 23.6
[2018-07-04] MEDS ORDERED: Sodium Chloride 0.9% 1,000 ML IV STA (00:11)
--- NOTE | 2018-07-04 00:24 | ED PDOC ---
Arrival/HPI - General Chief Complaint: Abdominal Pain Time Seen by Provider: 07/03/18 23:44 Historian: Patient - History of Present Illness Narrative History of Present Illness (Text): 07/04/18 00:18 55yo female with pmhx of hypertension, PUD, renal tumor, DM, anxiety, SBO who present with complaint of RUQ abdominal pain x 3days. Patient is Welsh speaking and the daughter by the bedside interpreted. States pain causes patient to have SOB. Patient report 5episodes of nonbloody/billious vomiting and 3 episodes of diarrhea today. She was admitted on for same complaint and signed out AMA. 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 States she came back to be readmitted for the pain. she denies fever, chills, urinary symptoms, chest pain, melena, hematemesis, hematuria, any other complaint. Past Medical History - Provider Review Nursing Documentation Reviewed: Yes - Infectious Disease Hx of Infectious Diseases: None - Tetanus Immunization Tetanus Immunization: Unknown - Cardiac Hx Cardiac Disorders: Yes Hx Hypertension: Yes - Pulmonary Hx Respiratory Disorders: No - Neurological Hx Neurological Disorder: No - HEENT Hx HEENT Disorder: No - Renal Hx Renal Disorder: Yes Other/Comment: renal tumor - Endocrine/Metabolic Hx Diabetes Mellitus Type 2: Yes - Hematological/Oncological Hx Blood Disorders: No - Integumentary Hx Dermatological Disorder: No - Musculoskeletal/Rheumatological Hx Musculoskeletal Disorders: No - Gastrointestinal Hx Gastrointestinal Disorders: No - Genitourinary/Gynecological Hx Genitourinary Disorders: No - Psychiatric Hx Psychophysiologic Disorder: Yes Hx Anxiety: Yes Hx Depression: Yes Hx Substance Use: No - Surgical History Other/Comment: kidney tumor. and unknown abdominal surgery - Anesthesia Hx Anesthesia: Yes Hx Anesthesia Reactions: No Hx Malignant Hyperthermia: No - Suicidal Assessment Feels Threatened In Home Enviroment: No Family/Social History - Physician Review Nursing Documentation Reviewed: Yes Family/Social History: Unknown Family HX Smoking Status: Never Smoked Hx Alcohol Use: No Hx Substance Use: No Hx Substance Use Treatment: No Allergies/Home Meds Allergies/Adverse Reactions: Allergies No Known Allergies Allergy (Verified 07/03/18 11:44) Home Medications: Home Meds Medication Instructions Recorded Confirmed Atorvastatin [Lipitor] 20 mg PO DAILY 11/01/16 02/06/18 Insulin Lispro [Humalog (Insulin 100 unit SQ AC 11/01/16 02/06/18 Lispro)] Valsartan [Diovan] 160 mg PO DAILY 11/01/16 02/06/18 Insulin Glargine,Hum.rec.anlog 20 unit SQ HS 06/12/17 02/06/18 [Basaglar Kwikpen U-100] Insulin Lispro [Humalog Kwikpen 15 unit SQ TID 06/12/17 02/06/18 U-100] Omeprazole 40 mg PO DAILY 06/12/17 02/06/18 Spironolactone [Aldactone] 25 mg PO DAILY 06/12/17 02/06/18 metFORMIN [glucOPHAGE] 500 mg PO BID 06/12/17 02/06/18 Review of Systems - Physician Review All systems were reviewed & negative as marked: Yes - Review of Systems Constitutional: Normal Eyes: Normal ENT: Normal Respiratory: Normal Cardiovascular: Normal Gastrointestinal: Abdominal Pain, Diarrhea, Nausea, Vomiting. absent: Constipation, Hematochezia, Hematemesis Genitourinary Female: Normal Musculoskeletal: Normal Skin: Normal Neurological: Normal Endocrine: Normal Hemo/Lymphatic: Normal Psychiatric: Normal Physical Exam Vital Signs Reviewed: Yes Vital Signs Temp Pulse Resp BP Pulse Ox 07/04/18 00:01 98.4 F 58 L 18 107/74 96 Temperature: Afebrile Blood Pressure: Normal Pulse: Regular Respiratory Rate: Normal Appearance: Positive for: Well-Appearing, Non-Toxic, Comfortable Pain Distress: None Mental Status: Positive for: Alert and Oriented X 3 - Systems Exam Head: Present: Atraumatic, Normocephalic Pupils: Present: PERRL Extroacular Muscles: Present: EOMI Conjunctiva: Present: Normal Mouth: Present: Moist Mucous Membranes Neck: Present: Normal Range of Motion Respiratory/Chest: Present: Clear to Auscultation, Good Air Exchange. No: Respiratory Distress, Accessory Muscle Use Cardiovascular: Present: Regular Rate and Rhythm, Normal S1, S2. No: Murmurs Abdomen: Present: Tenderness (RUQ), Normal Bowel Sounds, Other (soft). No: Distention, Peritoneal Signs, Rebound, Guarding, McBurney's Point Tender, Rovsing's Sign Present Back: Present: Normal Inspection Upper Extremity: Present: Normal Inspection. No: Cyanosis, Edema Lower Extremity: Present: Normal Inspection. No: Edema Neurological: Present: GCS=15, CN II-XII Intact, Speech Normal Skin: Present: Warm, Dry, Normal Color. No: Rashes Psychiatric: Present: Alert, Oriented x 3, Normal Insight, Normal Concentration Medical Decision Making ED Course and Treatment: 07/04/18 00:31 55yo female in ED for RUQ pain with associated nausea, vomiting and diarrhea. Labs reordered Zofran, pepcid and 1L Ns Pt's chart was reviewed and she signed out earlier today from the floor. She had CXR and EKG and will not be ordered on this visit. She presented for same pain. she will be re admitted for evaluation by a GI Case was FILIBERTO Glover and he accepted pt for admission - Medication Orders Current Medication Orders: Sodium Chloride (Sodium Chloride 0.9%) 1,000 mls @ 1,000 mls/hr IV .Q1H STA Stop: 07/04/18 01:10 Discontinued Medications Famotidine (Pepcid) 20 mg IVP STAT STA Stop: 07/04/18 00:12 Ondansetron HCl (Zofran Inj) 4 mg IVP STAT STA Stop: 07/04/18 00:12 Disposition/Present on Arrival - Present on Arrival Any Indicators Present on Arrival: No History of DVT/PE: No History of Uncontrolled Diabetes: No Urinary Catheter: No History of Decub. Ulcer: No History Surgical Site Infection Following: None - Disposition Have Diagnosis and Disposition been Completed?: Yes Diagnosis: Abdominal pain Disposition: HOSPITALIZED Disposition Time: 12:20 Patient Plan: Admission Condition: STABLE Referrals: Ladi Salazar MD [Primary Care Provider] - Follow up with primary Forms: [employer] (I[place]ic)
--- NOTE | 2018-07-04 01:15 | CP.PCM.HP ---
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 She reports daughter is mentally delayed and allows chronic supervision. She denies any interim change in symptoms/ presentation relative to her last admission / time of AMA. Of note, this is the second time the patient has AMA'd from the facility and returned in less than 24 hours after admission; she was previously admitted on 06/29 eloped w/o AMA paperwork and has returned every day since. As per 07/03 H&P: CC: Abdominal Pain 55 Guyanese speaking female w/ a PMH of PUD, DM, HTN, anxiety, renal tumor, SBO, had presented to [facility] on 06/29-- for c/o on abdominal pain. On 07/02, she returned to ED after an updated read of her abd xray on 07/01 showed an early partial bowel obstruction. Upon evaluation patient has been complaining of RLQ pain x4 days; she reported that hte pain is sharp, worse w/ eating. She reports her appetite has been worsening for 7 days. She has associated N/V w/ 4 episodes of NBNB vomitus. She reports x3 episodes of NB diarrhea week ago when she was eating last week. Denies any hematochezia however does report melena one month ago. Remainder of 12 system ROS Is negative at this time. PMD: [place] PMH: as above PSH: Cholecystectomy, Kidney tumor resection (non malignant as per patient), Small intestine surgery? Channel Specialist: Menopause in 2009; no reports of vaginal bleeding since then Fam Hx: Breast CA Present on Admission - Present on Admission Any Indicators Present on Admission: No Review of Systems - Review of Systems All systems: reviewed and no additional remarkable complaints except Review of Systems: as per HPI Past Patient History - Infectious Disease Hx of Infectious Diseases: None - Tetanus Immunizations Tetanus Immunization: Unknown - Past Medical History & Family History Past Medical History?: Yes - Past Social History Smoking Status: Never Smoked - CARDIAC Hx Cardiac Disorders: Yes Hx Hypertension: Yes - PULMONARY Hx Respiratory Disorders: No - NEUROLOGICAL Hx Neurological Disorder: No - HEENT Hx HEENT Problems: No - RENAL Hx Chronic Kidney Disease: Yes Other/Comment: renal tumor - ENDOCRINE/METABOLIC Hx Diabetes Mellitus Type 2: Yes - HEMATOLOGICAL/ONCOLOGICAL Hx Blood Disorders: No - INTEGUMENTARY Hx Dermatological Problems: No - MUSCULOSKELETAL/RHEUMATOLOGICAL Hx Musculoskeletal Disorders: No - GASTROINTESTINAL Hx Gastrointestinal Disorders: No - GENITOURINARY/GYNECOLOGICAL Hx Genitourinary Disorders: No - PSYCHIATRIC Hx Psychophysiologic Disorder: Yes Hx Anxiety: Yes Hx Depression: Yes Hx Substance Use: No - SURGICAL HISTORY Other/Comment: kidney tumor. and unknown abdominal surgery - ANESTHESIA Hx Anesthesia: Yes Hx Anesthesia Reactions: No Hx Malignant Hyperthermia: No Meds Allergies/Adverse Reactions: Allergies Allergy/AdvReac Type Severity Reaction Status Date / Time No Known Allergies Allergy Verified 07/03/18 11:44 Physical Exam - Constitutional Appears: Well, Non-toxic, No Acute Distress - Head Exam Head Exam: ATRAUMATIC, NORMAL INSPECTION, NORMOCEPHALIC - Eye Exam Eye Exam: EOMI, Normal appearance, PERRL Pupil Exam: NORMAL ACCOMODATION, PERRL - ENT Exam ENT Exam: Mucous Membranes Moist, Normal Exam - Neck Exam Neck exam: Positive for: Normal Inspection - Respiratory Exam Respiratory Exam: Clear to Auscultation Bilateral, NORMAL BREATHING PATTERN. absent: Rales, Rhonchi, Wheezes - Cardiovascular Exam Cardiovascular Exam: REGULAR RHYTHM, RRR, +S1, +S2. absent: Systolic Murmur - GI/Abdominal Exam Additional comments: Upon evaluation of the abdomen, it is grossly obese, with normoactive bowel sings. there are multiple surgical scars appreciate along the the abdominal midline. Nemo sign is negative There is initialy some tenderness in the RLQ however after distracting the patient, the pain seems to subside. No suprapubic tenderness appreciate; remaining quadrants are non tender. Due to her habitus, it is difficult to palpate any intraabdominal masses; however grossly there appear to be none on palpation. - Back Exam Back exam: absent: CVA tenderness (L), CVA tenderness (R) - Neurological Exam Neurological exam: Alert, CN II-XII Intact, Oriented x3 - Psychiatric Exam Psychiatric exam: Normal Affect, Normal Mood - Skin Skin Exam: Dry, Intact, Normal Color, Warm Results - Vital Signs Recent Vital Signs: Last Vital Signs Temp 98.4 F 07/04/18 00:01 Pulse 58 L 07/04/18 00:01 Resp 18 07/04/18 00:01 BP 107/74 07/04/18 00:01 Pulse Ox 96 07/04/18 00:01 - Labs Result Diagrams: 07/04/18 00:50 07/04/18 00:50 Assessment & Plan - Assessment and Plan (Free Text) Assessment: 55 Guyanese speaking female w/ a PMH of PUD, DM, HTN, anxiety, renal tumor, SBO, had presented to [facility] on 06/29,, for c/o on abdominal pain. Patient has been admitted twice and has AMA'd twice for social situations. On 07/02, she returned to ED after an updated read of her abd xray on 07/01 showed an early partial bowel obstruction. She returned again on 07/04 to complete her workup. PLAN: Abdominal Pain: PUD vs Partial Bowel Obstruction vs R adnexal inflammation/ R ovarian cyst CTAP Official read: IMPRESSION:Mild small-bowel distention in the central abdomen compatible with ileus. Findings appear new since yesterday's exam. R ovarian cyst was not noted on official read; however it was visible on self read Transvaginal US pending / Pelvic US pending Gallbladder/ Hepatic US - No active disease IV abx - Flagyl + Rocephin Protonix 40 mg IVP FOBT negative NPO except meds NS 75cc/hr GI Consulted, appreciate reccs PROTEIN SPECIALIST Consulted, appreciate reccs Anemia - Normocytic B12 Folate both wnl Iron TIBC both wnl Ferritin wnl Reticulocyte index 1.79 - hypoproliferative FOBT on exam was negative GI consulted, appreciate reccs Hx DM ISS Low Q6 Accucheck Q6 Hx HTN No home RX? Monitor and address as needed GI/DVT PPX: Protonix/ Heparin Patient was seen examined and discussed w/ attending Dr. Belen Neumann DO PGY1 - Internal Medicine English Adjunct Faculty - Date & Time Date: 07/04/18 Time: 03:20 <Abimbola Glover - Last Filed: 07/04/18 06:52> Results - Vital Signs Recent Vital Signs: Last Vital Signs Temp 97.9 F 07/04/18 03:46 Pulse 57 L 07/04/18 03:46 Resp 20 07/04/18 03:46 BP 131/77 07/04/18 03:46 Pulse Ox 97 07/04/18 03:46 - Labs Result Diagrams: 07/04/18 00:50 07/04/18 00:50 Labs: Laboratory Results - last 24 hr 07/04/18 07/04/18 07/04/18 00:50 00:50 00:50 WBC 8.3 D RBC 3.63 Hgb 9.4 L Hct 30.8 L MCV 84.8 MCH 25.9 MCHC 30.5 L RDW 14.4 Plt Count 251 MPV 9.9 Gran % 67.7 Lymph % (Auto) 21.7 L [place] % (Auto) 7.2 H Eos % (Auto) 3.0 Baso % (Auto) 0.4 Gran # 5.63 Lymph # (Auto) 1.8 [place] # (Auto) 0.6 Eos # (Auto) 0.3 Baso # (Auto) 0.03 PT 11.3 INR 0.99 APTT 32.1 Sodium 141 Potassium 3.5 L Chloride 107 Carbon Dioxide 26 Anion Gap 11 BUN 8 Creatinine 1.0 Est GFR ( Amer) > 60 Est GFR (Non-Af Amer) 58 POC Glucose (mg/dL) Random Glucose 106 Calcium 8.9 Magnesium 1.9 Total Bilirubin 0.6 AST 44 H D ALT 61 H Alkaline Phosphatase 81 Total Protein 6.9 Albumin 3.9 Globulin 3.0 Albumin/Globulin Ratio 1.3 Lipase 167 07/04/18 06:33 WBC RBC Hgb Hct MCV MCH MCHC RDW Plt Count MPV Gran % Lymph % (Auto) [place] % (Auto) Eos % (Auto) Baso % (Auto) Gran # Lymph # (Auto) [place] # (Auto) Eos # (Auto) Baso # (Auto) PT INR APTT Sodium Potassium Chloride Carbon Dioxide Anion Gap BUN Creatinine Est GFR ( Amer) Est GFR (Non-Af Amer) POC Glucose (mg/dL) 85 Random Glucose Calcium Magnesium Total Bilirubin AST ALT Alkaline Phosphatase Total Protein Albumin Globulin Albumin/Globulin Ratio Lipase Attending/Attestation - Attestation I have personally seen and examined this patient.: Yes I have fully participated in the care of the patient.: Yes I have reviewed all pertinent clinical information: Yes Notes (Text): 07/04/18 06:52 Tenderness at RLQ and McBurney's point. SX to evaluate.
[2018-07-04 01:19] LABS: BASO # 0.03 K/mm3 (0.0-2.0); BASO % 0.4 % (0.0-3.0); EOS # 0.3 (0.0-0.7); GRAN # 5.63 (1.4-6.5); GRAN % 67.7 % (50.0-68.0); HEMOGLOBIN 9.4 g/dL (12.0-16.0); LYMPH # 1.8 (1.2-3.4); LYMPH % 21.7 % (22.0-35.0); MEAN CELL VOLUME 84.8 fl (80.0-105.0); MEAN CORPUSCULAR HEMOGLOBIN 25.9 pg (25.0-35.0); MEAN CORPUSCULAR HGB CONC 30.5 g/dl (31.0-37.0); MEAN PLATELET VOLUME 9.9 fl (7.0-11.0); MONO # 0.6 (0.1-0.6); MONO % 7.2 % (1.0-6.0); RBC 3.63 10^6/uL (3.5-6.1); RED CELL DISTRIBUTION WIDTH 14.4 % (11.5-14.5); WHITE BLOOD COUNT 8.3 10^3/uL (4.5-11.0)
[2018-07-04 01:27] LABS: INR 0.99; PARTIAL THROMBOPLASTIN TIME 32.1 Seconds (25.1-36.5); PROTHROMBIN TIME 11.3 SECONDS (9.4-12.5)
[2018-07-04 01:30] LABS: ALB/GLOB RATIO 1.3 (1.1-1.8); ALBUMIN 3.9 g/dL (3.0-4.8); ALT/SGPT 61 U/L (7-56); AST/SGOT 44 U/L (14-36); BLOOD UREA NITROGEN 8 mg/dL (7-21); CALCIUM 8.9 mg/dL (8.4-10.5); GFR NON-AFRICAN AMERICAN 58; LIPASE 167 U/L (23-300)
[2018-07-04] MEDS ORDERED: Influenza Vaccine 60 mcg/0.5 mL SYR (4YR UP) IM ONE (03:38)
[2018-07-04] MEDS ORDERED: Pneumococcal 23-Valent Vaccine IM ONE (03:38)
[2018-07-04 03:50] VITALS: RESP 20
[2018-07-04] MEDS: metroNIDAZOLE IV 500 mg/100 ml 500 MG/100 ML BAG IVPB SCH ×2 (05:58→14:41)
--- NOTE | 2018-07-04 06:49 | CP.PCM.CON ---
History of Present Illness - History of Present Illness History of Present Illness: General Surgery Consult for Dr. Wilkinson Reason for consult: RLQ tenderness on exam CC: RMQ and RLQ abdominal pain HPI: Patient is a 55 y/o female with extensive past surgical history presents complaining of RMQ to RLQ abdominal pain that has been present for the past couple of days. She reports the pain as sharp stabbing in nature. She denies any exacerbating factors. She states she has not been able to eat for the past 7 days due to the pain although eating does not make the pain worse. She reports 3-4 episodes of nonbloody nonbilious emesis today associated with the pain. She states she has chronic diarrhea when she does eat but has not had a bowel movement over the past 7 days because she has not eaten. No blood or black stools. She denies f/c. She reports having a prior colonoscopy in the past which she states they removed a few polyps but were all benign. PMH: PUD, DM, HTN, anxiety, renal tumor, SBO, PSH: ex lap, r renal tumor removal, small bowel resection (SBO), cholecystectomy Social: denies toxic habits Review of Systems - Review of Systems All systems: reviewed and no additional remarkable complaints except Past Patient History - Infectious Disease Hx of Infectious Diseases: None - Tetanus Immunizations Tetanus Immunization: Unknown - Past Medical History & Family History Past Medical History?: Yes - Past Social History Smoking Status: Never Smoked - CARDIAC Hx Cardiac Disorders: Yes Hx Hypertension: Yes - PULMONARY Hx Respiratory Disorders: No - NEUROLOGICAL Hx Neurological Disorder: No - HEENT Hx HEENT Problems: No - RENAL Hx Chronic Kidney Disease: Yes Other/Comment: renal tumor - ENDOCRINE/METABOLIC Hx Diabetes Mellitus Type 2: Yes - HEMATOLOGICAL/ONCOLOGICAL Hx Blood Disorders: No - INTEGUMENTARY Hx Dermatological Problems: No - MUSCULOSKELETAL/RHEUMATOLOGICAL Hx Musculoskeletal Disorders: No - GASTROINTESTINAL Hx Gastrointestinal Disorders: No - GENITOURINARY/GYNECOLOGICAL Hx Genitourinary Disorders: No - PSYCHIATRIC Hx Psychophysiologic Disorder: Yes Hx Anxiety: Yes Hx Depression: Yes Hx Substance Use: No - SURGICAL HISTORY Other/Comment: kidney tumor. and unknown abdominal surgery - ANESTHESIA Hx Anesthesia: Yes Hx Anesthesia Reactions: No Hx Malignant Hyperthermia: No Meds Allergies/Adverse Reactions: Allergies Allergy/AdvReac Type Severity Reaction Status Date / Time No Known Allergies Allergy Verified 07/03/18 11:44 - Medications Medications: Current Medications Heparin Sodium (Porcine) (Heparin) 5,000 units SC Q12 JILL; Protocol Metronidazole (Flagyl) 500 mg in 100 mls @ 100 mls/hr IVPB Q8 JILL; Protocol Last Admin: 07/04/18 05:58 Dose: 100 mls/hr Ceftriaxone Sodium (Rocephin 1 Gram Ivpb) 1 gm in 100 mls @ 100 mls/hr IVPB DAILY JILL; Protocol Insulin Human Regular (Humulin R Low) 0 units SC Q6H JILL; Protocol Pantoprazole Sodium (Protonix Inj) 40 mg IVP DAILY JILL Physical Exam - Constitutional Additional comments: - Constitutional Appears: Non-toxic, No Acute Distress - Head Exam Head Exam: ATRAUMATIC, NORMOCEPHALIC - Eye Exam Eye Exam: EOMI, Normal appearance - ENT Exam ENT Exam: Mucous Membranes Moist - Respiratory Exam Respiratory Exam: NORMAL BREATHING PATTERN. absent: Respiratory Distress - Cardiovascular Exam Cardiovascular Exam: REGULAR RHYTHM. absent: Tachycardia - GI/Abdominal Exam GI & Abdominal Exam: Hernia (non tender to palpation, reducible ), Soft, Tenderness (RLQ, voluntary gaurding ). absent: Distended, Guarding, Rebound, Rigid Additional comments: multiple abdominal scars, midline well healed - Rectal Exam Rectal Exam: Deferred - Extremities Exam Extremities exam: Positive for: normal inspection. Negative for: calf tenderness - Neurological Exam Neurological exam: Alert, Oriented x3 - Psychiatric Exam Psychiatric exam: Normal Affect, Normal Mood - Skin Skin Exam: Dry, Normal Color, Warm Results - Vital Signs Recent Vital Signs: Last Vital Signs Temp 97.9 F 07/04/18 03:46 Pulse 57 L 07/04/18 03:46 Resp 20 07/04/18 03:46 BP 131/77 07/04/18 03:46 Pulse Ox 97 07/04/18 03:46 - Labs Result Diagrams: 07/04/18 00:50 07/04/18 00:50 Labs: Laboratory Results - last 24 hr 07/04/18 07/04/18 07/04/18 00:50 00:50 00:50 WBC 8.3 D RBC 3.63 Hgb 9.4 L Hct 30.8 L MCV 84.8 MCH 25.9 MCHC 30.5 L RDW 14.4 Plt Count 251 MPV 9.9 Gran % 67.7 Lymph % (Auto) 21.7 L [place] % (Auto) 7.2 H Eos % (Auto) 3.0 Baso % (Auto) 0.4 Gran # 5.63 Lymph # (Auto) 1.8 [place] # (Auto) 0.6 Eos # (Auto) 0.3 Baso # (Auto) 0.03 PT 11.3 INR 0.99 APTT 32.1 Sodium 141 Potassium 3.5 L Chloride 107 Carbon Dioxide 26 Anion Gap 11 BUN 8 Creatinine 1.0 Est GFR ( Amer) > 60 Est GFR (Non-Af Amer) 58 Random Glucose 106 Calcium 8.9 Magnesium 1.9 Total Bilirubin 0.6 AST 44 H D ALT 61 H Alkaline Phosphatase 81 Total Protein 6.9 Albumin 3.9 Globulin 3.0 Albumin/Globulin Ratio 1.3 Lipase 167 Assessment & Plan - Assessment and Plan (Free Text) Assessment: 55 y/o female w/ persistent abdominal pain right sided Plan: -poss. 2/2 constipation vs adnexal in origin vs incisional hernia pain -bowel regimen -hernias reducible and nontender, so most likely not etiology of pain -may need GI consult -further recs per Dr. Minh Sheehan PGY3
[2018-07-04 07:21] LABS: BASO # 0.01 K/mm3 (0.0-2.0); BASO % 0.2 % (0.0-3.0); EOS # 0.2 (0.0-0.7); EOS % 3.4 % (1.5-5.0); GRAN # 3.8 (1.4-6.5); GRAN % 64.2 % (50.0-68.0); LYMPH # 1.5 (1.2-3.4); LYMPH % 24.9 % (22.0-35.0); MEAN CELL VOLUME 84.9 fl (80.0-105.0); MEAN CORPUSCULAR HEMOGLOBIN 26.6 pg (25.0-35.0); MEAN CORPUSCULAR HGB CONC 31.4 g/dl (31.0-37.0); MEAN PLATELET VOLUME 9.6 fl (7.0-11.0); MONO # 0.4 (0.1-0.6); MONO % 7.3 % (1.0-6.0); RBC 3.38 10^6/uL (3.5-6.1); RED CELL DISTRIBUTION WIDTH 14.4 % (11.5-14.5); WHITE BLOOD COUNT 5.9 10^3/uL (4.5-11.0)
[2018-07-04 07:45] LABS: ALB/GLOB RATIO 1.2 (1.1-1.8); ALBUMIN 3.2 g/dL (3.0-4.8); ALT/SGPT 50 U/L (7-56); AST/SGOT 31 U/L (14-36); BLOOD UREA NITROGEN 7 mg/dL (7-21); CALCIUM 8.1 mg/dL (8.4-10.5); GFR NON-AFRICAN AMERICAN > 60
[2018-07-04] MEDS ORDERED: cefTRIAXone 1 gm 1 GM/100 ML BAG IVPB SCH (10:00)
[2018-07-04] MEDS: Insulin Reg-LOW-Coverage SC SCH ×3 (10:47→21:15)
--- NOTE | 2018-07-04 12:13 | CP.PCM.CON ---
<Dewey Portillo - Last Filed: 07/04/18 12:02> History of Present Illness - History of Present Illness History of Present Illness: PGY-4 GI Fellow Consult Note Pt is a 55 yo Croatian female (history interpreted by daughter at bedside) with h/o PUD, DM, HTN, anxiety, renal tumor, SBO who has presented multiple times over the last few days for diarrhea and abdominal pain; however, she has signed out AMA twice, but returned overnight for further evaluation. Pt reports abd pain and diarrhea for the last 3-4 weeks. Diarrhea is loose, watery brown, 3-4 times per day, seem to be worse with PO intake. Denied any nocturnal symptoms. Abd pain is mostly RLQ, sharp, mostly non-radiating and wo rse with PO intake. She reports some associated NB/NB emesis. She states that she had a CSPY about 1 year ago where she had "some polyps removed." She denied any recent travel, antibiotic use, sick contacts, change in diet, raw food consumption, hematemesisa, melena, dysphagia nor family h/o GI p roblems/malignancy. On ROS, she reports decreased appetite and couple pound weight loss. 12 point ROS negative other than stated above MHx: as above SurgHx: Cholecystectomy, Kidney tumor resection (non malignant as per patient), Small bowel resection for SBO Meds: Reviewed in chart FamHx: Breast CA SocHx: Denied x3 All: NKDA PMD: Joykutty Past Patient History - Infectious Disease Hx of Infectious Diseases: None - Tetanus Immunizations Tetanus Immunization: Unknown - Past Medical History & Family History Past Medical History?: Yes - Past Social History Smoking Status: Never Smoked - CARDIAC Hx Cardiac Disorders: Yes Hx Hypertension: Yes - PULMONARY Hx Respiratory Disorders: No - NEUROLOGICAL Hx Neurological Disorder: No - HEENT Hx HEENT Problems: No - RENAL Hx Chronic Kidney Disease: Yes Other/Comment: renal tumor - ENDOCRINE/METABOLIC Hx Diabetes Mellitus Type 2: Yes - HEMATOLOGICAL/ONCOLOGICAL Hx Blood Disorders: No - INTEGUMENTARY Hx Dermatological Problems: No - MUSCULOSKELETAL/RHEUMATOLOGICAL Hx Musculoskeletal Disorders: No - GASTROINTESTINAL Hx Gastrointestinal Disorders: No - GENITOURINARY/GYNECOLOGICAL Hx Genitourinary Disorders: No - PSYCHIATRIC Hx Psychophysiologic Disorder: Yes Hx Anxiety: Yes Hx Depression: Yes Hx Substance Use: No - SURGICAL HISTORY Other/Comment: kidney tumor. and unknown abdominal surgery - ANESTHESIA Hx Anesthesia: Yes Hx Anesthesia Reactions: No Hx Malignant Hyperthermia: No Meds Allergies/Adverse Reactions: Allergies Allergy/AdvReac Type Severity Reaction Status Date / Time No Known Allergies Allergy Verified 07/03/18 11:44 - Medications Medications: Current Medications Heparin Sodium (Porcine) (Heparin) 5,000 units SC Q12 JILL; Protocol Last Admin: 07/04/18 10:51 Dose: 5,000 units Metronidazole (Flagyl) 500 mg in 100 mls @ 100 mls/hr IVPB Q8 JILL; Protocol Last Admin: 07/04/18 05:58 Dose: 100 mls/hr Ceftriaxone Sodium (Rocephin 1 Gram Ivpb) 1 gm in 100 mls @ 100 mls/hr IVPB DAILY JILL; Protocol Stop: 07/08/18 10:59 Last Admin: 07/04/18 10:51 Dose: 100 mls/hr Insulin Human Regular (Humulin R Low) 0 units SC Q6H JILL; Protocol Last Admin: 07/04/18 10:47 Dose: Not Given Pantoprazole Sodium (Protonix Inj) 40 mg IVP DAILY JILL Last Admin: 07/04/18 10:51 Dose: 40 mg Physical Exam - Constitutional Appears: Well, No Acute Distress - Head Exam Head Exam: ATRAUMATIC, NORMAL INSPECTION - Eye Exam Eye Exam: EOMI. absent: Conjunctival injection, Scleral icterus - ENT Exam ENT Exam: Mucous Membranes Moist, Normal External Ear Exam. absent: Mucous Membranes Dry - Respiratory Exam Respiratory Exam: Clear to Auscultation Bilateral, NORMAL BREATHING PATTERN. absent: Accessory Muscle Use, Respiratory Distress - Cardiovascular Exam Cardiovascular Exam: REGULAR RHYTHM, RRR - GI/Abdominal Exam GI & Abdominal Exam: Hernia (mildine, reducible), Normal Bowel Sounds, Soft, Tenderness (ttp in RLQ w/o guarding). absent: Bruit, Diminished Bowel Sounds, Distended, Firm, Guarding, Organomegaly, Pulsatile Mass, Rebound, Rigid - Rectal Exam Rectal Exam: Deferred - Extremities Exam Extremities exam: Positive for: normal inspection. Negative for: pedal edema - Neurological Exam Neurological exam: Alert, CN II-XII Intact - Psychiatric Exam Psychiatric exam: Anxious, Flat Affect - Skin Skin Exam: Normal Color, Warm Results - Vital Signs Recent Vital Signs: Last Vital Signs Temp 97.6 F 07/04/18 07:51 Pulse 58 L 07/04/18 07:51 Resp 20 07/04/18 07:51 BP 114/72 07/04/18 07:51 Pulse Ox 96 07/04/18 07:51 - Labs Result Diagrams: 07/04/18 07:00 07/04/18 07:00 Labs: Laboratory Results - last 24 hr 07/04/18 07/04/18 07/04/18 00:50 00:50 00:50 WBC 8.3 D RBC 3.63 Hgb 9.4 L Hct 30.8 L MCV 84.8 MCH 25.9 MCHC 30.5 L RDW 14.4 Plt Count 251 MPV 9.9 Gran % 67.7 Lymph % (Auto) 21.7 L Mchenry % (Auto) 7.2 H Eos % (Auto) 3.0 Baso % (Auto) 0.4 Gran # 5.63 Lymph # (Auto) 1.8 Mchenry # (Auto) 0.6 Eos # (Auto) 0.3 Baso # (Auto) 0.03 PT 11.3 INR 0.99 APTT 32.1 Sodium 141 Potassium 3.5 L Chloride 107 Carbon Dioxide 26 Anion Gap 11 BUN 8 Creatinine 1.0 Est GFR ( Amer) > 60 Est GFR (Non-Af Amer) 58 POC Glucose (mg/dL) Random Glucose 106 Calcium 8.9 Phosphorus Magnesium 1.9 Total Bilirubin 0.6 AST 44 H D ALT 61 H Alkaline Phosphatase 81 Total Protein 6.9 Albumin 3.9 Globulin 3.0 Albumin/Globulin Ratio 1.3 Lipase 167 07/04/18 07/04/18 07/04/18 06:33 07:00 07:00 WBC 5.9 D RBC 3.38 L Hgb 9.0 L Hct 28.7 L MCV 84.9 MCH 26.6 MCHC 31.4 RDW 14.4 Plt Count 197 MPV 9.6 Gran % 64.2 Lymph % (Auto) 24.9 Mchenry % (Auto) 7.3 H Eos % (Auto) 3.4 Baso % (Auto) 0.2 Gran # 3.80 Lymph # (Auto) 1.5 Mchenry # (Auto) 0.4 Eos # (Auto) 0.2 Baso # (Auto) 0.01 PT INR APTT Sodium 141 Potassium 3.3 L Chloride 109 H Carbon Dioxide 27 Anion Gap 8 L BUN 7 Creatinine 0.9 Est GFR ( Amer) > 60 Est GFR (Non-Af Amer) > 60 POC Glucose (mg/dL) 85 Random Glucose 94 Calcium 8.1 L Phosphorus 4.0 Magnesium 2.0 Total Bilirubin 0.5 AST 31 ALT 50 Alkaline Phosphatase 60 Total Protein 6.0 Albumin 3.2 Globulin 2.8 Albumin/Globulin Ratio 1.2 Lipase 07/04/18 11:16 WBC RBC Hgb Hct MCV MCH MCHC RDW Plt Count MPV Gran % Lymph % (Auto) Mchenry % (Auto) Eos % (Auto) Baso % (Auto) Gran # Lymph # (Auto) Mchenry # (Auto) Eos # (Auto) Baso # (Auto) PT INR APTT Sodium Potassium Chloride Carbon Dioxide Anion Gap BUN Creatinine Est GFR ( Amer) Est GFR (Non-Af Amer) POC Glucose (mg/dL) 83 Random Glucose Calcium Phosphorus Magnesium Total Bilirubin AST ALT Alkaline Phosphatase Total Protein Albumin Globulin Albumin/Globulin Ratio Lipase Assessment & Plan - Assessment and Plan (Free Text) Assessment: 55 yo Croatian Female with HTN, DM, Anxiety, h/o SBO, renal tumor resection, diverticulosis presenting with abd pain and diarrhea. # Acute Abd Pain, Diarrhea: Unclear etiology. Symptoms for almost the last 30 days per patient report. Worse with PO intake and denied nocturnal symptoms. No SIRs criteria. No clear infectious source as patient did not report urinary symptoms. Gen Surg consulted and hernia and appendicitis not believe to be the cause. No signs of SBO on CT after intial radiograph concerning for early SBO. Plan: - Supportive/symptomatic care - Cont PPI daily - Check Cdiff - ADAT with Full Liq - Consider DCing antibiotics as no clear source at this time - If tolerating diet and symptoms persist, can have further OP w/u of chronic diarrhea Thank you for the consult. Will sign off. Please call if questions. Pt discussed with Dr. Lanier. See attestation for further recs/changes. <Nicanor Lanier Y - Last Filed: 07/04/18 12:28> Meds - Medications Medications: Current Medications Heparin Sodium (Porcine) (Heparin) 5,000 units SC Q12 JILL; Protocol Last Admin: 07/04/18 10:51 Dose: 5,000 units Metronidazole (Flagyl) 500 mg in 100 mls @ 100 mls/hr IVPB Q8 JILL; Protocol Last Admin: 07/04/18 05:58 Dose: 100 mls/hr Ceftriaxone Sodium (Rocephin 1 Gram Ivpb) 1 gm in 100 mls @ 100 mls/hr IVPB DAILY JILL; Protocol Stop: 07/08/18 10:59 Last Admin: 07/04/18 10:51 Dose: 100 mls/hr Insulin Human Regular (Humulin R Low) 0 units SC Q6H JILL; Protocol Last Admin: 07/04/18 10:47 Dose: Not Given Pantoprazole Sodium (Protonix Inj) 40 mg IVP DAILY JILL Last Admin: 07/04/18 10:51 Dose: 40 mg Results - Vital Signs Recent Vital Signs: Last Vital Signs Temp 97.6 F 07/04/18 07:51 Pulse 58 L 07/04/18 07:51 Resp 20 07/04/18 07:51 BP 114/72 07/04/18 07:51 Pulse Ox 96 07/04/18 07:51 - Labs Result Diagrams: 07/04/18 07:00 07/04/18 07:00 Labs: Laboratory Results - last 24 hr 07/04/18 07/04/18 07/04/18 00:50 00:50 00:50 WBC 8.3 D RBC 3.63 Hgb 9.4 L Hct 30.8 L MCV 84.8 MCH 25.9 MCHC 30.5 L RDW 14.4 Plt Count 251 MPV 9.9 Gran % 67.7 Lymph % (Auto) 21.7 L Mchenry % (Auto) 7.2 H Eos % (Auto) 3.0 Baso % (Auto) 0.4 Gran # 5.63 Lymph # (Auto) 1.8 Mchenry # (Auto) 0.6 Eos # (Auto) 0.3 Baso # (Auto) 0.03 PT 11.3 INR 0.99 APTT 32.1 Sodium 141 Potassium 3.5 L Chloride 107 Carbon Dioxide 26 Anion Gap 11 BUN 8 Creatinine 1.0 Est GFR ( Amer) > 60 Est GFR (Non-Af Amer) 58 POC Glucose (mg/dL) Random Glucose 106 Calcium 8.9 Phosphorus Magnesium 1.9 Total Bilirubin 0.6 AST 44 H D ALT 61 H Alkaline Phosphatase 81 Total Protein 6.9 Albumin 3.9 Globulin 3.0 Albumin/Globulin Ratio 1.3 Lipase 167 07/04/18 07/04/18 07/04/18 06:33 07:00 07:00 WBC 5.9 D RBC 3.38 L Hgb 9.0 L Hct 28.7 L MCV 84.9 MCH 26.6 MCHC 31.4 RDW 14.4 Plt Count 197 MPV 9.6 Gran % 64.2 Lymph % (Auto) 24.9 Mchenry % (Auto) 7.3 H Eos % (Auto) 3.4 Baso % (Auto) 0.2 Gran # 3.80 Lymph # (Auto) 1.5 Mchenry # (Auto) 0.4 Eos # (Auto) 0.2 Baso # (Auto) 0.01 PT INR APTT Sodium 141 Potassium 3.3 L Chloride 109 H Carbon Dioxide 27 Anion Gap 8 L BUN 7 Creatinine 0.9 Est GFR ( Amer) > 60 Est GFR (Non-Af Amer) > 60 POC Glucose (mg/dL) 85 Random Glucose 94 Calcium 8.1 L Phosphorus 4.0 Magnesium 2.0 Total Bilirubin 0.5 AST 31 ALT 50 Alkaline Phosphatase 60 Total Protein 6.0 Albumin 3.2 Globulin 2.8 Albumin/Globulin Ratio 1.2 Lipase 07/04/18 11:16 WBC RBC Hgb Hct MCV MCH MCHC RDW Plt Count MPV Gran % Lymph % (Auto) Mchenry % (Auto) Eos % (Auto) Baso % (Auto) Gran # Lymph # (Auto) Mchenry # (Auto) Eos # (Auto) Baso # (Auto) PT INR APTT Sodium Potassium Chloride Carbon Dioxide Anion Gap BUN Creatinine Est GFR ( Amer) Est GFR (Non-Af Amer) POC Glucose (mg/dL) 83 Random Glucose Calcium Phosphorus Magnesium Total Bilirubin AST ALT Alkaline Phosphatase Total Protein Albumin Globulin Albumin/Globulin Ratio Lipase Attending/Attestation - Attestation I have fully participated in the care of the patient.: Yes I have reviewed all pertinent clinical information: Yes Notes (Text): 07/04/18 12:26 Patient with history of DM, HTN who presents with complaint of abdominal pain and intermittent diarrhea for past month. No reported rectal bleeding, significant weight loss, fever/chills. She had a colonoscopy 1 year ago which showed a "few" polyps as per patient. CT imaging reviewed by me showing non- specific right sided colon wall thickening. - Diet as tolerated - Obtain stool studies - Continue with antibiotic therapy to complete 5 day course - No planned GI intervention, will sign off case. She would benefit from additional outpatient follow up, please reconsult as necessary, thank you.
--- NOTE | 2018-07-04 15:28 | CP.PCM.PCO ---
Physician Communication Note - Physician Communication Note Physician Communication Note: No surgical intervention at this time. reconsult as needed.
--- NOTE | 2018-07-04 15:33 | US ---
Date of service: 07/04/2018 HISTORY: RLQ pain COMPARISON: None available. TECHNIQUE: Transabdominal ultrasound was performed in evaluation of right lower quadrant pelvic pain. Patient preferred not to undergo endovaginal ultrasonography. FINDINGS: UTERUS: Measures 6.9 x 2.6 x 3.8 cm. Myometrium is nonfocal but mildly inhomogeneous. No definitive lesion associated. ENDOMETRIUM: Measures 3.2 mm in diameter. Unremarkable. CERVIX: No cervical abnormality identified. RIGHT OVARY: Not visualized. No suspicious right adnexal findings. LEFT OVARY: Not visualized. No suspicious left adnexal findings. FREE FLUID: No significant free fluid noted. OTHER FINDINGS: None. IMPRESSION: Uterus cervix and endometrium appear unremarkable without cyst or solid mass associated. Neither adnexal compartment appear suspicious however neither ovary is identified. Patient for not to undergo transvaginal pelvic ultrasonography at this time.
--- NOTE | 2018-07-04 20:57 | CP.PCM.PN ---
<Esvin Mcneal - Last Filed: 07/05/18 02:19> Subjective - Date & Time of Evaluation Date of Evaluation: 07/04/18 Time of Evaluation: 08:50 - Subjective Subjective: PGY-1 Medicine Progress Note for Dr. Acevedo Patient seen and examined at bedside this morning with daughter present. No acute overnight events reported. Patient continues to endorse generalized abdominal pain with associated nausea, no vomiting. Endorses loose BM. No other acute complaints at this time. Of note, patient has left twice AMA within the past week but has returned for further evaluation. Objective - Vital Signs/Intake and Output Vital Signs (last 24 hours): Temp Pulse Resp BP Pulse Ox 97.6 F 58 L 20 114/72 96 07/04/18 07:51 07/04/18 07:51 07/04/18 07:51 07/04/18 07:51 07/04/18 07:51 Intake and Output: 07/04/18 07/05/18 18:59 06:59 Intake Total 960 Output Total 400 Balance 560 - Medications Medications: Current Medications Acetaminophen (Tylenol 325mg Tab) 650 mg PO Q6H PRN PRN Reason: Pain, Mild (1-3) Last Admin: 07/04/18 19:29 Dose: 650 mg Heparin Sodium (Porcine) (Heparin) 5,000 units SC Q12 JILL; Protocol Last Admin: 07/04/18 10:51 Dose: 5,000 units Insulin Human Regular (Humulin R Low) 0 units SC Q6H JILL; Protocol Last Admin: 07/04/18 12:00 Dose: Not Given Pantoprazole Sodium (Protonix Inj) 40 mg IVP DAILY JILL Last Admin: 07/04/18 10:51 Dose: 40 mg - Labs Labs: 07/04/18 07:00 07/04/18 07:00 PT 11.3 SECONDS (9.4-12.5) 07/04/18 00:50 INR 0.99 07/04/18 00:50 APTT 32.1 Seconds (25.1-36.5) 07/04/18 00:50 - Constitutional Appears: Non-toxic, No Acute Distress - Head Exam Head Exam: ATRAUMATIC, NORMAL INSPECTION, NORMOCEPHALIC - Eye Exam Eye Exam: EOMI, Normal appearance - ENT Exam ENT Exam: Mucous Membranes Moist, Normal Exam - Neck Exam Neck Exam: Full ROM, Normal Inspection - Respiratory Exam Respiratory Exam: Clear to Ausculation Bilateral, NORMAL BREATHING PATTERN. absent: Accessory Muscle Use, Rales, Rhonchi, Wheezes, Respiratory Distress, Stridor - Cardiovascular Exam Cardiovascular Exam: REGULAR RHYTHM, +S1, +S2 - GI/Abdominal Exam GI & Abdominal Exam: Soft, Tenderness (mild TTP RUQ, RLQ), Normal Bowel Sounds. absent: Distended, Firm, Guarding, Rigid, Mass, Organomegaly, Rebound - Extremities Exam Extremities Exam: Normal Capillary Refill, Normal Inspection. absent: Calf Tenderness, Pedal Edema - Back Exam Back Exam: NORMAL INSPECTION - Neurological Exam Neurological Exam: Alert, Awake, Normal Gait, Oriented x3 - Psychiatric Exam Psychiatric exam: Anxious, Flat Affect - Skin Skin Exam: Dry, Intact, Normal Color, Warm Assessment and Plan - Assessment and Plan (Free Text) Assessment: 55 Armenian speaking female w/ a PMH of PUD, DM, HTN, anxiety, renal tumor, SBO, had presented to [facility] ED on 06/29,, for c/o on abdominal pain. Patient has been admitted twice and has AMA'd twice for social situations. On 07/02, she returned to ED after an updated read of her abd xray on 07/01 showed an early partial bowel obstruction. She returned again on 07/04 to complete her workup Plan: Abdominal Pain PUD vs Partial Bowel Obstruction vs R adnexal inflammation/ R ovarian cyst CT abdomen/pelvis (07/02): Mild small-bowel distention in the central abdomen compatible with ileus. Findings appear new since yesterday's exam. --FOBT negative --Gallbladder/ Hepatic U/S: No active disease --Pelvis U/S: uterus, cervix, endometrium all unremarkable without cyst or solid mass associated. Neither adnexal compartment appear suspicious, however neither ovary is identified. --Pt chose to not undergo transvaginal u/s --GI recs (Dr. Lanier) appreciated -diet as tolerated -obtain stool studies -no further intervention; would benefit from additional outpatient followup --Gen Surgery (Dr. Wilkinson) appreciated -bowel regimen -hernias reducible and nontender, so most likely not etiology of pain -no further surgical intervention at this time --f/u [employer] (Dr. Ramirez) recs --Protonix 40 mg IVP Anemia - Normocytic --B12, Folate both wnl --Iron, TIBC both wnl --Ferritin wnl --Reticulocyte index 1.79 - hypoproliferative --FOBT on exam was negative --GI consulted, appreciate recs DM --ISS Low Q6 --Accucheck Q6 HTN --No home RX? Monitor and address as needed PPx, Diet, Disposition --DVT: heparin --GI: protonix 40 mg IVP Daily --Diet: clear liquid Case discussed with Dr. Kristina Mcneal DO, PGY-1 <Siva Acevedo - Last Filed: 07/06/18 15:18> Objective - Vital Signs/Intake and Output Vital Signs (last 24 hours): Temp Pulse Resp BP Pulse Ox 97.6 F 55 L 20 130/72 95 07/05/18 21:56 07/05/18 21:56 07/05/18 21:56 07/05/18 21:56 07/05/18 21:56 Intake and Output: 07/06/18 07/06/18 06:59 18:59 Intake Total 800 Balance 800 - Labs Labs: 07/06/18 06:50 07/06/18 06:50 PT 11.3 SECONDS (9.4-12.5) 07/04/18 00:50 INR 0.99 07/04/18 00:50 APTT 32.1 Seconds (25.1-36.5) 07/04/18 00:50 Attending/Attestation - Attestation I have personally seen and examined this patient.: Yes I have fully participated in the care of the patient.: Yes I have reviewed all pertinent clinical information, including history, physical exam and plan: Yes Notes (Text): 07/06/18 15:18 Medical record note made by the resident after discussion with my direction and input after the patient was personally seen and examined by me. I have reviewed the chart and agree that the record accurately reflects by personal performance of the history, physical exam, data review, and medical decision-making, in the course for the patient. I have also personally directed the plan of care.
[2018-07-05] MEDS: Insulin Reg-LOW-Coverage SC SCH ×3 (02:57→22:07)
[2018-07-05 07:18] LABS: BASO # 0.02 K/mm3 (0.0-2.0); BASO % 0.4 % (0.0-3.0); EOS # 0.3 (0.0-0.7); EOS % 4.7 % (1.5-5.0); GRAN # 3.23 (1.4-6.5); GRAN % 60.2 % (50.0-68.0); HEMOGLOBIN 9.8 g/dL (12.0-16.0); LYMPH # 1.5 (1.2-3.4); LYMPH % 27.6 % (22.0-35.0); MEAN CELL VOLUME 85.2 fl (80.0-105.0); MEAN CORPUSCULAR HEMOGLOBIN 26.4 pg (25.0-35.0); MEAN PLATELET VOLUME 10.1 fl (7.0-11.0); MONO # 0.4 (0.1-0.6); MONO % 7.1 % (1.0-6.0); RBC 3.71 10^6/uL (3.5-6.1); RED CELL DISTRIBUTION WIDTH 14.7 % (11.5-14.5); WHITE BLOOD COUNT 5.4 10^3/uL (4.5-11.0)
[2018-07-05 07:29] LABS: ALB/GLOB RATIO 1.3 (1.1-1.8); ALBUMIN 3.7 g/dL (3.0-4.8); ALT/SGPT 47 U/L (7-56); AST/SGOT 27 U/L (14-36); BLOOD UREA NITROGEN 4 mg/dL (7-21); CALCIUM 8.7 mg/dL (8.4-10.5); GFR NON-AFRICAN AMERICAN > 60
[2018-07-05] MEDS ORDERED: Potassium Chloride 20 mEq ER Tab PO ONE (07:33)
--- NOTE | 2018-07-05 14:40 | CP.PCM.PN ---
<Esvin Mcneal - Last Filed: 07/05/18 15:36> Subjective - Date & Time of Evaluation Date of Evaluation: 07/05/18 Time of Evaluation: 08:45 - Subjective Subjective: PGY-1 Medicine Progress Note for Dr. Acevedo Patient seen and examined at bedside. No acute events reported overnight. Continues to endorse L sided abdominal pain, although physical exam is unremarkable. Patient endorses 3 episodes of vomiting in the morning, however none witnessed by nurse. Able to tolerate clear liquid diet, discussed encouraging PO intake and advancement of diet today with monitoring of progression. Objective - Vital Signs/Intake and Output Vital Signs (last 24 hours): Temp Pulse Resp BP Pulse Ox 97.5 F L 70 20 134/86 97 07/05/18 07:57 07/05/18 07:57 07/05/18 07:57 07/05/18 07:57 07/05/18 07:57 Intake and Output: 07/05/18 07/05/18 06:59 18:59 Intake Total 960 0 Output Total 400 Balance 560 0 - Medications Medications: Current Medications Acetaminophen (Tylenol 325mg Tab) 650 mg PO Q6H PRN PRN Reason: Pain, Mild (1-3) Last Admin: 07/05/18 06:04 Dose: 650 mg Heparin Sodium (Porcine) (Heparin) 5,000 units SC Q12 JILL; Protocol Last Admin: 07/05/18 09:33 Dose: 5,000 units Insulin Human Regular (Humulin R Low) 0 units SC Q6H JILL; Protocol Last Admin: 07/05/18 02:57 Dose: Not Given Pantoprazole Sodium (Protonix Inj) 40 mg IVP DAILY JILL Last Admin: 07/05/18 09:33 Dose: 40 mg - Labs Labs: 07/05/18 06:30 07/05/18 06:30 PT 11.3 SECONDS (9.4-12.5) 07/04/18 00:50 INR 0.99 07/04/18 00:50 APTT 32.1 Seconds (25.1-36.5) 07/04/18 00:50 - Constitutional Appears: Non-toxic, No Acute Distress, Unkempt - Head Exam Head Exam: ATRAUMATIC, NORMAL INSPECTION, NORMOCEPHALIC - Eye Exam Eye Exam: EOMI, Normal appearance Pupil Exam: NORMAL ACCOMODATION - ENT Exam ENT Exam: Mucous Membranes Moist, Normal Exam - Neck Exam Neck Exam: Full ROM, Normal Inspection - Respiratory Exam Respiratory Exam: Clear to Ausculation Bilateral, NORMAL BREATHING PATTERN. absent: Rales, Rhonchi, Wheezes, Respiratory Distress, Stridor - Cardiovascular Exam Cardiovascular Exam: REGULAR RHYTHM, +S1, +S2 - GI/Abdominal Exam GI & Abdominal Exam: Soft, Tenderness, Normal Bowel Sounds. absent: Distended, Firm, Guarding, Rigid, Organomegaly - Extremities Exam Extremities Exam: Normal Capillary Refill, Normal Inspection. absent: Calf Tenderness, Pedal Edema - Back Exam Back Exam: NORMAL INSPECTION - Neurological Exam Neurological Exam: Alert, Awake, Normal Gait, Oriented x3 - Psychiatric Exam Psychiatric exam: Anxious, Flat Affect - Skin Skin Exam: Dry, Intact, Normal Color, Warm Assessment and Plan - Assessment and Plan (Free Text) Assessment: 55 Estonian speaking female w/ a PMH of PUD, DM, HTN, anxiety, renal tumor, SBO, had presented to [facility] ED on 06/29,, for c/o on abdominal pain. Patient has been admitted twice and has AMA'd twice for social situations. On 07/02, she returned to ED after an updated read of her abd xray on 07/01 showed an early partial bowel obstruction. She returned again on 07/04 to complete her workup Plan: Abdominal Pain PUD vs Partial Bowel Obstruction vs R adnexal inflammation/ R ovarian cyst CT abdomen/pelvis (07/02): Mild small-bowel distention in the central abdomen compatible with ileus. Findings appear new since yesterday's exam. --FOBT negative --Gallbladder/ Hepatic U/S: No active disease --Pelvis U/S: uterus, cervix, endometrium all unremarkable without cyst or solid mass associated. Neither adnexal compartment appear suspicious, however neither ovary is identified. --Pt chose to not undergo transvaginal u/s --GI recs (Dr. Lanier) appreciated -diet as tolerated -obtain stool studies -no further intervention; would benefit from additional outpatient followup --Gen Surgery (Dr. Wilkinson) appreciated -bowel regimen -hernias reducible and nontender, so most likely not etiology of pain -no further surgical intervention at this time --f/u [employer] (Dr. Ramirez) recs --Protonix 40 mg IVP Anemia - Normocytic --B12, Folate both wnl --Iron, TIBC both wnl --Ferritin wnl --Reticulocyte index 1.79 - hypoproliferative --FOBT on exam was negative --GI consulted, appreciate recs DM --ISS Low Q6 --Accucheck Q6 HTN --No home RX? Monitor and address as needed PPx, Diet, Disposition --DVT: heparin --GI: protonix 40 mg IVP Daily --Diet: advanced to soft, HHD Case discussed with Dr. Kristina Mcneal DO, PGY-1 <Siva Acevedo - Last Filed: 07/06/18 15:12> Objective - Vital Signs/Intake and Output Vital Signs (last 24 hours): Temp Pulse Resp BP Pulse Ox 97.6 F 55 L 20 130/72 95 07/05/18 21:56 07/05/18 21:56 07/05/18 21:56 07/05/18 21:56 07/05/18 21:56 Intake and Output: 07/06/18 07/06/18 06:59 18:59 Intake Total 800 Balance 800 - Labs Labs: 07/06/18 06:50 07/06/18 06:50 PT 11.3 SECONDS (9.4-12.5) 07/04/18 00:50 INR 0.99 07/04/18 00:50 APTT 32.1 Seconds (25.1-36.5) 07/04/18 00:50 Attending/Attestation - Attestation I have personally seen and examined this patient.: Yes I have fully participated in the care of the patient.: Yes I have reviewed all pertinent clinical information, including history, physical exam and plan: Yes Notes (Text): 07/06/18 15:06 Medical record note made by the resident after discussion with my direction and input after the patient was personally seen and examined by me. I have reviewed the chart and agree that the record accurately reflects by personal performance of the history, physical exam, data review, and medical decision-making, in the course for the patient. I have also personally directed the plan of care. 55 yrs old female with PMH of DM, HTN who presents with complaint of abdominal pain and intermittent diarrhea for past month. No reported rectal bleeding, significant weight loss, fever/chills. She had a colonoscopy 1 year ago which showed a "few" polyps as per patient. CT scan of abdomen and Pelvis showed colon wall thickening, Patient symptoms has improved.There is no Nausea or vomiting. There is no diarrhea since last night. Patient is tolerating liquid diet.LFT are back to normal. We will advance diet. 07/06/18 15:09 07/06/18 15:12
[2018-07-05 21:57] VITALS: BP 130/72; PULSE 55; TEMP 97.6; O2SAT 95
[2018-07-05] MEDS: Sodium Chloride 0.9% 1,000 ML IV SCH (22:08)
[2018-07-06 07:10] LABS: BASO # 0.02 K/mm3 (0.0-2.0); BASO % 0.4 % (0.0-3.0); EOS # 0.2 (0.0-0.7); EOS % 4.6 % (1.5-5.0); GRAN # 3.07 (1.4-6.5); GRAN % 61.8 % (50.0-68.0); HEMOGLOBIN 9.6 g/dL (12.0-16.0); LYMPH # 1.3 (1.2-3.4); LYMPH % 26.8 % (22.0-35.0); MEAN CELL VOLUME 85.2 fl (80.0-105.0); MEAN CORPUSCULAR HEMOGLOBIN 26.3 pg (25.0-35.0); MEAN CORPUSCULAR HGB CONC 30.9 g/dl (31.0-37.0); MONO # 0.3 (0.1-0.6); MONO % 6.4 % (1.0-6.0); RBC 3.65 10^6/uL (3.5-6.1); RED CELL DISTRIBUTION WIDTH 14.6 % (11.5-14.5)
[2018-07-06 07:23] LABS: ALB/GLOB RATIO 1.2 (1.1-1.8); ALBUMIN 3.4 g/dL (3.0-4.8); ALT/SGPT 40 U/L (7-56); AST/SGOT 25 U/L (14-36); BLOOD UREA NITROGEN 4 mg/dL (7-21); CALCIUM 8.4 mg/dL (8.4-10.5); GFR NON-AFRICAN AMERICAN > 60
[2018-07-06] MEDS: Insulin Reg-LOW-Coverage SC SCH (09:51)
[2018-07-06] MEDS: Sodium Chloride 0.9% 1,000 ML IV SCH (09:53)
--- NOTE | 2018-07-06 11:19 | CP.PCM.DIS ---
<Esvin Mcneal - Last Filed: 07/06/18 15:58> Provider - Provider Date of Admission: 07/05/18 15:34 Attending physician: Siva Acevedo MD Primary care physician: Ladi Salazar MD Time Spent in preparation of Discharge (in minutes): 40 Hospital Course - Lab Results Lab Results: Most Recent Lab Values WBC 5.0 10^3/uL (4.5-11.0) 07/06/18 06:50 RBC 3.65 10^6/uL (3.5-6.1) 07/06/18 06:50 Hgb 9.6 g/dL (12.0-16.0) L 07/06/18 06:50 Hct 31.1 % (36.0-48.0) L 07/06/18 06:50 MCV 85.2 fl (80.0-105.0) 07/06/18 06:50 MCH 26.3 pg (25.0-35.0) 07/06/18 06:50 MCHC 30.9 g/dl (31.0-37.0) L 07/06/18 06:50 RDW 14.6 % (11.5-14.5) H 07/06/18 06:50 Plt Count 214 10^3/uL (120.0-450.0) 07/06/18 06:50 MPV 10.0 fl (7.0-11.0) 07/06/18 06:50 Gran % 61.8 % (50.0-68.0) 07/06/18 06:50 Lymph % (Auto) 26.8 % (22.0-35.0) 07/06/18 06:50 [place] % (Auto) 6.4 % (1.0-6.0) H 07/06/18 06:50 Eos % (Auto) 4.6 % (1.5-5.0) 07/06/18 06:50 Baso % (Auto) 0.4 % (0.0-3.0) 07/06/18 06:50 Gran # 3.07 (1.4-6.5) 07/06/18 06:50 Lymph # (Auto) 1.3 (1.2-3.4) 07/06/18 06:50 [place] # (Auto) 0.3 (0.1-0.6) 07/06/18 06:50 Eos # (Auto) 0.2 (0.0-0.7) 07/06/18 06:50 Baso # (Auto) 0.02 K/mm3 (0.0-2.0) 07/06/18 06:50 PT 11.3 SECONDS (9.4-12.5) 07/04/18 00:50 INR 0.99 07/04/18 00:50 APTT 32.1 Seconds (25.1-36.5) 07/04/18 00:50 Sodium 141 mmol/L (132-148) 07/06/18 06:50 Potassium 3.9 mmol/L (3.6-5.0) 07/06/18 06:50 Chloride 109 mmol/L (98-107) H 07/06/18 06:50 Carbon Dioxide 26 mmol/L (21-33) 07/06/18 06:50 Anion Gap 11 (10-20) 07/06/18 06:50 BUN 4 mg/dL (7-21) L 07/06/18 06:50 Creatinine 0.9 mg/dl (0.7-1.2) 07/06/18 06:50 Est GFR ( Amer) > 60 07/06/18 06:50 Est GFR (Non-Af Amer) > 60 07/06/18 06:50 POC Glucose (mg/dL) 93 mg/dL (65-110) 07/06/18 06:20 Random Glucose 93 mg/dL (70-110) 07/06/18 06:50 Calcium 8.4 mg/dL (8.4-10.5) 07/06/18 06:50 Phosphorus 4.0 mg/dL (2.5-4.5) 07/04/18 07:00 Magnesium 2.0 mg/dL (1.7-2.2) 07/04/18 07:00 Total Bilirubin 0.7 mg/dL (0.2-1.3) 07/06/18 06:50 AST 25 U/L (14-36) 07/06/18 06:50 ALT 40 U/L (7-56) 07/06/18 06:50 Alkaline Phosphatase 60 U/L (38-126) 07/06/18 06:50 Total Protein 6.3 g/dL (5.8-8.3) 07/06/18 06:50 Albumin 3.4 g/dL (3.0-4.8) 07/06/18 06:50 Globulin 2.9 gm/dL 07/06/18 06:50 Albumin/Globulin Ratio 1.2 (1.1-1.8) 07/06/18 06:50 Lipase 167 U/L (23-300) 07/04/18 00:50 - Hospital Course Hospital Course: HPI: 55 year old Salvadorean speaking female with a past medical history of peptic ulcer disease, diabetes mellitus, hypertension, anxiety, renal tumor, small bowel obstruction, had presented to [facility] ED on 06/29- for complaint of abdominal pain. On 07/02, she returned to ED after an updated read of her abdominal xray on 07/01 showed an early partial bowel obstruction. Upon evaluation patient has been complaining of right lower quadrant pain for 4 days; she reported that the pain is sharp, worse with eating. She reports her appetite has been worsening for 7 days. She has associated nausea/vomiting with 4 episodes of non-bloody, non-bilious vomitus. She reports x3 episodes of non-bloody diarrhea a week ago when she was eating last week. Denies any hematochezia however does report melena one month ago. Remainder of 12 system ROS negative at this time. Of note patient was admitted here last night (07/03) and left against medical advice in the flat [place]ier hours after being admitted due to her daughter being discharged/ daughter leaving against medical advice from voluntary psychiatry unit. She reports daughter is mentally delayed and allows chronic supervision. She denies any interim change in symptoms/ presentation relative to her last admission / time of AMA. Of note, this is the second time the patient has AMA'd from the facility and returned in less than 24 hours after admission; she was previously admitted on 06/29, eloped from hospital without AMA paperwork and has returned every day since. During course of current admission: Gallbladder/hepatic ultrasound demonstrated no active disease. Initial read of the CT abdomen was concerning for possible adnexal inflammation +/- ovarian cyst, therefore pelvic and transvaginal ultrasound were ordered. Patient refused transvaginal ultrasound, pelvic ultrasound demonstrated no acute findings. GI (Dr. Lanier) was consulted, recommended no further intervention at this time with outpatient follow up. Patient's nausea/vomiting/diarrhea clinically improved during course of admission. Patient's diet was advanced during course with no vomiting episodes. Patient remained afebrile on the floor with no leukocytosis. Patient is medically stable for discharge to home, as per Dr. Acevedo. She is instructed to follow up with her primary care provider, Dr. Salazar, within 1 week of discharge. She is also instructed to follow up with outpatient GI within 1 week of discharge for abdominal symptoms. Patient is instructed to take home medications as prescribed. Patient states she has all medications filled at home and does not need scripts at this time. She says she has an appointment with her primary care provider this Tuesday, who p rovides her medications as needed. Patient is instructed to return to the ED if symptoms recur or worsen, which include but are not limited to: worsening abdominal pain, persistent nausea/vomiting/diarrhea. All questions were answered and patient was amenable to plan. The following is a summary of hospital course. For full detail, please refer to EMR. - Date & Time of H&P Date of H&P: 07/06/18 Time of H&P: 11:19 Discharge Exam - Head Exam Head Exam: ATRAUMATIC, NORMAL INSPECTION, NORMOCEPHALIC - Eye Exam Eye Exam: EOMI, Normal appearance - ENT Exam ENT Exam: Mucous Membranes Moist, Normal Exam - Respiratory Exam Respiratory Exam: Clear to PA & Lateral, NORMAL BREATHING PATTERN, UNREMARKABLE. absent: Rales, Rhonchi, Wheezes, Respiratory Distress, Stridor - Cardiovascular Exam Cardiovascular Exam: REGULAR RHYTHM, +S1, +S2 - GI/Abdominal Exam GI & Abdominal Exam: Normal Bowel Sounds, Soft, Tenderness (mild R sided tenderness), Unremarkable. absent: Distended, Firm, Guarding, Rebound, Rigid - Extremities Exam Extremities exam: normal capillary refill, normal inspection, pedal pulses present - Back Exam Back exam: NORMAL INSPECTION - Neurological Exam Neurological exam: Alert, CN II-XII Intact, Normal Gait, Oriented x3 - Psychiatric Exam Psychiatric exam: Anxious, Flat Affect - Skin Skin Exam: Dry, Intact, Normal Color, Warm Discharge Plan - Follow Up Plan Condition: STABLE Disposition: HOME/ ROUTINE Instructions: Heart Healthy Diet, Why Vaccines Are Important for Everyone, Flu Vaccine, Acute Abdominal Pain (DC) Additional Instructions: Patient is medically stable for discharge to home, as per Dr. Acevedo. She is instructed to follow up with her primary care provider, Dr. Salazar, within 1 week of discharge. She is also instructed to follow up with outpatient GI within 1 week of discharge for abdominal symptoms. Patient is instructed to take home medications as prescribed. Patient states she has all medications filled at home and does not need scripts at this time. She says she has an appointment with her primary care provider this Tuesday, who provides her medications as needed. Patient is instructed to return to the ED if symptoms recur or worsen, which include but are not limited to: worsening abdominal pain, persistent nausea/vomiting/diarrhea. All questions were answered and patient was amenable to plan. Referrals: Ladi Salazar MD [Primary Care Provider] - Nicanor Lanier MD [Staff Provider] - <Siva Acevedo - Last Filed: 07/06/18 16:07> Provider - Provider Date of Admission: 07/04/18 00:24 Attending physician: Siva Acevedo MD Primary care physician: Ladi Salazar MD Hospital Course - Lab Results Lab Results: Most Recent Lab Values WBC 5.0 10^3/uL (4.5-11.0) 07/06/18 06:50 RBC 3.65 10^6/uL (3.5-6.1) 07/06/18 06:50 Hgb 9.6 g/dL (12.0-16.0) L 07/06/18 06:50 Hct 31.1 % (36.0-48.0) L 07/06/18 06:50 MCV 85.2 fl (80.0-105.0) 07/06/18 06:50 MCH 26.3 pg (25.0-35.0) 07/06/18 06:50 MCHC 30.9 g/dl (31.0-37.0) L 07/06/18 06:50 RDW 14.6 % (11.5-14.5) H 07/06/18 06:50 Plt Count 214 10^3/uL (120.0-450.0) 07/06/18 06:50 MPV 10.0 fl (7.0-11.0) 07/06/18 06:50 Gran % 61.8 % (50.0-68.0) 07/06/18 06:50 Lymph % (Auto) 26.8 % (22.0-35.0) 07/06/18 06:50 [place] % (Auto) 6.4 % (1.0-6.0) H 07/06/18 06:50 Eos % (Auto) 4.6 % (1.5-5.0) 07/06/18 06:50 Baso % (Auto) 0.4 % (0.0-3.0) 07/06/18 06:50 Gran # 3.07 (1.4-6.5) 07/06/18 06:50 Lymph # (Auto) 1.3 (1.2-3.4) 07/06/18 06:50 [place] # (Auto) 0.3 (0.1-0.6) 07/06/18 06:50 Eos # (Auto) 0.2 (0.0-0.7) 07/06/18 06:50 Baso # (Auto) 0.02 K/mm3 (0.0-2.0) 07/06/18 06:50 PT 11.3 SECONDS (9.4-12.5) 07/04/18 00:50 INR 0.99 07/04/18 00:50 APTT 32.1 Seconds (25.1-36.5) 07/04/18 00:50 Sodium 141 mmol/L (132-148) 07/06/18 06:50 Potassium 3.9 mmol/L (3.6-5.0) 07/06/18 06:50 Chloride 109 mmol/L (98-107) H 07/06/18 06:50 Carbon Dioxide 26 mmol/L (21-33) 07/06/18 06:50 Anion Gap 11 (10-20) 07/06/18 06:50 BUN 4 mg/dL (7-21) L 07/06/18 06:50 Creatinine 0.9 mg/dl (0.7-1.2) 07/06/18 06:50 Est GFR ( Amer) > 60 07/06/18 06:50 Est GFR (Non-Af Amer) > 60 07/06/18 06:50 POC Glucose (mg/dL) 91 mg/dL (65-110) 07/06/18 11:36 Random Glucose 93 mg/dL (70-110) 07/06/18 06:50 Calcium 8.4 mg/dL (8.4-10.5) 07/06/18 06:50 Phosphorus 4.0 mg/dL (2.5-4.5) 07/04/18 07:00 Magnesium 2.0 mg/dL (1.7-2.2) 07/04/18 07:00 Total Bilirubin 0.7 mg/dL (0.2-1.3) 07/06/18 06:50 AST 25 U/L (14-36) 07/06/18 06:50 ALT 40 U/L (7-56) 07/06/18 06:50 Alkaline Phosphatase 60 U/L (38-126) 07/06/18 06:50 Total Protein 6.3 g/dL (5.8-8.3) 07/06/18 06:50 Albumin 3.4 g/dL (3.0-4.8) 07/06/18 06:50 Globulin 2.9 gm/dL 07/06/18 06:50 Albumin/Globulin Ratio 1.2 (1.1-1.8) 07/06/18 06:50 Lipase 167 U/L (23-300) 07/04/18 00:50 Attending/Attestation - Attestation I have personally seen and examined this patient.: Yes I have fully participated in the care of the patient.: Yes I have reviewed all pertinent clinical information, including history, physical exam and plan: Yes Notes (Text): 07/06/18 16:06 Medical record note made by the resident after discussion with my direction and input after the patient was personally seen and examined by me. I have reviewed the chart and agree that the record accurately reflects by personal performance of the history, physical exam, data review, and medical decision-making, in the course for the patient. I have also personally directed the plan of care. 55 yrs old female with PMH of DM, HTN who presents with complaint of abdominal pain and intermittent diarrhea for past month. No reported rectal bleeding, significant weight loss, fever/chills. She had a colonoscopy 1 year ago which showed a "few" polyps as per patient. CT scan of abdomen and Pelvis showed finding suggestive of ileus. Patient symptoms has improved.There is no Nausea or vomiting.There is no diarrhea . Patient is tolerating soft diet.LFT are back to normal. Pelvic USG was unremarkable. Management plan was discussed in detail with patient. Education was provided.
== END 2018-07-06 14:02 | disposition home or self-care (01) ==
LOC: ED 23:19 → ERH 07-04 00:24 → 5RNO 07-04 03:09 → INTOOBSV 07-05 15:34 → OBSVTOIN 07-05 15:34
PROVIDERS: ADMIT Internal Medicine; ATTEND Internal Medicine
DX: K52.9 Noninfective gastroenteritis and colitis, unspecified (principal); K56.7 Ileus, unspecified; R10.31 Right lower quadrant pain; R10.11 Right upper quadrant pain; I10 Essential (primary) hypertension; D64.9 Anemia, unspecified; E11.9 Type 2 diabetes mellitus without complications; D49.519 Neoplasm of unspecified behavior of unspecified kidney; R63.4 Abnormal weight loss; F41.9 Anxiety disorder, unspecified; Z87.11 Personal history of peptic ulcer disease; Z79.4 Long term (current) use of insulin
CPT/HCPCS: 36415; 76856; 80053; 82948; 83690; 83735; 84100; 85025; 85610; 85730; 96361; 96365; 96367; 96372; 96375; 96376; 99285; C9113; G0378; J0696; J1644; J2405; J7030

== ENCOUNTER 2018-07-07 07:03 | Emergency (ER) | payer MEDICAID ==
[2018-07-07 07:21] VITALS: BMI 27.3
[2018-07-07] MEDS ORDERED: Sodium Chloride 0.9% 1,000 ML IV STA ×2 (07:23→09:16)
[2018-07-07] MEDS ORDERED: Atrop/Hyosc/Scopal/PB Elixir (120 ml) PO STA (07:24)
[2018-07-07] MEDS ORDERED: Alum-Mag Hydrox-Simethicone Susp (30 mL) PO STA (07:24)
--- NOTE | 2018-07-07 07:49 | ED PDOC ---
Arrival/HPI - General Chief Complaint: Abdominal Pain Time Seen by Provider: 07/07/18 07:05 - History of Present Illness Narrative History of Present Illness (Text): 55 y/o F w/ h/o DM, HTN presenting to the ED for RUQ abdominal pain with watery diarrhea that began this morning. The patient states she woke up with multiple episodes of watery diarrhea and a resurgence of a chronic abdominal pain that had been present for over a month. Per the patient's daughter, the patient had attempted to self-medicate with several medications such as Tylenol and Motrin with no alleviation in her symptoms. She reports associated blood streaked sputum as a result of forceful emesis and intermittent chills. She reports seeing Dr. Cazares(PCP) yesterday for a follow up. Of note, the patient had multiple admissions between 06/29 & 07/03 with repeated AMA signouts and comprehensive workup with unremarkable findings. She had been advised to follow up with GI outpatient, but has not. 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* Time/Duration: Prior to Arrival Symptom Onset: Gradual Symptom Course: Unchanged Severity Level: Moderate Activities at Onset: Rest Context: Home Past Medical History - Provider Review Nursing Documentation Reviewed: Yes - Travel History Have you recently traveled outside [place] w/in the past 3 mons?: No - Infectious Disease Hx of Infectious Diseases: None - Tetanus Immunization Tetanus Immunization: Unknown - Cardiac Hx Cardiac Disorders: Yes Hx Hypertension: Yes - Pulmonary Hx Respiratory Disorders: No - Neurological Hx Neurological Disorder: No - HEENT Hx HEENT Disorder: No - Renal Hx Renal Disorder: Yes Other/Comment: renal tumor - Endocrine/Metabolic Hx Diabetes Mellitus Type 2: Yes - Hematological/Oncological Hx Blood Disorders: No - Integumentary Hx Dermatological Disorder: No - Musculoskeletal/Rheumatological Hx Musculoskeletal Disorders: No - Gastrointestinal Hx Gastrointestinal Disorders: No - Genitourinary/Gynecological Hx Genitourinary Disorders: No - Psychiatric Hx Psychophysiologic Disorder: Yes Hx Anxiety: Yes Hx Depression: Yes Hx Substance Use: No - Surgical History Other/Comment: kidney tumor. and unknown abdominal surgery - Anesthesia Hx Anesthesia: Yes Hx Anesthesia Reactions: No Hx Malignant Hyperthermia: No - Suicidal Assessment Feels Threatened In Home Enviroment: No Family/Social History - Physician Review Nursing Documentation Reviewed: Yes Family/Social History: Unknown Family HX Smoking Status: Never Smoked Hx Alcohol Use: No Hx Substance Use: No Hx Substance Use Treatment: No Allergies/Home Meds Allergies/Adverse Reactions: Allergies No Known Allergies Allergy (Verified 07/03/18 11:44) Home Medications: Home Meds Medication Instructions Recorded Confirmed RX: Atorvastatin [Lipitor] 20 mg PO DAILY 11/01/16 07/07/18 RX: Insulin Lispro [Humalog 100 unit SQ AC 11/01/16 07/07/18 (Insulin Lispro)] RX: Valsartan [Diovan] 160 mg PO DAILY 11/01/16 07/07/18 RX: Insulin Glargine,Hum.rec.anlog 20 unit SQ HS 06/12/17 07/07/18 [Basaglar Kwikpen U-100] RX: Insulin Lispro [Humalog 15 unit SQ TID 06/12/17 07/07/18 Kwikpen U-100] RX: Omeprazole 40 mg PO DAILY 06/12/17 07/07/18 RX: Spironolactone [Aldactone] 25 mg PO DAILY 06/12/17 07/07/18 RX: metFORMIN [glucOPHAGE] 500 mg PO BID 06/12/17 07/07/18 Review of Systems - Physician Review All systems were reviewed & negative as marked: Yes - Review of Systems Respiratory: absent: SOB, Cough Cardiovascular: absent: Chest Pain, Palpitations Gastrointestinal: Abdominal Pain, Stool Changes, Diarrhea, Nausea, Vomiting Physical Exam Vital Signs Reviewed: Yes Vital Signs Temp Pulse Resp BP Pulse Ox 07/07/18 07:21 97.9 F 61 18 134/86 96 Temperature: Afebrile Blood Pressure: Normal Pulse: Regular Respiratory Rate: Normal Appearance: Positive for: Well-Appearing, Non-Toxic, Comfortable Mental Status: Positive for: Alert and Oriented X 3 - Systems Exam Head: Present: Atraumatic, Normocephalic Pupils: Present: PERRL Extroacular Muscles: Present: EOMI Conjunctiva: Present: Normal Mouth: Present: Moist Mucous Membranes Neck: Present: Normal Range of Motion Respiratory/Chest: Present: Clear to Auscultation, Good Air Exchange. No: Respiratory Distress Cardiovascular: Present: Regular Rate and Rhythm, Normal S1, S2 Abdomen: Present: Tenderness (RUQ tenderness to palpation), Normal Bowel Sounds. No: Rebound, McBurney's Point Tender, Mass/Organomegaly Upper Extremity: Present: Normal Inspection, Capillary Refill < 2s. No: Cyanosis, Edema Lower Extremity: Present: Normal Inspection, Capillary Refill < 2 s. No: Edema, CALF TENDERNESS Neurological: Present: GCS=15, CN II-XII Intact, Speech Normal Skin: Present: Warm, Dry, Normal Color. No: Rashes Psychiatric: Present: Alert, Oriented x 3, Normal Insight, Normal Concentration Medical Decision Making ED Course and Treatment: Impression 55 y/o F w/h/o PUD, DM, HTN, SBO complaining of abdominal pain and diarrhea Differential Diagnoses Include But Are Not Limited To: Gastroenteritis Carcinoid Syndrome Factitious Disorder Plan --Labs --EKG --Toradol --Maalox -- --UA --CXR --Reassess & disposition Progress Notes 07/07/18 09:23 Labs reviewed with no leukocytosis and mild hyperchloremia most likely secondary to dehydration. Patient noted to be sleeping at the bedside. UA positive for moderate bacteria. Macrobid ordered. 10:15 Patient reevaluated and noted to be sleeping at the bedside. When awakened, she reports minor relief. She is advised to continue supportive therapy and follow up with GI. She demonstrates understanding and will follow up. She is stable for discharge. - RAD Interpretation Radiology Orders: 07/07/18 07:23 CHEST PORTABLE [RAD] Stat - EKG Interpretation EKG Interpretation (Text): Sinus bradycardia at 59bpm No ST elevation or T wave inversion No QT prolongation Interpreted by ED Physician: Yes Type: 12 lead EKG - Medication Orders Current Medication Orders: Sodium Chloride (Sodium Chloride 0.9%) 1,000 mls @ 999 mls/hr IV .Q1H1M STA Stop: 07/07/18 08:23 Discontinued Medications Al Hydrox/Mg Hydrox/Simethicone (Maalox Plus 30 Ml) 30 ml PO STAT STA Stop: 07/07/18 07:25 Belladonna/Phenobarbital ( Elixir) 5 ml PO STAT STA Stop: 07/07/18 07:25 Disposition/Present on Arrival - Present on Arrival Any Indicators Present on Arrival: No History of DVT/PE: No History of Uncontrolled Diabetes: No Urinary Catheter: No History of Decub. Ulcer: No History Surgical Site Infection Following: None - Disposition Have Diagnosis and Disposition been Completed?: Yes Diagnosis: Gastroenteritis, Irritable bowel syndrome (IBS) Disposition: HOME/ ROUTINE Disposition Time: 09:33 Patient Plan: Discharge Condition: IMPROVED Discharge Instructions (ExitCare): Irritable Bowel Syndrome (DC), Gastroenteritis (ED) Print Language: BANGLADESHI Additional Instructions: All medical record entries made by the Scribe were at my direction and personally dictated by me. I have reviewed the chart and agree that the record accurately reflects my personal performance of the history, physical exam, medical decision making, and the department course for this patient. I have also personally directed, reviewed, and agree with the discharge instructions and disposition. PLEASE FOLLOW UP WITH YOUR SEWING MACHINE TESTER Prescriptions: RX: Loperamide HCl [Anti-Diarrheal] 2 mg PO BID 5 Days #10 tablet Nitrofurantoin Macrocrystals [Macrobid] 100 mg PO Q12H 7 Days #14 cap Referrals: Angelo Calzada DO [Staff Provider] - Follow up with primary Forms: Robin (Malay)
[2018-07-07 08:29] LABS: URINE BILIRUBIN SMALL (NEGATIVE); URINE BLOOD TRACE-INTACT (NEGATIVE); URINE GLUCOSE (UA) NEGATIVE (NEGATIVE); URINE LEUKOCYTE ESTERASE TRACE Leu/uL (NEGATIVE); URINE PROTEIN 100 mg/dL (<30 mg/dL); URINE UROBILINOGEN 0.2 E.U./dL (<1 E.U./dL)
[2018-07-07 08:37] LABS: BASO # 0.01 K/mm3 (0.0-2.0); BASO % 0.2 % (0.0-3.0); EOS # 0.1 (0.0-0.7); EOS % 2.1 % (1.5-5.0); GRAN # 4.67 (1.4-6.5); GRAN % 74.1 % (50.0-68.0); HEMOGLOBIN 10.2 g/dL (12.0-16.0); LYMPH % 16.3 % (22.0-35.0); MEAN CELL VOLUME 85.9 fl (80.0-105.0); MEAN CORPUSCULAR HEMOGLOBIN 26.7 pg (25.0-35.0); MEAN CORPUSCULAR HGB CONC 31.1 g/dl (31.0-37.0); MEAN PLATELET VOLUME 10.4 fl (7.0-11.0); MONO # 0.5 (0.1-0.6); MONO % 7.3 % (1.0-6.0); RBC 3.82 10^6/uL (3.5-6.1); RED CELL DISTRIBUTION WIDTH 14.8 % (11.5-14.5); WHITE BLOOD COUNT 6.3 10^3/uL (4.5-11.0)
[2018-07-07 08:39] LABS: VENOUS BLOOD GAS PO2 78 mm/Hg (30-55)
[2018-07-07 08:48] LABS: ALB/GLOB RATIO 1.3 (1.1-1.8); ALBUMIN 4.1 g/dL (3.0-4.8); ALT/SGPT 34 U/L (7-56); AST/SGOT 36 U/L (14-36); BLOOD UREA NITROGEN 9 mg/dL (7-21); CALCIUM 8.9 mg/dL (8.4-10.5); GFR NON-AFRICAN AMERICAN > 60; LIPASE 130 U/L (23-300)
[2018-07-07 08:56] LABS: URINE APPEARANCE CLEAR (CLEAR); URINE COLOR YELLOW (YELLOW)
[2018-07-07 09:15] LABS: URINE BACTERIA MANY (NEG)
[2018-07-07 09:16] LABS: URINE AMORPHOUS SEDIMENT FEW
[2018-07-07 09:54] VITALS: RESP 16; TEMP 98.2
[2018-07-07 09:55] VITALS: PULSE 66
[2018-07-07 10:06] VITALS: BP 116/69; O2SAT 100
--- NOTE | 2018-07-08 08:13 | CARD ---
APPROVED REPORT Date of service: 07/07/2018 EKG Measurement Heart [id number] ID [id number] <Conclusion> Sinus bradycardia Otherwise normal ECG
== END 2018-07-07 09:50 | disposition home or self-care (01) ==
LOC: ED 07:03
DX: K52.9 Noninfective gastroenteritis and colitis, unspecified (principal); K58.9 Irritable bowel syndrome, unspecified; I10 Essential (primary) hypertension; E11.9 Type 2 diabetes mellitus without complications
CPT/HCPCS: 80053; 81001; 82803; 83690; 83735; 85025; 87086; 93005; 96361; 96374; 96375; 99283; J1885; J7030

== ENCOUNTER 2018-07-18 19:49 | Emergency (ER) | payer MEDICAID ==
[2018-07-18 19:49] VITALS: BMI 27.3
[2018-07-18 20:54] VITALS: RESP 19; TEMP 98.4
--- NOTE | 2018-07-18 20:54 | ED PDOC ---
Arrival/HPI <Gilberto Gonzalez - Last Filed: 07/19/18 01:26> - General Historian: Patient, Family (daughter paulette) - History of Present Illness Narrative History of Present Illness (Text): 07/18/18 20:54 This is a 55 year old gibraltarian speaking female with PMH of PUD, DM, HTN, anxiety, renal tumor, SBO who presents for evaluation of fever (t max 100) and cough since yesterday. She is a poor historian and has multiple complaints. Pt states that the cough his productive of yellow phlegm, nonbloody or bilious. Pt reports numerous episodes of post-tussive vomiting. The episodes of vomiting have caused her to have midsternal, burning, nonradiating pain since today. Pt also reports LUQ and RUQ abdominal pain which started yesterday, associated with nausea. Pain is sharp, 10/10, nonradiating, unresponsive to Tylenol. She has also had a decreased appetite for more then a month. Pt also reports black, watery diarrhea for the past month. Last BM was this morning and was black and watery. She denies chills, numbness or tingling, hematochezia, visual changes, rash, recent travel, leg swelling or pain, dysuria, hematuria. Pt has a history of abdominal pain, and she states that this is similar to the abdominal pain that was recently worked up in the hospital. Pt was recently admitted for abdominal pain, nausea/vomiting (07/05). CT abdomen was concerning for possible adnexal inflammation +/- ovarian cyst. She had been advised to follow up with GI outpatient, but has not had time to do so yet. 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 Meds: See MAR Allx: NKDA Skein Washer: Menopause in 2009; no reports of vaginal bleeding since then Fam Hx: Breast CA Time/Duration: 24 hours Symptom Onset: Gradual Symptom Course: Unchanged <Timoteo Meraz - Last Filed: 07/19/18 04:17> - General Chief Complaint: Flu-like Symptoms Time Seen by Provider: 07/18/18 19:56 Past Medical History - Provider Review Nursing Documentation Reviewed: Yes - Infectious Disease Hx of Infectious Diseases: None - Tetanus Immunization Tetanus Immunization: Unknown - Reproductive Menopause: Yes - Cardiac Hx Cardiac Disorders: Yes Hx Hypertension: Yes - Pulmonary Hx Respiratory Disorders: No - Neurological Hx Neurological Disorder: No - HEENT Hx HEENT Disorder: No - Renal Hx Renal Disorder: Yes Other/Comment: renal tumor - Endocrine/Metabolic Hx Diabetes Mellitus Type 2: Yes - Hematological/Oncological Hx Blood Disorders: No - Integumentary Hx Dermatological Disorder: No - Musculoskeletal/Rheumatological Hx Musculoskeletal Disorders: No - Gastrointestinal Hx Gastrointestinal Disorders: No - Genitourinary/Gynecological Hx Genitourinary Disorders: No - Psychiatric Hx Psychophysiologic Disorder: Yes Hx Anxiety: Yes Hx Depression: Yes Hx Substance Use: No - Surgical History Other/Comment: kidney tumor. and unknown abdominal surgery - Anesthesia Hx Anesthesia: Yes Hx Anesthesia Reactions: No Hx Malignant Hyperthermia: No - Suicidal Assessment Feels Threatened In Home Enviroment: No <Timoteo Meraz - Last Filed: 07/19/18 04:17> Family/Social History - Physician Review Nursing Documentation Reviewed: Yes Family/Social History: Unknown Family HX Smoking Status: Never Smoked Hx Alcohol Use: No Hx Substance Use: No Hx Substance Use Treatment: No <Timoteo Meraz - Last Filed: 07/19/18 04:17> Allergies/Home Meds <Gilberto Gonzalez - Last Filed: 07/19/18 01:26> <Timoteo Meraz - Last Filed: 07/19/18 04:17> Allergies/Adverse Reactions: Allergies No Known Allergies Allergy (Verified 07/18/18 20:39) Home Medications: Home Meds Medication Instructions Recorded Confirmed Atorvastatin [Lipitor] 20 mg PO DAILY 11/01/16 07/18/18 Insulin Lispro [Humalog (Insulin 100 unit SQ AC 11/01/16 07/18/18 Lispro)] Valsartan [Diovan] 160 mg PO DAILY 11/01/16 07/18/18 Insulin Glargine,Hum.rec.anlog 20 unit SQ HS 06/12/17 07/18/18 [Basaglar Kwikpen U-100] Insulin Lispro [Humalog Kwikpen 15 unit SQ TID 06/12/17 07/18/18 U-100] Omeprazole 40 mg PO DAILY 06/12/17 07/18/18 Spironolactone [Aldactone] 25 mg PO DAILY 06/12/17 07/18/18 metFORMIN [glucOPHAGE] 500 mg PO BID 06/12/17 07/18/18 Review of Systems - Review of Systems Constitutional: Normal Eyes: Normal ENT: Normal Respiratory: SOB, Cough, Sputum Cardiovascular: Chest Pain Gastrointestinal: Abdominal Pain, Nausea, Vomiting, Anorexia Genitourinary Female: Normal Musculoskeletal: Normal Skin: Normal Neurological: Headache, Dizziness Endocrine: Normal Hemo/Lymphatic: Normal Psychiatric: Normal <Timoteo Meraz - Last Filed: 07/19/18 04:17> Physical Exam Vital Signs Temp Pulse Resp BP Pulse Ox 07/18/18 20:53 98.4 F 81 19 134/74 97 <Gilberto Gonzalez - Last Filed: 07/19/18 01:26> Vital Signs Reviewed: Yes Temperature: Afebrile Blood Pressure: Normal Pulse: Regular Respiratory Rate: Normal Appearance: Positive for: Well-Appearing, Non-Toxic, Uncomfortable (when coughing, otherwise in no acute distress) Pain Distress: None Mental Status: Positive for: Alert and Oriented X 3 - Systems Exam Head: Present: Atraumatic, Normocephalic Extroacular Muscles: Present: EOMI Conjunctiva: Present: Normal Respiratory/Chest: Present: Clear to Auscultation, Tender to Palpation (in the midsternal region). No: Wheezes, Rales, Retracting, Rhonchi, Tachypneic Cardiovascular: Present: Regular Rate and Rhythm, Normal S1, S2. No: Murmurs, Tachycardic Abdomen: Present: Tenderness (moderate tenderness to palpation in the RUQ and LUQ), Scars. No: Distention, Normal Bowel Sounds (overactive bowel sounds in all 4 quadrants), Peritoneal Signs, Rebound, Guarding, McBurney's Point Tender Upper Extremity: Present: Normal Inspection, NORMAL PULSES, Capillary Refill < 2s. No: Edema Lower Extremity: Present: Normal Inspection, NORMAL PULSES, Capillary Refill < 2 s. No: CALF TENDERNESS Neurological: Present: GCS=15 Skin: Present: Warm, Dry, Normal Color Psychiatric: Present: Alert, Oriented x 3 <Timoteo Meraz - Last Filed: 07/19/18 04:17> Medical Decision Making ED Course and Treatment: Impression: Pt seen and evaluated with medical case manager seasonal customer service associate. Aware and agree with HPI, clinical findings, plan, and management. Pt, whose past medical history includes PUD, diabetes, hypertension, renal tumor, and SBO, presented for fever and productive cough since yesterday, with some episodes of post-tussive vomiting and abdominal pain. Plan: -- EKG -- Chest X-ray -- Labs, cardiac enzymes, lipase -- Elixir -- Maalox -- Pepcid -- Robitussin -- Zofran -- IV fluids -- Reassess and disposition - RAD Interpretation Radiology Orders: 07/18/18 21:07 CHEST PORTABLE [RAD] Stat - Medication Orders Current Medication Orders: Sodium Chloride (Sodium Chloride 0.9%) 1,000 mls @ 999 mls/hr IV .Q1H1M STA Stop: 07/18/18 22:05 Last Admin: 07/18/18 21:26 Dose: 999 mls/hr eMAR Start Stop Document 07/18/18 21:26 OCS (Rec: 07/18/18 21:26 [id number] Intravenous Solution Start Date 07/18/18 Start Time 21:26 End Date 07/18/18 End time 22:27 Total Infusion Time 61 Discontinued Medications Al Hydrox/Mg Hydrox/Simethicone (Maalox Plus 30 Ml) 30 ml PO STAT STA Stop: 07/18/18 21:06 Belladonna/Phenobarbital ( Elixir) 5 ml PO STAT STA Stop: 07/18/18 21:06 Famotidine (Pepcid) 20 mg IVP STAT STA Stop: 07/18/18 21:06 Last Admin: 07/18/18 21:26 Dose: 20 mg IVP Administration Document 07/18/18 21:26 OCS (Rec: 07/18/18 21:26 [id number] Charges for Administration # of IVP Administrations 1 Guaifenesin/Codeine Phosphate (Robitussin W/Codeine) 5 ml PO STAT STA Stop: 07/18/18 21:06 Ondansetron HCl (Zofran Inj) 4 mg IVP STAT STA Stop: 07/18/18 21:06 Last Admin: 07/18/18 21:26 Dose: 4 mg IVP Administration Document 07/18/18 21:26 OCS (Rec: 07/18/18 21:26 OCS [id number]) Charges for Administration # of IVP Administrations 1 <Gilberto Gonzalez - Last Filed: 07/19/18 01:26> ED Course and Treatment: 07/18/18 21:23 CBC, CMP, lipase, cardiac iso, EKG, CXR Pepcid, zofran, maalox, donnatol, robotussin with codeine, NS IVF 1L bolus. Will re-eval. 07/19/18 01:17 On re-evaluation, pt states that she feels better. She says that the cough has improved and her abdominal pain has improved. She has not had any episodes of vomiting in the ED and cough has markedly increased. She remains afebrile without leukocytosis. I stressed the importance to follow up with PMD and GI within 1 week of discharge. She agrees and states that she will do so. Re-evaluation Time: 01:05 Reassessment Condition: Improved - RAD Interpretation Narrative RAD Interpretations (Text): 07/18/18 23:15 CXR shows no acute process; as read by ED attending Control Officer: ED Physician - EKG Interpretation EKG Interpretation (Text): EKG shows NSR at 70, no STTW changes; RI is 136, QTc is 449; as read by ED attending Interpreted by ED Physician: Yes <Timoteo Meraz - Last Filed: 07/19/18 04:17> - PA / DRIVER LICENSE EXAMINER / Resident Statement XU has reviewed & agrees with the documentation as recorded. / has examined the patient and agrees with the treatment plan. <Gilberto Gonzalez - Last Filed: 07/19/18 01:26> Disposition/Present on Arrival <Gilberto Gonzalez - Last Filed: 07/19/18 01:26> - Present on Arrival Any Indicators Present on Arrival: No History of DVT/PE: No History of Uncontrolled Diabetes: No Urinary Catheter: No History of Decub. Ulcer: No History Surgical Site Infection Following: None - Disposition Have Diagnosis and Disposition been Completed?: Yes Disposition Time: 01:20 Patient Plan: Discharge <Timoteo Meraz - Last Filed: 07/19/18 04:17> - Disposition Diagnosis: Gastritis, Cough Disposition: HOME/ ROUTINE Condition: STABLE Discharge Instructions (ExitCare): Cough, Adult (DC), Gastritis (DC) Prescriptions: guaiFENesin/Codeine [Codeine/Guaifenesin 10 MG/5 Ml-100 MG/5 Ml 5] 5 ml PO Q6 PRN #5 oz PRN Reason: Cough Ondansetron [Zofran Odt] 4 mg PO Q6 PRN #12 odt PRN Reason: Nausea/Vomiting Referrals: Ladi Salazar MD [Primary Care Provider] - Follow up with primary Forms: [employer] (Sammarinese)
[2018-07-18] MEDS ORDERED: guaiFENesin-Codeine 100-10mg/5ml Syrup (5 ml) UD PO STA (21:05)
[2018-07-18] MEDS ORDERED: Sodium Chloride 0.9% 1,000 ML IV STA (21:05)
[2018-07-18] MEDS ORDERED: Alum-Mag Hydrox-Simethicone Susp (30 mL) PO STA (21:05)
[2018-07-18] MEDS ORDERED: Atrop/Hyosc/Scopal/PB Elixir (120 ml) PO STA (21:05)
[2018-07-18 22:20] LABS: BASO # 0.05 K/mm3 (0.0-2.0); BASO % 0.6 % (0.0-3.0); EOS # 0.3 (0.0-0.7); EOS % 2.9 % (1.5-5.0); GRAN # 5.69 (1.4-6.5); GRAN % 63.5 % (50.0-68.0); HEMOGLOBIN 11.2 g/dL (12.0-16.0); LYMPH # 2.2 (1.2-3.4); LYMPH % 24.4 % (22.0-35.0); MEAN CELL VOLUME 84.4 fl (80.0-105.0); MEAN CORPUSCULAR HEMOGLOBIN 26.9 pg (25.0-35.0); MEAN CORPUSCULAR HGB CONC 31.9 g/dl (31.0-37.0); MEAN PLATELET VOLUME 9.6 fl (7.0-11.0); MONO # 0.8 (0.1-0.6); MONO % 8.6 % (1.0-6.0); RBC 4.16 10^6/uL (3.5-6.1); RED CELL DISTRIBUTION WIDTH 13.9 % (11.5-14.5)
[2018-07-19 00:57] VITALS: BP 104/64; PULSE 72; O2SAT 95
[2018-07-19 01:02] LABS: ALB/GLOB RATIO 1.2 (1.1-1.8); ALBUMIN 3.9 g/dL (3.0-4.8); ALT/SGPT 46 U/L (7-56); AST/SGOT 44 U/L (14-36); BLOOD UREA NITROGEN 13 mg/dL (7-21); GFR NON-AFRICAN AMERICAN > 60; LIPASE 92 U/L (23-300)
[2018-07-19 01:05] LABS: TROPONIN I < 0.01 ng/mL
--- NOTE | 2018-07-19 09:53 | RAD ---
Date of service: 07/18/2018 HISTORY: productive cough COMPARISON: 06/30/2018 FINDINGS: LUNGS: No active pulmonary disease. PLEURA: No significant pleural effusion identified, no pneumothorax apparent. CARDIOVASCULAR: No aortic atherosclerotic calcification present. Normal cardiac size. No pulmonary vascular congestion. OSSEOUS STRUCTURES: No significant abnormalities. VISUALIZED UPPER ABDOMEN: Normal. OTHER FINDINGS: None. IMPRESSION: No active disease.
--- NOTE | 2018-07-19 12:18 | CARD ---
APPROVED REPORT Date of service: 07/18/2018 EKG Measurement Heart [id number] <Conclusion> Normal sinus rhythm Normal ECG
== END 2018-07-19 01:32 | disposition home or self-care (01) ==
LOC: ED 19:49
DX: K29.70 Gastritis, unspecified, without bleeding (principal); R05 Cough; I10 Essential (primary) hypertension; E11.9 Type 2 diabetes mellitus without complications
CPT/HCPCS: 71045; 80053; 82550; 83615; 83690; 83735; 84100; 84484; 85025; 93005; 96361; 96374; 96375; 99284; J1885; J2405; J7030